=== PATIENT | female | born 1960 | race Caucasian/White ===

== ENCOUNTER 2017-03-21 10:10 | Day surgery (SDC) | payer BC ==
[2017-03-19 17:20] VITALS: BMI 25.7
[~2017-03-21 10:10] MED LIST: LACTATED RINGERS 1,000 ML IV SCH
[2017-03-21 10:50] VITALS: RESP 16; TEMP 97.7
[2017-03-21] MEDS ORDERED: LIDOCAINE 1% 20 ML VIAL (10MG/ML) FOR IV START INTRADERMA ONE (10:50)
[2017-03-21] MEDS ORDERED: PROPOFOL 10 MG/ML 20 ML VIAL IV ONE (12:03)
--- NOTE | 2017-03-21 12:20 | P.PCN ---
Date of Procedure: 03/21/17 Procedure(s) Performed: BRIEF HISTORY: Patient is a 56-year-old pleasant female, scheduled for an elective colonoscopy as a part of screening for colon neoplasia. PROCEDURE PERFORMED: Colonoscopy. PREOPERATIVE DIAGNOSIS: Screening for colon cancer. IV sedation per Anesthesia. PROCEDURE: After informed consent was obtained, the patient, was brought into the endoscopy unit. IV sedation was administered by Anesthesia under continuous monitoring. Digital rectal examination was normal. Initially the Olympus CF- 160 flexible video colonoscope was then inserted in the rectum, gradually advanced into the cecum without any difficulty. Careful examination was performed as the scope was gradually being withdrawn. Ileocecal valve and the appendiceal orifice were visualized and appeared normal. Prep was excellent. Mucosa of the cecum, ascending colon, transverse colon, descending colon, sigmoid colon, and rectum appeared normal. Retroflexion was performed in the rectum and no lesions were seen. The patient tolerated the procedure well. IMPRESSION: Normal-appearing colon from rectum to cecum with no evidence of colorectal neoplasia. RECOMMENDATIONS: Findings of this examination were discussed with the patient as well as her family. She was advised to have a repeat screening colonoscopy in 10 years.
[2017-03-21 12:45] VITALS: BP 116/75; PULSE 74
== END 2017-03-21 13:06 | disposition home or self-care (01) ==
LOC: ORWHC2ENDO 10:10
PROVIDERS: ATTEND Internal Medicine Gastroenterology
DX: Z12.11 Encounter for screening for malignant neoplasm of colon (principal); I25.10 Atherosclerotic heart disease of native coronary artery without angina pectoris; I10 Essential (primary) hypertension; Z87.891 Personal history of nicotine dependence; Z95.5 Presence of coronary angioplasty implant and graft; Z87.19 Personal history of other diseases of the digestive system; Z79.82 Long term (current) use of aspirin; Z79.1 Long term (current) use of non-steroidal anti-inflammatories (NSAID); Z79.899 Other long term (current) drug therapy; Z88.5 Allergy status to narcotic agent; Z88.0 Allergy status to penicillin; Z88.8 Allergy status to other drugs, medicaments and biological substances
CPT/HCPCS: J2704; G0121

== ENCOUNTER → 2017-05-14 | Outpatient (CLI) | payer BC ==
[2017-05-14 14:40] LABS: CH 30.4; CHCM 32.1; HCT 50.2 % (34.0-46.0); HDW 2.19; HGB 15.6 gm/dL (11.4-16.0); MCH 29.5 pg (25.0-35.0); MCV 95.1 fL (80.0-100.0); Mean Platelet Volume 7.9; RBC 5.28 m/uL (3.80-5.40); RDW 14.6 % (11.5-15.5); WBC 10.5 k/uL (3.8-10.6)
[2017-05-14 14:54] LABS: Anion Gap 10 mmol/L; Blood Urea Nitrogen 20 mg/dL (7-17); Carbon Dioxide 25 mmol/L (22-30); Chloride 106 mmol/L (98-107); Non-African American GFR(MDRD) 58 (>60 ml/min/1.73 sqM); Potassium 4.6 mmol/L (3.5-5.1); Sodium 141 mmol/L (137-145)
== END | disposition home or self-care (01) ==
LOC: LABPAT 14:06
PROVIDERS: ATTEND Internal Medicine Interventional Cardiology
DX: Z01.812 Encounter for preprocedural laboratory examination (principal); I25.10 Atherosclerotic heart disease of native coronary artery without angina pectoris
CPT/HCPCS: 80051; 82565; 84520; 85027

== ENCOUNTER 2017-05-30 05:54 | Day surgery (SDC) | payer BC ==
[2017-05-28 15:20] VITALS: BMI 25.9
[~2017-05-30 05:54] MED LIST changes: +ALPRAZolam 0.25 MG TAB PO PRN; +ALPRAZolam 0.5 MG TAB PO PRN; +ASPIRIN 325 MG TAB PO STA; -LACTATED RINGERS 1,000 ML IV SCH; +NITROGLYCERIN SL TABS 0.4 MG TAB SUBLINGUAL PRN; +SODIUM CHLORIDE 0.9% 1,000 ML in EMPTY BAG 1 BAG IV ONE
[2017-05-30 06:55] VITALS: RESP 20; TEMP 98.4
[2017-05-30 07:00] LABS: Anion Gap 7 mmol/L; Blood Urea Nitrogen 14 mg/dL (7-17); Calcium 9.7 mg/dL (8.4-10.2); Carbon Dioxide 26 mmol/L (22-30); Chloride 109 mmol/L (98-107); Glucose 98 mg/dL (74-99); Non-African American GFR(MDRD) >60 (>60 ml/min/1.73 sqM); Potassium 4.3 mmol/L (3.5-5.1); Sodium 142 mmol/L (137-145)
[2017-05-30] MEDS ORDERED: VERAPAMIL 2.5 MG/ML 2 ML AMP ONE (07:16)
[2017-05-30] MEDS ORDERED: fentaNYL (PF) 50 MCG/ML 2 ML AMP ONE (07:17)
[2017-05-30] MEDS ORDERED: LIDOCAINE 2% INJ 20 MG/ML (20 ML MDV) ONE (07:17)
[2017-05-30] MEDS ORDERED: fentaNYL (PF) 50 MCG/ML 2 ML AMP IV ONE (07:27)
[2017-05-30] MEDS ORDERED: IV FLUID CONTINUATION 1,000 ML IV ONE (07:27)
[2017-05-30] MEDS ORDERED: LIDOCAINE 2% INJ 20 MG/ML SQ ONE (07:30)
[2017-05-30] MEDS ORDERED: MIDAZOLAM 2 MG/2 ML VIAL ONE (07:31)
[2017-05-30] MEDS ORDERED: MIDAZOLAM 2 MG/2 ML VIAL IV ONE (07:33)
[2017-05-30] MEDS ORDERED: VERAPAMIL SYRINGE (5 MG/10 ML) INTRAARTER ONE (07:35)
[2017-05-30] MEDS ORDERED: HEPARIN SODIUM 1,000 UN/ML (10ML VL) ONE (07:42)
[2017-05-30] MEDS ORDERED: IOHEXOL 350 MG/ML 125ML BOTTLE INJ ONE (07:47)
[2017-05-30] MEDS ORDERED: RX INFO: IV CONTRAST WAS GIVEN 1 EACH MISC MISCELLANE PRN (08:07)
[2017-05-30] MEDS ORDERED: DICYCLOMINE 10 MG CAP PO PRN (08:08)
[2017-05-30] MEDS ORDERED: NICOTINE POLACRILEX 2 MG GUM BUCCAL PRN (08:08)
[2017-05-30] MEDS ORDERED: IPRATROPIUM-ALBUTEROL 3 ML NEB INHALATION PRN (08:08)
[2017-05-30] MEDS ORDERED: IBUPROFEN 400 MG TAB PO PRN (08:08)
[2017-05-30] MEDS ORDERED: LIDOCAINE 5% PATCH TOPICAL PRN (08:08)
[2017-05-30] MEDS ORDERED: CYCLOBENZAPRINE 10 MG TAB PO PRN (08:08)
[2017-05-30] MEDS ORDERED: NON-FORMULARY DRUG (Alprazolam [Xanax] 1 MG) PO PRN (08:08)
[2017-05-30] MEDS ORDERED: SODIUM CHLORIDE 0.9% 1,000 ML IV SCH (08:15)
[2017-05-30] MEDS ORDERED: SULFACETAMIDE SOD 10% OPHTH DROPS 15 ML BTL LEFT EYE SCH (08:15)
--- NOTE | 2017-05-30 08:25 | CC ---
CARDIAC CATHETERIZATION REPORT Ms. Farfan is a 56-year-old female known history of coronary artery disease, history of hypertension, hyperlipidemia who has been complaining of progressive symptoms of dyspnea on exertion. She underwent myocardial perfusion imaging that revealed a partially reversible anteroapical wall defect. In view of that, recommendation made regarding cardiac catheterization. The procedures, risks and complications were discussed with the patient who is in full understanding and agreement. 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 Using Xylocaine anesthesia and Seldinger technique, a 6-[place]izen [place] sheath was introduced in the right radial artery. Selective right and left coronary angiography was performed using 5- [place] 3 and half bend right and left Leora catheter. Multiple views of the coronary artery including hemiaxial was obtained. Following that, 5-[place]izen [place] tight pigtail catheter was introduced into the left ventricle and a 30 degree ANTHONY view of the left ventricle was obtained. Following that, the catheter and sheaths were removed. Hemostasis was obtained with deployment of a TR band. There was no immediate complication. The patient was returned to her room in stable condition. Of note, the patient received 4000 units of intravenous heparin as well as intra-arterial verapamil. FINDINGS: 1. Left main: This is the short size vessel bifurcating into left circumflex, left anterior descending artery. Left main coronary artery has no evidence of high- grade stenosis. 2. Left anterior descending artery: This is a large-sized vessel reaching to the apex with a wraparound the apex segment. The left anterior descending artery gives rise to two diagonal branch of small to moderate caliber. The left anterior descending artery has no evidence of high-grade stenosis. 3. Left circumflex: This is a large nondominant vessel giving rise to a large obtuse marginal branch. The left circumflex as well as branches have no evidence of obstructive coronary artery disease. 4. Right coronary artery: This is a large dominant vessel bifurcating distally to PDA and posterolateral segment and branches. The stented segment in the proximal and mid area are patent with minimal 10% plaque. The rest of the vessel has no high- grade stenosis. 5. Left ventriculogram: Left ventriculogram was performed in 30 degree ANTHONY view and revealed mild small anteroapical hypokinesis, ejection fraction of 50%. There was no mitral regurgitation. 6. HEMODYNAMICS: There was no gradient across the aortic valve. The left ventricular end-diastolic pressure was 16 mmHg. CONCLUSION: 1. Minimal obstructive disease involving the right coronary artery. 2. Minimal anteroapical hypokinesis. RECOMMENDATION: In view of findings and anatomy I have recommend continued medical therapy with aggressive coronary risk factor modifications that have been initiated. Those findings and recommendations were discussed with the patient and her family and are in full understanding and agreement. Duration of procedure is 22 minutes. MMODL / IJN: [id number] /
--- NOTE | 2017-05-30 08:25 | LTR ---
DATE OF SERVICE: 05/30/[address] Olivier: I had the pleasure of performing cardiac catheterization on Ms. Farfan at [facility] on May 30. A full copy of procedure note will be forwarded to you. In brief, she was found to have no evidence of high-grade stenosis and no progression of disease in the right coronary artery. Based on those findings, I have recommend continued medical therapy with aggressive coronary risk factor modifications that you have initiated. Thank you again for allowing me to participate in her care. Please feel free to call for any questions. Sincerely yours, MMODL / IJN: [id number] /
[2017-05-30] MEDS ORDERED: ETODOLAC 400 MG TAB PO SCH (09:00)
[2017-05-30] MEDS ORDERED: [UNRECOGNIZED DRUG - REMARK] PO SCH (09:00)
[2017-05-30] MEDS ORDERED: SYMBICORT 160-4.5 MCG INHALER INHALATION SCH (09:00)
[2017-05-30] MEDS ORDERED: METOPROLOL SUCCINATE (ER) 25 MG TAB.ER.24H PO SCH (09:00)
[2017-05-30] MEDS ORDERED: ASPIRIN 81 MG PO SCH (09:00)
[2017-05-30] MEDS ORDERED: UBIDECARENONE 200 MG PO SCH (09:00)
[2017-05-30] MEDS ORDERED: IPRATROPIUM-ALBUTEROL 3 ML NEB IH SCH (09:00)
[2017-05-30] MEDS ORDERED: NON-FORMULARY DRUG (Magnesium [Magnesium] 400 MG) PO SCH (09:00)
[2017-05-30] MEDS ORDERED: [UNRECOGNIZED DRUG - REMARK] PO SCH (09:00)
[2017-05-30] MEDS ORDERED: CHOLECALCIFEROL 1,000 UNIT TAB PO SCH (09:00)
[2017-05-30] MEDS ORDERED: MULTIVITAMINS, THERA 1 EACH TAB PO SCH (09:00)
[2017-05-30 13:24] VITALS: BP 128/59; PULSE 84
[2017-05-30] MEDS ORDERED: AMITRIPTYLINE HCL 25 MG TAB PO SCH (21:00)
== END 2017-05-30 13:24 | disposition home or self-care (01) ==
LOC: CATHCVL 05:54
PROVIDERS: ATTEND Internal Medicine Interventional Cardiology
DX: I25.10 Atherosclerotic heart disease of native coronary artery without angina pectoris (principal); I10 Essential (primary) hypertension; E78.2 Mixed hyperlipidemia; R00.2 Palpitations; M19.90 Unspecified osteoarthritis, unspecified site; J44.9 Chronic obstructive pulmonary disease, unspecified; E78.00 Pure hypercholesterolemia, unspecified; Z79.82 Long term (current) use of aspirin; Z79.899 Other long term (current) drug therapy
CPT/HCPCS: 93458; 80048; 81025; C1894; C1769; J2001; J2250; J3010; J1644; Q9967

== ENCOUNTER → 2017-06-26 | Outpatient (CLI) | payer OTHER ==
[2017-06-26 10:16] LABS: Basophils % (A) 1 %; Eosinophils # (A) 0.2 k/uL (0-0.7); Eosinophils % (A) 3 %; HCT 45.3 % (34.0-46.0); Lymphocytes # (A) 1.6 k/uL (1.0-4.8); Lymphocytes % (A) 28 %; MCH 30.3 pg (25.0-35.0); MCHC 33.1 g/dL (31.0-37.0); MCV 91.6 fL (80.0-100.0); Mean Platelet Volume 7.4; Monocytes # (A) 0.4 k/uL (0-1.0); Monocytes % (A) 7 %; Neutrophils # (A) 3.4 k/uL (1.3-7.7); Neutrophils % (A) 59 %; Platelet Count 201 k/uL (150-450); RBC 4.95 m/uL (3.80-5.40); RDW 13.5 % (11.5-15.5); WBC 5.7 k/uL (3.8-10.6)
[2017-06-26 10:42] LABS: ALT 39 U/L (9-52); AST 24 U/L (14-36); Alkaline Phosphatase 65 U/L (38-126); Anion Gap 10 mmol/L; Blood Urea Nitrogen 17 mg/dL (7-17); Calcium 9.3 mg/dL (8.4-10.2); Carbon Dioxide 25 mmol/L (22-30); Chloride 109 mmol/L (98-107); Cholesterol 171 mg/dL (<200); Creatine Kinase 89 U/L (30-135); Glucose 99 mg/dL (74-99); HDL Cholesterol 73 mg/dL (40-60); LDL Cholesterol,Calculated 81 mg/dL (0-99); Sodium 144 mmol/L (137-145); Total Bilirubin 0.6 mg/dL (0.2-1.3); Total Protein 6.7 g/dL (6.3-8.2); Triglycerides 85 mg/dL (<150)
[2017-06-26 10:58] LABS: T4, Free (Free Thyroxine) 1.47 ng/dL (0.78-2.19)
== END | disposition home or self-care (01) ==
LOC: LABWHC1 09:49
PROVIDERS: ATTEND Family Medicine
DX: I25.9 Chronic ischemic heart disease, unspecified (principal); E03.9 Hypothyroidism, unspecified
CPT/HCPCS: 36415; 80053; 80061; 82550; 84439; 84443; 84481; 85025

== ENCOUNTER → 2017-10-14 | Outpatient (CLI) | payer OTHER ==
[2017-10-14 10:22] LABS: ALT 35 U/L (9-52); AST 26 U/L (14-36); Albumin 4.2 g/dL (3.5-5.0); Alkaline Phosphatase 73 U/L (38-126); Anion Gap 12 mmol/L; Blood Urea Nitrogen 18 mg/dL (7-17); Calcium 9.2 mg/dL (8.4-10.2); Carbon Dioxide 27 mmol/L (22-30); Chloride 107 mmol/L (98-107); Glucose 93 mg/dL (74-99); Sodium 146 mmol/L (137-145); Total Bilirubin 0.4 mg/dL (0.2-1.3); Total Protein 6.8 g/dL (6.3-8.2)
== END | disposition home or self-care (01) ==
LOC: LABWHC1 07:24
PROVIDERS: ATTEND Internal Medicine
DX: E27.3 Drug-induced adrenocortical insufficiency (principal)
CPT/HCPCS: 36415; 80053; 82024; 82533

== ENCOUNTER → 2018-05-11 | Outpatient (CLI) | payer OTHER ==
--- NOTE | 2018-05-13 11:06 | MM ---
Reason for exam: screening (asymptomatic). Last mammogram was performed 1 year and 2 months ago. History: Patient is postmenopausal and had first child at age 36. Silicone gel implants in both breasts, 2016. Saline implants in both breasts, 2001. Cyst aspiration of both breasts. Cyst aspiration of the left breast. Took estrogen for 3 years. Physical Findings: A clinical breast exam by your physician is recommended on an annual basis and results should be correlated with mammographic findings. MG 3D Screen Mammo Imp/Cad Bilateral CC, MLO, and ID view(s) were taken. Prior study comparison: February 28, 2017, bilateral MG 3d screen mammo imp/cad. March 16, 2015, bilateral MG diag mamm implants RADHA w CAD. There are scattered fibroglandular densities. Bilateral breast implants. No significant changes when compared with prior studies. ASSESSMENT: Benign, BI-RAD 2 RECOMMENDATION: Routine screening mammogram of both breasts.
== END | disposition home or self-care (01) ==
LOC: RADMAMWWP 13:24
PROVIDERS: ATTEND Obstetrics & Gynecology
DX: Z12.31 Encounter for screening mammogram for malignant neoplasm of breast (principal)
CPT/HCPCS: 77063; 77067

== ENCOUNTER → 2018-08-11 | Outpatient (CLI) | payer OTHER ==
--- NOTE | 2018-08-11 15:50 | CT ---
EXAMINATION TYPE: CT chest wo con DATE OF EXAM: 08/11/2018 COMPARISON: CTA chest May 27, 2017 HISTORY: SOB, Aortic aneurysm CT DLP: 232.3 mGycm. Automated Exposure Control for Dose Reduction was Utilized. TECHNIQUE: CT scan of the thorax is performed without IV contrast. FINDINGS: LUNGS: Mild to moderate underlying emphysematous change most prominent in the upper lungs is redemons trated. No suspicious nodules or masses are present. No pleural effusion or pneumothorax is seen bila terally. No suspicious consolidation is present. Tracheobronchial tree is patent. MEDIASTINUM: Lack of IV contrast is noted to limit evaluation for mediastinal and especially hilar ad enopathy. There are no definitive greater than 1 cm hilar or mediastinal lymph nodes. No cardiomega ly or pericardial effusion is seen. Ascending aorta measures up to 3.6 cm in diameter at level of pul monary bifurcation axial image 29. No significant change from prior CT. There is suspected coronary s tent in the distal RCA. OTHER: Bilateral breast implants are redemonstrated only partially imaged. Cholecystectomy clips are redemonstrated. Moderate multilevel spurring midthoracic spine is again seen. IMPRESSION: Accounting for technical differences fairly stable 3.6 cm ectasia of the ascending aorta.
== END ==
LOC: RADCTMAIN 14:38
PROVIDERS: ATTEND Family Medicine
DX: I77.810 Thoracic aortic ectasia (principal)
CPT/HCPCS: 71250

== ENCOUNTER → 2019-07-30 | Outpatient (CLI) | payer OTHER ==
--- NOTE | 2019-08-03 09:09 | MM ---
Reason for exam: screening (asymptomatic). Last mammogram was performed 1 year and 3 months ago. History: Patient is postmenopausal and had first child at age 36. Silicone gel implants in both breasts, 2016. Saline implants in both breasts, 2001. Cyst aspiration of both breasts. Cyst aspiration of the left breast. Took estrogen for 3 years. Physical Findings: A clinical breast exam by your physician is recommended on an annual basis and results should be correlated with mammographic findings. MG Screening Mammo Implant/CAD Bilateral CC, MLO, and ID view(s) were taken. Prior study comparison: May 11, 2018, bilateral MG 3d screen mammo imp/cad. February 28, 2017, bilateral MG 3d screen mammo imp/cad. There are scattered fibroglandular densities. Bilateral retropectoral silicone implants. No significant changes when compared with prior studies. ASSESSMENT: Benign, BI-RAD 2 RECOMMENDATION: Routine screening mammogram of both breasts in 1 year.
== END | disposition home or self-care (01) ==
LOC: RADMAMWWP 13:39
PROVIDERS: ATTEND Obstetrics & Gynecology
DX: Z12.31 Encounter for screening mammogram for malignant neoplasm of breast (principal)
CPT/HCPCS: 77067

== ENCOUNTER 2019-08-12 18:23 | Emergency (ER) | payer OTHER ==
[2019-08-12 18:32] VITALS: RESP 18
[2019-08-12] MEDS ORDERED: ASPIRIN 81 MG PO STA (18:48)
[2019-08-12] MEDS ORDERED: MORPHINE SULFATE 2 MG/ML SYRINGE IVP STA ×2 (18:48→20:28)
[2019-08-12] MEDS ORDERED: SODIUM CHLORIDE 0.9% 1,000 ML IV STA (18:48)
[2019-08-12] MEDS ORDERED: ONDANSETRON 4 MG/2 ML VIAL IVP STA (18:49)
[2019-08-12] MEDS ORDERED: KETOROLAC 30 MG/ML 1 ML VIAL IVP STA (18:49)
[2019-08-12] MEDS ORDERED: IPRATROPIUM-ALBUTEROL 3 ML NEB INHALATION STA (18:55)
--- NOTE | 2019-08-12 18:57 | ED ---
General Adult HPI - General Chief complaint: Chest Pain Stated complaint: SOB, Back Pain Time Seen by Provider: 08/12/19 18:39 Source: patient Mode of arrival: ambulatory Limitations: no limitations - History of Present Illness Initial comments: 59-year-old female patient presents to the emergency department today for evaluation of right sided chest pain radiating through to the back. Patient states she's had the pain last couple of days though more severe today. Patient states the pain is constant, she is unable to describe the type of pain she is experiencing. Patient denies any increase in the pain with movement or deep breathing. States she does feel somewhat short of breath. Patient states that she does have a intermittent cough due to emphysema. There is any sputum production. She denies any nausea or vomiting with this. Denies any sweats. Patient states she's had multiple abdominal surgeries including cholecystectomy. His any hematuria, dysuria, urinary frequency, urinary urgency. Patient denies any recent rash, fever, chills, abdominal pain, diarrhea, constipation, numbness, tingling, dizziness, weakness, headache, visual changes, or any other complaints. - Related Data Home Medications Medication Instructions Recorded Confirmed ALPRAZolam [Xanax] 1 mg PO BID PRN 04/18/14 05/28/17 Amitriptyline HCl [Elavil] 25 mg PO HS 04/18/14 05/28/17 Aspirin 81 mg PO BID 04/18/14 05/30/17 Budesonide-Formot 160-4.5 Mcg 2 puff INHALATION BID 04/18/14 05/28/17 [Symbicort 160-4.5 Mcg Inhaler] Dicyclomine [Bentyl] 10 mg PO TID PRN 04/18/14 05/30/17 Ipratropium-Albuterol Nebulize 3 ml IH QID 04/18/14 05/28/17 [Duoneb 0.5 mg-3 mg/3 ml Soln] Lidocaine 5% Patch [Lidoderm] 1 patch TOPICAL DAILY PRN 04/18/14 05/30/17 Metoprolol Succinate (ER) [Toprol 25 mg PO DAILY 04/18/14 05/30/17 XL] Nitroglycerin Sl Tabs [Nitrostat] 0.4 mg SL DIRECTED PRN 04/18/14 05/28/17 Plant Stanol Mariza [Cholest Off] 900 mg PO DAILY 04/18/14 05/30/17 Ubidecarenone [Coenzyme Q10] 200 mg PO DAILY 04/18/14 05/30/17 Cartilage/Collagen II/Hyaluron 1 each PO DAILY 04/12/15 05/30/17 [Move Free Ultra Tablet] Cholecalciferol [Vitamin D3] 5,000 unit PO DAILY 04/12/15 05/30/17 Cyclobenzaprine [Flexeril] 10 mg PO TID PRN 04/12/15 05/30/17 Nicotine Polacrilex [Nicorette Gum] 2 mg BUCCAL Q4H PRN 04/12/15 05/30/17 Etodolac [Lodine] 400 mg PO BID 03/19/17 05/30/17 Ibuprofen 400 mg PO Q8HR PRN 03/19/17 05/30/17 Magnesium 400 mg PO DAILY 03/19/17 05/30/17 Multivitamins, Thera [Multivitamin 1 tab PO DAILY 03/19/17 05/30/17 (formulary)] Ipratropium/Albuterol Sulfate 1 puff INHALATION QID PRN 05/28/17 05/28/17 [Combivent Respimat Inhaler] Sulfacetamide Sodium 1 drops LEFT EYE Q2-3H 05/30/17 05/30/17 [[facility] Allergies Allergy/AdvReac Type Severity Reaction Status Date / Time amoxicillin [Amoxicillin] Allergy Nausea & Verified 08/12/19 18:33 Vomiting amoxicillin trihydrate Allergy Rapid Verified 08/12/19 18:33 [From Augmentin] Heart Rate megestrol acetate Allergy adrenal Verified 08/12/19 18:33 [From Megace] insufficiency potassium clavulanate Allergy Rapid Verified 08/12/19 18:33 [From Augmentin] Heart Rate terconazole [From Terazol 3] Allergy Rash/Hives Verified 08/12/19 18:33 codeine AdvReac Unknown Nausea & Verified 08/12/19 18:33 Vomiting hydrocodone [From Vicodin] AdvReac Unknown Nausea & Verified 08/12/19 18:33 Vomiting nitrofurantoin AdvReac Unknown Verified 08/12/19 18:33 nitrofurantoin AdvReac Nausea & Verified 08/12/19 18:33 macrocrystalline Vomiting [From Macrobid] Cvuvyww-Oja-Ccv Reductase AdvReac muscle Verified 08/12/19 18:33 Inhibitor cramps sumatriptan [From Imitrex] AdvReac Rapid Verified 08/12/19 18:33 Heart Rate sumatriptan succinate AdvReac Rapid Verified 08/12/19 18:33 [From Imitrex] Heart Rate pnuemonia injection Allergy Anaphylaxis Uncoded 08/12/19 18:33 Review of Systems ROS Statement: Those systems with pertinent positive or pertinent negative responses have been documented in the HPI. ROS Other: All systems not noted in ROS Statement are negative. Past Medical History Past Medical History: COPD, Fibromyalgia, GERD/Reflux, Hypertension, Myocardial Infarction (OR), Musculoskeletal Disorder, Osteoarthritis (OA) Additional Past Medical History / Comment(s): BUSTER daughter, Raynauds disease, past hx. of adrenal insufficiency, Herniated discs , back pain, migraines, IBS. Last Myocardial Infarction Date:: 07/2006 History of Any Multi-Drug Resistant Organisms: None Reported Past Surgical History: Appendectomy, Breast Surgery, Section, Cholecystectomy, Heart Catheterization With Stent, Hernia Repair, Tonsillectomy Additional Past Surgical History / Comment(s): cardiac stent x2, abdominal laparoscopy x5, abd. surgery for adhesions, breast augmentation, blepharoplasty, umbilical hernia. Past Anesthesia/Blood Transfusion Reactions: Motion Sickness Additional Past Anesthesia/Blood Transfusion Reaction / Comment(s): slow to wake up @times, MIGRAINES. Date of Last Stent Placement:: 2006 Past Psychological History: Anxiety Smoking Status: Former smoker - Past Family History Mother Additional Family Medical History / Comment(s): EMPHYSEMA, possible lung cancer General Exam Limitations: no limitations General appearance: alert, in no apparent distress, other (Physical well- developed, well-nourished adult female patient in no acute distress. Vital si gns upon presentation are temperature 98.1F, pulse 98, respirations 18, blood pressure 142/87, pulse ox 97% on room air.) Eye exam: Present: normal appearance, PERRL, EOMI. Absent: scleral icterus, conjunctival injection, periorbital swelling ENT exam: Present: normal exam, normal oropharynx, mucous membranes moist Respiratory exam: Present: wheezes (Faint expiratory wheezing noted in the posterior lung segura). Absent: normal lung sounds bilaterally, respiratory distress, rales, rhonchi, stridor, chest wall tenderness Cardiovascular Exam: Present: regular rate, normal rhythm, normal heart sounds. Absent: systolic murmur, diastolic murmur, rubs, gallop, clicks GI/Abdominal exam: Present: soft, normal bowel sounds. Absent: distended, tenderness, guarding, rebound, rigid Neurological exam: Present: alert, oriented X3, CN II-XII intact Psychiatric exam: Present: normal affect, normal mood Skin exam: Present: warm, dry, intact, normal color. Absent: rash Course Vital Signs 08/12/19 08/12/19 08/12/19 18:30 18:37 19:11 Temperature 98.1 F Pulse Rate 98 87 Respiratory 18 18 Rate Blood Pressure 142/87 O2 Sat by Pulse 97 Oximetry 08/12/19 08/12/19 08/12/19 19:20 20:13 22:23 Temperature 97.7 F 97.7 F Pulse Rate 93 82 85 Respiratory 18 18 Rate Blood Pressure 141/81 132/89 O2 Sat by Pulse 97 97 Oximetry Medical Decision Making - Medical Decision Making 59-year-old female patient presents to the emergency department today for evaluation of right chest pain with radiation through to the back. Patient is also reporting some shortness of breath. Physical examination revealed faint x- ray wheezing in the posterior lung segura. No abdominal tenderness. Labs reviewed and are relatively unremarkable. D-dimer was elevated at 0.7, we did perform CT angiography of the chest which was negative. Chest x-ray was negative. Patient does admit that she did have a severe coughing episode a day and a half ago which is around the time her pain started. She states she may have pulled a muscle. She will be discharged from with instructions to take her home antibiotics and steroids as directed by her mix chemist. She is also instructed to follow-up with her primary care physician for recheck in 1-2 days. She did mention having hoarse voice on a daily basis which she believes is from chronic coughing however did inform her to follow-up with the ENT specialist for further evaluation to rule out tumor. - Lab Data Result diagrams: 08/12/19 18:53 08/12/19 18:53 Lab Results 08/12/19 08/12/19 08/12/19 Range/Units 18:53 18:53 18:53 WBC 6.4 (3.8-10.6) k/uL RBC 5.35 (3.80-5.40) m/uL Hgb 16.1 H (11.4-16.0) gm/dL Hct 47.8 H (34.0-46.0) % MCV 89.3 (80.0-100.0) fL MCH 30.0 (25.0-35.0) pg MCHC 33.6 (31.0-37.0) g/dL RDW 12.5 (11.5-15.5) % Plt Count 204 (150-450) k/uL Neutrophils % 48 % Lymphocytes % 36 % Monocytes % 6 % Eosinophils % 6 % Basophils % 1 % Neutrophils # 3.1 (1.3-7.7) k/uL Lymphocytes # 2.3 (1.0-4.8) k/uL Monocytes # 0.4 (0-1.0) k/uL Eosinophils # 0.4 (0-0.7) k/uL Basophils # 0.0 (0-0.2) k/uL PT (9.0-12.0) sec INR (<1.2) APTT (22.0-30.0) sec D-Dimer (<0.60) mg/L FEU Sodium 137 (137-145) mmol/L Potassium 4.0 (3.5-5.1) mmol/L Chloride 103 (98-107) mmol/L Carbon Dioxide 25 (22-30) mmol/L Anion Gap 9 mmol/L BUN 14 (7-17) mg/dL Creatinine 0.78 (0.52-1.04) mg/dL Est GFR (CKD-EPI)AfAm >90 (>60 ml/min/1.73 sqM) Est GFR (CKD-EPI)NonAf 84 (>60 ml/min/1.73 sqM) Glucose 93 (74-99) mg/dL Calcium 9.8 (8.4-10.2) mg/dL Magnesium 1.8 (1.6-2.3) mg/dL Total Bilirubin 0.4 (0.2-1.3) mg/dL AST 39 H (14-36) U/L ALT 32 (4-34) U/L Alkaline Phosphatase 83 (38-126) U/L Troponin I <0.012 (0.000-0.034) ng/mL Total Protein 7.2 (6.3-8.2) g/dL Albumin 4.5 (3.5-5.0) g/dL Urine Color Urine Appearance (Clear) Urine pH (5.0-8.0) Ur Specific [place] (1.001-1.035) Urine Protein (Negative) Urine Glucose (UA) (Negative) Urine Ketones (Negative) Urine Blood (Negative) Urine Nitrite (Negative) Urine Bilirubin (Negative) Urine Urobilinogen (<2.0) mg/dL Ur Leukocyte Esterase (Negative) 08/12/19 08/12/19 Range/Units 19:30 19:30 WBC (3.8-10.6) k/uL RBC (3.80-5.40) m/uL Hgb (11.4-16.0) gm/dL Hct (34.0-46.0) % MCV (80.0-100.0) fL MCH (25.0-35.0) pg MCHC (31.0-37.0) g/dL RDW (11.5-15.5) % Plt Count (150-450) k/uL Neutrophils % % Lymphocytes % % Monocytes % % Eosinophils % % Basophils % % Neutrophils # (1.3-7.7) k/uL Lymphocytes # (1.0-4.8) k/uL Monocytes # (0-1.0) k/uL Eosinophils # (0-0.7) k/uL Basophils # (0-0.2) k/uL PT 9.5 (9.0-12.0) sec INR 0.9 (<1.2) APTT 23.2 (22.0-30.0) sec D-Dimer 0.74 H (<0.60) mg/L FEU Sodium (137-145) mmol/L Potassium (3.5-5.1) mmol/L Chloride (98-107) mmol/L Carbon Dioxide (22-30) mmol/L Anion Gap mmol/L BUN (7-17) mg/dL Creatinine (0.52-1.04) mg/dL Est GFR (CKD-EPI)AfAm (>60 ml/min/1.73 sqM) Est GFR (CKD-EPI)NonAf (>60 ml/min/1.73 sqM) Glucose (74-99) mg/dL Calcium (8.4-10.2) mg/dL Magnesium (1.6-2.3) mg/dL Total Bilirubin (0.2-1.3) mg/dL AST (14-36) U/L ALT (4-34) U/L Alkaline Phosphatase (38-126) U/L Troponin I (0.000-0.034) ng/mL Total Protein (6.3-8.2) g/dL Albumin (3.5-5.0) g/dL Urine Color Colorless Urine Appearance Clear (Clear) Urine pH 6.5 (5.0-8.0) Ur Specific [place] 1.006 (1.001-1.035) Urine Protein Negative (Negative) Urine Glucose (UA) Negative (Negative) Urine Ketones Negative (Negative) Urine Blood Negative (Negative) Urine Nitrite Negative (Negative) Urine Bilirubin Negative (Negative) Urine Urobilinogen <2.0 (<2.0) mg/dL Ur Leukocyte Esterase Negative (Negative) - Radiology Data Radiology results: report reviewed, image reviewed Two-view x-ray of the chest is obtained. Report was reviewed in its entirety. Impression by Dr. Carpenter shows normal chest. No change. CT chest angiography for PE was obtained. Report was reviewed in its entirety. Impression by Dr. Carpenter shows no evidence of pulmonary embolism. Pulmonary emphysema. Disposition Clinical Impression: Chest pain Disposition: HOME SELF-CARE Condition: Good Instructions (If sedation given, give patient instructions): Chest Pain (ED), Costochondritis (ED) Additional Instructions: Take medication as directed. Follow-up with her primary care physician for recheck in 1-2 days. Follow-up with ENT for further evaluation of your hoarseness. Return to the emergency department immediately for any new, worsening, or concerning symptoms. Is patient prescribed a controlled substance at d/c from ED?: No Referrals: Justino Olivier MD [Primary Care Provider] - 1-2 days Wayne Ruby MD [STAFF PHYSICIAN] - 1-2 days Time of Disposition: 22:15
[2019-08-12 19:20] LABS: Basophils % (A) 1 %; Eosinophils # (A) 0.4 k/uL (0-0.7); Eosinophils % (A) 6 %; HCT 47.8 % (34.0-46.0); HGB 16.1 gm/dL (11.4-16.0); Lymphocytes # (A) 2.3 k/uL (1.0-4.8); Lymphocytes % (A) 36 %; MCHC 33.6 g/dL (31.0-37.0); MCV 89.3 fL (80.0-100.0); Mean Platelet Volume 8.4; Monocytes # (A) 0.4 k/uL (0-1.0); Monocytes % (A) 6 %; Neutrophils # (A) 3.1 k/uL (1.3-7.7); Neutrophils % (A) 48 %; Platelet Count 204 k/uL (150-450); RBC 5.35 m/uL (3.80-5.40); RDW 12.5 % (11.5-15.5); WBC 6.4 k/uL (3.8-10.6)
[2019-08-12 19:24] LABS: ALT 32 U/L (4-34); AST 39 U/L (14-36); African American GFR (CKD) >90 (>60 ml/min/1.73 sqM); Albumin 4.5 g/dL (3.5-5.0); Alkaline Phosphatase 83 U/L (38-126); Anion Gap 9 mmol/L; Blood Urea Nitrogen 14 mg/dL (7-17); Calcium 9.8 mg/dL (8.4-10.2); Carbon Dioxide 25 mmol/L (22-30); Chloride 103 mmol/L (98-107); Glucose 93 mg/dL (74-99); Magnesium 1.8 mg/dL (1.6-2.3); Non-African American GFR(CKD) 84 (>60 ml/min/1.73 sqM); Sodium 137 mmol/L (137-145); Total Bilirubin 0.4 mg/dL (0.2-1.3); Total Protein 7.2 g/dL (6.3-8.2)
[2019-08-12 19:50] LABS: Appearance,Urine Clear (Clear); Bilirubin,Urine Negative (Negative); Blood,Urine Negative (Negative); Color,Urine Colorless; Glucose,Urine (UA) Negative (Negative); Ketones,Urine Negative (Negative); Leukocyte Esterase,Urine Negative (Negative); Nitrite,Urine Negative (Negative); PH, Urine 6.5 (5.0-8.0); Protein,Urine Negative (Negative); Specific Gravity,Urine 1.006 (1.001-1.035); Urobilinogen,Urine <2.0 mg/dL (<2.0)
--- NOTE | 2019-08-12 20:12 | XR ---
EXAMINATION TYPE: XR chest 2V DATE OF EXAM: 08/12/2019 COMPARISON: 06/20/2016 HISTORY: Cough TECHNIQUE: FINDINGS: Heart and mediastinum are normal. Lungs are clear of infiltrate. There is no pleural effusi on. The bony thorax is intact. Pulmonary vascularity is normal. IMPRESSION: Normal chest. No change.
[2019-08-12 20:15] VITALS: TEMP 97.7
[2019-08-12 20:16] LABS: INR 0.9 (<1.2); Partial Thromboplastin Time 23.2 sec (22.0-30.0); Prothrombin Time 9.5 sec (9.0-12.0)
[2019-08-12 20:19] LABS: D-Dimer 0.74 mg/L FEU (<0.60)
--- NOTE | 2019-08-12 21:24 | CT ---
EXAMINATION TYPE: CT chest angio for PE DATE OF EXAM: 08/12/2019 COMPARISON: HISTORY: Right sided chest pain, elevated d-dimer and shortness of breath. CT DLP: 331.6 mGycm Automated exposure control for dose reduction was used. CONTRAST: Performed with IV Contrast, patient injected with 69ml mL of Isovue 370. There are 3-D post processed images. There is pulmonary emphysema. There is bullous disease at the lung apices. There is no evidence of a pulmonary mass. There is minimal scarring or subsegmental atelectasis at the left posterior lung base . There is no pleural effusion. There are clips from cholecystectomy. Upper abdominal soft tissues ap pear intact. The bile ducts are not dilated. Heart size is normal. There is no pericardial effusion. There are bilateral breast implants. Thoracic aorta shows no aneurysm or dissection. The ascending aorta measures 3.5 cm. There is normal contrast opacification of the pulmonary arteries. I see no filling defect. There is some spurring in the thoracic spine. Bony thorax is intact. IMPRESSION: No evidence of pulmonary embolism. Pulmonary emphysema.
[2019-08-12] MEDS ORDERED: traMADol 50 MG STARTER PACK 3 TAB BTL PO STA (22:11)
[2019-08-12] MEDS ORDERED: ONDANSETRON 4 MG ODT STARTER PACK 2 TAB BTL PO STA (22:11)
[2019-08-12 22:26] VITALS: BP 132/89; PULSE 85
== END 2019-08-12 22:43 | disposition home or self-care (01) ==
LOC: EC 18:23
DX: R07.9 Chest pain, unspecified (principal); R06.02 Shortness of breath; R79.89 Other specified abnormal findings of blood chemistry; R06.2 Wheezing; R05 Cough; F41.9 Anxiety disorder, unspecified; J44.9 Chronic obstructive pulmonary disease, unspecified; M79.7 Fibromyalgia; K21.9 Gastro-esophageal reflux disease without esophagitis; I10 Essential (primary) hypertension; I25.2 Old myocardial infarction; M19.90 Unspecified osteoarthritis, unspecified site; Z79.1 Long term (current) use of non-steroidal anti-inflammatories (NSAID); Z79.51 Long term (current) use of inhaled steroids; Z79.82 Long term (current) use of aspirin; Z79.899 Other long term (current) drug therapy; Z87.891 Personal history of nicotine dependence; Z88.8 Allergy status to other drugs, medicaments and biological substances; Z88.5 Allergy status to narcotic agent; Z88.1 Allergy status to other antibiotic agents; Z95.5 Presence of coronary angioplasty implant and graft; Z90.49 Acquired absence of other specified parts of digestive tract; Z98.890 Other specified postprocedural states
CPT/HCPCS: 36415; 94640; 93005; 85379; 80053; 83735; 84484; 85025; 85610; 85730; 81003; 71046; 71275; 99285; 96374; 96375 ×2; 96376; 96361; J2405; J1885; J2270; S0119; Q9967

== ENCOUNTER → 2019-11-26 | Outpatient (CLI) | payer OTHER | END | disposition home or self-care (01) | LOC: CPPFTMAIN 08:44 | PROVIDERS: ATTEND Internal Medicine Critical Care Medicine | DX: J43.9 Emphysema, unspecified (principal) | CPT/HCPCS: 94060; 94726; 94729 ==

== ENCOUNTER → 2020-03-23 | Outpatient (CLI) | payer OTHER ==
[2020-03-24 00:57] LABS: African American GFR (CKD) 81.7 (60.0-200.0); Albumin 4.3 g/dL (3.80-4.90); Albumin/Globulin Ratio 2.26 (1.60-3.17); Anion Gap 12.6 mmol/L (4.00-12.00); BUN/Creat Ratio 23.33 Ratio (12.00-20.00); Calcium 9.6 mg/dL (8.7-10.3); Carbon Dioxide 23.4 mmol/L (21.6-31.8); Chol/HDL Ratio 2.49; Globulin 1.9 g/dL (1.6-3.3); LDL Cholesterol,Calculated 89.6 mg/dL (0.0-131.0); Non-African American GFR(CKD) 70.5 (60.0-200.0); Potassium 4.3 mmol/L (3.5-5.5); Total Bilirubin 0.8 mg/dL (0.3-1.2); Total Protein 6.2 g/dL (6.2-8.2); VLDL Calculation 17.4 mg/dL (5.00-40.00)
== END | disposition home or self-care (01) ==
LOC: LABWHC1 12:43
PROVIDERS: ATTEND Nurse Practitioner Adult Health
DX: I10 Essential (primary) hypertension (principal); E78.2 Mixed hyperlipidemia
CPT/HCPCS: 36415; 80053; 80061

== ENCOUNTER → 2020-11-21 | Outpatient (CLI) | payer MEDICARE, OTHER ==
[2020-11-21 13:16] LABS: Basophils # (A) 0.1 k/uL (0-0.2); Basophils % (A) 1 %; Eosinophils # (A) 0.2 k/uL (0-0.7); Eosinophils % (A) 3 %; HGB 16.1 gm/dL (11.4-16.0); Lymphocytes % (A) 34 %; MCH 30.7 pg (25.0-35.0); MCHC 33.5 g/dL (31.0-37.0); MCV 91.5 fL (80.0-100.0); Monocytes # (A) 0.4 k/uL (0-1.0); Monocytes % (A) 7 %; Neutrophils # (A) 3.1 k/uL (1.3-7.7); Neutrophils % (A) 53 %; Platelet Count 201 k/uL (150-450); RBC 5.25 m/uL (3.80-5.40); RDW 12.6 % (11.5-15.5); WBC 5.7 k/uL (3.8-10.6)
[2020-11-21 13:44] LABS: Total Eosinophil Count 172 #EOS/uL (150-300)
[2020-11-21 22:55] LABS: African American GFR (CKD) 93.5 (60.0-200.0); Albumin 4.3 g/dL (3.80-4.90); Albumin/Globulin Ratio 2.15 (1.60-3.17); Anion Gap 9.5 mmol/L (4.00-12.00); Calcium 9.9 mg/dL (8.7-10.3); Carbon Dioxide 23.5 mmol/L (21.6-31.8); Non-African American GFR(CKD) 80.7 (60.0-200.0); Potassium 4.2 mmol/L (3.5-5.5); Total Bilirubin 0.7 mg/dL (0.2-1.2); Total Protein 6.3 g/dL (6.2-8.2)
[2020-11-22 01:16] LABS: Egg White IgE <0.10 kU/L
[2020-11-22 01:17] LABS: Codfish IgE <0.10 kU/L
[2020-11-22 01:18] LABS: Peanut IgE <0.10 kU/L; Soybean IgE <0.10 kU/L
[2020-11-22 01:19] LABS: Clam IgE <0.10 kU/L; Shrimp IgE <0.10 kU/L
[2020-11-22 01:20] LABS: Immunoglobulin E 6.77 IU/mL (0.00-114.00); Scallop IgE <0.10 kU/L; Walnut IgE (Food) <0.10 kU/L
[2020-11-22 01:23] LABS: Cat Epith & Dander IgE <0.10 kU/L; Dermato. farinae IgE <0.10 kU/L
[2020-11-22 01:24] LABS: Cladosporian herbarum IgE <0.10 kU/L; Cockroach IgE <0.10 kU/L; Dog Dander IgE <0.10 kU/L
[2020-11-22 01:25] LABS: Aspergillus fumagatus IgE <0.10 kU/L
[2020-11-22 01:26] LABS: Alternaria alternata IgE <0.10 kU/L; Birch IgE <0.10 kU/L; Maple (Box Elder) IgE 0.12 kU/L; Oak IgE <0.10 kU/L
[2020-11-22 01:27] LABS: Elm IgE <0.10 kU/L; Ragweed,Common IgE <0.10 kU/L
[2020-11-22 06:10] LABS: Red Top (Bentgrass) IgE <0.10 kU/L
[2020-11-22 06:11] LABS: Immunoglobulin E 7.28 IU/mL (0.00-114.00)
== END | disposition home or self-care (01) ==
LOC: LABWHC1 12:23
PROVIDERS: ATTEND Internal Medicine Critical Care Medicine
DX: J45.909 Unspecified asthma, uncomplicated (principal); R06.01 Orthopnea; R09.81 Nasal congestion
CPT/HCPCS: 36415; 80053; 82785; 83880; 85008; 85025; 86003

== ENCOUNTER → 2021-01-09 | Outpatient (CLI) | payer MEDICARE, OTHER ==
[~2021-01-09] MED LIST changes: -ALPRAZolam 0.25 MG TAB PO PRN; -ALPRAZolam 0.5 MG TAB PO PRN; -ASPIRIN 325 MG TAB PO STA; -NITROGLYCERIN SL TABS 0.4 MG TAB SUBLINGUAL PRN; +REGADENOSON 0.4 MG/5 ML SYRINGE IV PRN; -SODIUM CHLORIDE 0.9% 1,000 ML in EMPTY BAG 1 BAG IV ONE
--- NOTE | 2021-01-09 11:31 | NM ---
EXAMINATION TYPE: NM stress lexiscan cardiolite DATE OF EXAM: 01/09/2021 COMPARISON: NONE HISTORY: Chest pain TECHNIQUE: After the intravenous administration of 9.7 mCi Tc 99m Sestamibi - Cardiolite resting SPE CT images acquired 45 minutes post injection. The patient received 0.4mg Lexiscan, 25.1 mCi Tc 99m Sestamibi - Stress images obtained [address] injection FINDINGS: Review of stress and rest SPECT images demonstrates reversible perfusion defect involving the apical anterior region a small area of fixed defect involving the cardiac apex. Gated analysis shows normal wall motion with an estimated left ventricular ejection fraction of 57 %. IMPRESSION: reversible perfusion defect involving the apical anterior region a small area of fixed defect involvi ng the cardiac apex.
--- NOTE | 2021-01-09 16:19 | EST ---
EXERCISE STRESS DATE OF SERVICE: 01/09/2021. INDICATION: Chest pain. AGE: 60 SEX: F HT: 5'7" WT: 165 lbs. PROTOCOL: Lexiscan STAGE: NA DURATION OF EXERCISE: NA HEART RATE REST: 53 BLOOD PRESSURE REST: 138/65 MAXIMUM HEART RATE ACHIEVED: 82 MAXIMUM BLOOD PRESSURE: 138/65 85% MPHR: 137 100% MPHR: 161 METS: NA INDICATIONS: STRESS DATA: Heart rate is 53, pressure is 138/65 mmHg. Baseline EKG showed sinus mechanism. The patient was given 0.4 mg of Lexiscan over 15 seconds per protocol. Max heart rate was 71 beats per minute. Maximum pressure was 135/67 mmHg. Clinically, the patient did not have any symptoms and the EKG did not show any significant ST or T-wave abnormalities concerning for ischemia. CONCLUSION: 1. Nondiagnostic electrocardiogram stress testing in response to Lexiscan. 2. Please follow up on the Cardiolite portion on a separate report from Radiology Department. MMODL / IJN: [id number] /
== END | disposition home or self-care (01) ==
LOC: RADNMMAIN 08:15
PROVIDERS: ATTEND Family Medicine
DX: R94.39 Abnormal result of other cardiovascular function study (principal)
CPT/HCPCS: 93017; 78452; A9500; J2785

== ENCOUNTER → 2021-01-19 | Outpatient (CLI) | payer MEDICARE, OTHER ==
--- NOTE | 2021-01-23 08:28 | MM ---
Reason for exam: screening (asymptomatic). Last mammogram was performed 1 year and 6 months ago. History: Patient is postmenopausal and had first child at age 36. Silicone gel implants in both breasts, 2016. Saline implants in both breasts, 2001. Cyst aspiration of both breasts. Cyst aspiration of the left breast. Took estrogen for 3 years. Physical Findings: A clinical breast exam by your physician is recommended on an annual basis and results should be correlated with mammographic findings. MG Screening Mammo Implant/CAD Bilateral CC, MLO, and ID view(s) were taken. Prior study comparison: July 30, 2019, bilateral MG screening mammo implant/CAD. May 11, 2018, bilateral MG 3d screen mammo imp/cad. There are scattered fibroglandular densities. There is no discrete abnormality. Bilateral breast prothesis. No significant changes when compared with prior studies. ASSESSMENT: Incomplete: need additional imaging evaluation, BI-RAD 0 RECOMMENDATION: Ultrasound of the left breast. [facility] will attempt to contact patient to return for ultrasound.
== END | disposition home or self-care (01) ==
LOC: RADMAMWWP 10:32
PROVIDERS: ATTEND Family Medicine
DX: Z12.31 Encounter for screening mammogram for malignant neoplasm of breast (principal); Z78.0 Asymptomatic menopausal state
CPT/HCPCS: 77067

== ENCOUNTER → 2021-01-25 | Outpatient (CLI) | payer MEDICARE, OTHER ==
[2021-01-25 15:04] LABS: HCT 48.3 % (34.0-46.0); HGB 16.4 gm/dL (11.4-16.0); MCH 32.1 pg (25.0-35.0); MCHC 34.1 g/dL (31.0-37.0); MCV 94.2 fL (80.0-100.0); Mean Platelet Volume 8.7; Platelet Count 196 k/uL (150-450); RBC 5.12 m/uL (3.80-5.40); RDW 12.6 % (11.5-15.5)
[2021-01-25 15:07] LABS: African American GFR (CKD) >90 (>60 ml/min/1.73 sqM); Anion Gap 7 mmol/L; Blood Urea Nitrogen 19 mg/dL (7-17); Carbon Dioxide 25 mmol/L (22-30); Chloride 107 mmol/L (98-107); Non-African American GFR(CKD) 81 (>60 ml/min/1.73 sqM); Potassium 4.6 mmol/L (3.5-5.1); Sodium 139 mmol/L (137-145)
== END | disposition home or self-care (01) ==
LOC: LABPAT 14:12
PROVIDERS: ATTEND Internal Medicine Interventional Cardiology
DX: Z01.812 Encounter for preprocedural laboratory examination (principal); R07.9 Chest pain, unspecified
CPT/HCPCS: 36415; 80051; 82565; 84520; 85027

== ENCOUNTER → 2021-01-29 | Day surgery (SDC) | payer MEDICARE, OTHER ==
[2021-01-24 16:17] VITALS: BMI 26.4
[~2021-01-29] MED LIST changes: +ALPRAZolam 0.25 MG TAB PO PRN; +ALPRAZolam 0.5 MG TAB PO PRN; +ASPIRIN 325 MG TAB PO STA; +ASPIRIN 81 MG PO SCH; +HEPARIN SODIUM 1,000 UN/ML (10ML VL) IV ONE; +IOPAMIDOL-370 125ML BTL INJ ONE; +LIDOCAINE 1% INJ 10MG/ML (20 ML MDV) SQ ONE; +METOPROLOL SUCCINATE (ER) 25 MG TAB.ER.24H PO SCH; +NITROGLYCERIN SL TABS 0.4 MG TAB SUBLINGUAL PRN; +PANTOPRAZOLE 40 MG TABLET PO SCH; -REGADENOSON 0.4 MG/5 ML SYRINGE IV PRN; +RX INFO: IV CONTRAST WAS GIVEN 1 EACH MISC MISCELLANE PRN; +SODIUM CHLORIDE 0.9% 1,000 ML IV ONE; +SODIUM CHLORIDE 0.9% 1,000 ML IV SCH; +SODIUM CHLORIDE 0.9% 1,000 ML in EMPTY BAG 1 BAG IV ONE; +VERAPAMIL SYRINGE (5 MG/10 ML) INTRAARTER ONE; +fentaNYL (PF) 50 MCG/ML 2 ML AMP IV ONE
[2021-01-29 07:08] VITALS: RESP 16; TEMP 97.6
[2021-01-29] MEDS: MIDAZOLAM 2 MG/2 ML VIAL IV ONE ×2 (07:35→07:41)
--- NOTE | 2021-01-29 10:00 | CC ---
CARDIAC CATHETERIZATION REPORT Mrs Farfan is a 60-year-old female with a history of coronary artery disease, status post percutaneous revascularization in 2007, history of hypertension, hyperlipidemia, who has been complaining of episodes of chest discomfort and progressive dyspnea. She underwent myocardial perfusion imaging that was reported showing apical ischemia. In view of that, recommendation was made regarding cardiac catheterization. The procedure as well as risks and complications were discussed with the patient, who was in full understanding and agreement. 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 Using Xylocaine anesthesia and Seldinger technique, a 6-Liberian sheath was introduced into the right radial artery. Selective right and left coronary angiography was performed using 5- Liberian, 3-1/2 bend right and left Leora catheters. Multiple views were taken of the arteries, including hemiaxial views. Following that, the right Leora catheter was used to cross the aortic valve. The left ventricular end-diastolic pressure was calculated. Following that, catheter and sheath were removed. Hemostasis was obtained with deployment of a TR band. There was no immediate complication. Patient was returned to her room in stable condition. Of note, the patient received a total of 4000 units of intravenous heparin as well as intraarterial verapamil. FINDINGS: LEFT MAIN: This is a short-sized vessel bifurcating into left circumflex and left anterior descending artery. Left main coronary artery has no evidence of high- grade stenosis. LEFT ANTERIOR DESCENDING ARTERY: This is a large-sized vessel reaching toward the apex with a wrap around the apex segment giving rise to a small diagonal branch. The left anterior descending artery as well as its branches have no evidence of obstructive coronary artery disease. LEFT CIRCUMFLEX: This is a large nondominant vessel giving rise to 3 obtuse marginal branches. The second one is the largest. The left circumflex as well as its branches have no evidence of obstructive coronary artery disease. RIGHT CORONARY ARTERY: This is a large dominant vessel bifurcating distally into PDA and posterolateral segment and branches. The stented segment in the right coronary artery is patent. There is no evidence of obstructive disease. LEFT VENTRICULOGRAM: Left ventriculogram was not performed. HEMODYNAMICS: There was no gradient across the aortic valve. The left ventricular end- diastolic pressure was 10-14 mmHg. CONCLUSION: 1. no significant coronary arteries disease. 2. Patent stent in the RCA. RECOMMENDATIONS: In view of findings and anatomy, I have recommended continued medical therapy with the aggressive coronary risk modifications that have been initiated. Those findings and recommendation were discussed with the patient and her family, who are in full understanding and agreement. Duration of sedation was 18 minutes. RENA / MARIE: [id number] / MTDD
[2021-01-29 12:40] VITALS: BP 106/58; PULSE 62
== END | disposition home or self-care (01) ==
LOC: CATHCVL 06:19
PROVIDERS: ATTEND Internal Medicine Interventional Cardiology
DX: R07.89 Other chest pain (principal); Z95.5 Presence of coronary angioplasty implant and graft; I25.10 Atherosclerotic heart disease of native coronary artery without angina pectoris; I10 Essential (primary) hypertension; Z79.899 Other long term (current) drug therapy; I08.1 Rheumatic disorders of both mitral and tricuspid valves; Z79.82 Long term (current) use of aspirin; Z88.3 Allergy status to other anti-infective agents; Z88.5 Allergy status to narcotic agent; Z88.0 Allergy status to penicillin; Z88.8 Allergy status to other drugs, medicaments and biological substances; E78.2 Mixed hyperlipidemia
CPT/HCPCS: 93458; C1894; C1769; J2250; J2001; J3010; J1644; Q9967

== ENCOUNTER → 2021-02-09 | Outpatient (CLI) | payer MEDICARE, OTHER ==
--- NOTE | 2021-02-12 09:09 | USB ---
Reason for exam: additional evaluation requested from abnormal screening. History: Patient is postmenopausal and had first child at age 36. Silicone gel implants in both breasts, 2016. Saline implants in both breasts, 2001. Cyst aspiration of both breasts. Cyst aspiration of the left breast. Took estrogen for 3 years. Physical Findings: Nurse Summary: Patient complains of 3 intermittent left breast lumps with pain 12 o'clock, 1-2 o'clock, 4-5 o'clock (nurse mj). US Breast Workup LT Technologist: Karolyn Cooper Left complete breast ultrasound includes all four quadrants, the retroareolar region and axilla. Finding demonstrates no cystic or solid lesion seen. These results were verbally communicated with the patient and result sheet given to the patient on 02/09/21. ASSESSMENT: Negative, BI-RAD 1 RECOMMENDATION: Return to routine screening mammogram schedule for both breasts.
== END | disposition home or self-care (01) ==
LOC: RADUSWWP 09:33
PROVIDERS: ATTEND Family Medicine
DX: N63.25 Unspecified lump in the left breast, overlapping quadrants (principal); N63.13 Unspecified lump in the right breast, lower outer quadrant; Z78.0 Asymptomatic menopausal state

== ENCOUNTER → 2021-12-24 | Outpatient (CLI) | payer MEDICARE, OTHER ==
--- NOTE | 2021-12-24 16:45 | CTL ---
EXAMINATION TYPE: CT Low Dose Lung DATE OF EXAM ORDERED: 12/24/2021 HISTORY: Former smoker. Lung cancer screening CT DLP: [address] CTDI: 2.30 mGy Automated exposure control for dose reduction was used. SCREENING VISIT: First screening visit COMPARISON: CTA chest 08/12/2019, 05/27/2017 TECHNIQUE: Low dose computed tomography scan was performed through the chest at 1 mm thick sections a nd reconstructed images in multiple planes at 1 mm and [address] DIAGNOSTIC QUALITY: Satisfactory FINDINGS: LUNG NODULES: Stable left lower lobe 3 mm pulmonary nodule dating back to 2017 (series 4, image 254). LUNGS: COPD: Severity: Moderate Fibrosis: Severity: None Lymph nodes: None Other findings: None RIGHT PLEURAL SPACE: Effusion: None Calcification: None Thickening: None Pneumothorax: None LEFT PLEURAL SPACE: Effusion: None Calcification: None Thickening: None Pneumothorax: None HEART: Heart Size: Normal Coronary Calcification: Small Pericardial Effusion: None OTHER FINDINGS: Upper abdomen: Postcholecystectomy. Bony thorax: None Supraclavicular region: None Other: Bilateral breast prosthesis identified. IMPRESSION: Stable left lower lobe 3 mm pulmonary nodule dating back to 2016. No new or enlarging pulmonary nodul es. CT LUNG RAD AND CT CHEST RECOMMENDATION: Lung-Rad 2 Benign Appearance or Behavior: Continue annual sc reening with LDCT in 12 months.
== END | disposition home or self-care (01) ==
LOC: RADCTMAIN 15:55
PROVIDERS: ATTEND Internal Medicine Critical Care Medicine
DX: R91.8 Other nonspecific abnormal finding of lung field (principal); Z87.891 Personal history of nicotine dependence
CPT/HCPCS: 71271

== ENCOUNTER 2022-10-11 11:24 | Inpatient (IN) | payer MEDICARE, OTHER ==
[2022-10-11] MEDS ORDERED: IPRATROPIUM-ALBUTEROL 3 ML NEB INHALATION STA ×2 (11:47→13:12)
[2022-10-11 12:02] LABS: Basophils % (A) 0 %; Eosinophils # (A) 0.2 k/uL (0-0.7); Eosinophils % (A) 2 %; HCT 46.5 % (34.0-46.0); Lymphocytes # (A) 1.4 k/uL (1.0-4.8); Lymphocytes % (A) 15 %; MCH 30.7 pg (25.0-35.0); MCHC 34.4 g/dL (31.0-37.0); MCV 89.3 fL (80.0-100.0); Monocytes # (A) 0.6 k/uL (0-1.0); Monocytes % (A) 7 %; Neutrophils # (A) 6.5 k/uL (1.3-7.7); Neutrophils % (A) 73 %; Platelet Count 233 k/uL (150-450); RBC 5.21 m/uL (3.80-5.40); RDW 12.6 % (11.5-15.5); WBC 8.8 k/uL (3.8-10.6)
--- NOTE | 2022-10-11 12:15 | XR ---
EXAMINATION TYPE: XR chest 2V DATE OF EXAM: 10/11/2022 COMPARISON: Chest x-ray August 12, 2019. Chest low-dose lung CT December 24, 2021 HISTORY: Shortness of breath TECHNIQUE: Frontal and lateral views of the chest are obtained. FINDINGS: Background chronic emphysematous change redemonstrated with new left upper to midlung massl diego consolidation measuring approximately 5.5 cm long axis on frontal view less well-seen on lateral view. No pleural effusion or pneumothorax seen bilaterally. Right lung remains clear. Cardiac silhoue tte size stable and within normal limits. Cholecystectomy clips are redemonstrated. Osseous structure s are intact. IMPRESSION: Chronic emphysematous change with new left upper lobe masslike consolidation favoring fo tonya pneumonia. Follow-up study after treatment to rule out neoplasm advised.
[2022-10-11 12:26] LABS: ALT 31 U/L (4-34); AST 30 U/L (14-36); African American GFR (CKD) >90 (>60 ml/min/1.73 sqM); Albumin 3.8 g/dL (3.5-5.0); Alkaline Phosphatase 83 U/L (38-126); Anion Gap 11 mmol/L; Blood Urea Nitrogen 16 mg/dL (7-17); Calcium 8.9 mg/dL (8.4-10.2); Carbon Dioxide 23 mmol/L (22-30); Chloride 105 mmol/L (98-107); Glucose 104 mg/dL (74-99); Non-African American GFR(CKD) 79 (>60 ml/min/1.73 sqM); Potassium 4.3 mmol/L (3.5-5.1); Sodium 139 mmol/L (137-145); Total Bilirubin 0.8 mg/dL (0.2-1.3); Total Protein 6.8 g/dL (6.3-8.2)
--- NOTE | 2022-10-11 15:14 | ED ---
General Adult HPI - General Chief complaint: Shortness of Breath Stated complaint: SOB Time Seen by Provider: 10/11/22 11:38 Source: patient, RN notes reviewed Mode of arrival: wheelchair Limitations: no limitations - History of Present Illness Initial comments: 62-year-old female with a past medical history significant for COPD presents to the emergency department with a chief complaint of cough. Patient reports worsening cough that is nonproductive the last 4 days. She is also complaining of accompanied symptoms of congestion, fever, generalized fatigue. She denies any recent known sick contacts. She is up-to-date on her HALO2CLOUD ns. She denies any chest pain, palpitations, abdominal pain, nausea, vomiting, diarrhea. patient is a nonsmoker. Patient reports that she is supposed be wearing oxygen at home however she states "I want to start wearing it because it never get off of it. " - Related Data Home Medications Medication Instructions Recorded Confirmed Aspirin 81 mg PO DAILY 04/18/14 10/11/22 Ipratropium-Albuterol Nebulize 3 ml INHALATION RT-QID 04/18/14 10/11/22 [Duoneb 0.5 mg-3 mg/3 ml Soln] Metoprolol Succinate (ER) [Toprol 25 mg PO DAILY 04/18/14 10/11/22 XL] Nitroglycerin Sl Tabs [Nitrostat] 0.4 mg SL Q5M PRN 04/18/14 10/11/22 Ubidecarenone [Coenzyme Q10] 100 mg PO DAILY 04/18/14 10/11/22 Cyclobenzaprine [Flexeril] 10 mg PO TID PRN 04/12/15 10/11/22 Multivitamins, Thera [Multivitamin 1 tab PO DAILY 03/19/17 10/11/22 (formulary)] Ipratropium/Albuterol Sulfate 1 puff INHALATION RT-QID PRN 05/28/17 10/11/22 [Combivent Respimat Inhaler] Albuterol Sulfate [Proair Hfa] 1 - 2 puff INHALATION RT-Q6H PRN 01/24/21 10/11/22 Fluticasone Propion/Salmeterol 2 puff INHALATION RT-BID 01/24/21 10/11/22 [Advair Hfa 230-21 Mcg Inhaler] Omeprazole 40 mg PO DAILY 01/24/21 10/11/22 Albuterol Nebulized [Ventolin 2.5 mg INHALATION RT-QID PRN 10/11/22 10/11/22 Nebulized] Ascorbic Acid [Vitamin C] 1,000 mg PO DAILY 10/11/22 10/11/22 Cholecalciferol [Vitamin D3 (125 125 mcg PO DAILY 10/11/22 10/11/22 Mcg = 5000 Iu)] Furosemide [Lasix] 20 mg PO DAILY PRN 10/11/22 10/11/22 Magnesium Oxide [Mag-Ox] 400 mg PO HS 10/11/22 10/11/22 Melatonin 10 mg PO HS PRN 10/11/22 10/11/22 Allergies Allergy/AdvReac Type Severity Reaction Status Date / Time amoxicillin [Amoxicillin] Allergy Nausea & Verified 10/11/22 15:39 Vomiting amoxicillin trihydrate Allergy Rapid Verified 10/11/22 15:39 [From Augmentin] Heart Rate megestrol acetate Allergy adrenal Verified 10/11/22 15:39 [From Megace] insufficiency potassium clavulanate Allergy Rapid Verified 10/11/22 15:39 [From Augmentin] Heart Rate terconazole [From Terazol 3] Allergy Rash/Hives Verified 10/11/22 15:39 codeine AdvReac Unknown Nausea & Verified 10/11/22 15:39 Vomiting hydrocodone [From Vicodin] AdvReac Unknown Nausea & Verified 10/11/22 15:39 Vomiting nitrofurantoin AdvReac Unknown Verified 10/11/22 15:39 nitrofurantoin AdvReac Nausea & Verified 10/11/22 15:39 macrocrystalline Vomiting [From Macrobid] Uddvttd-OHI-BoO Reductase AdvReac muscle Verified 10/11/22 15:39 Inhibitor cramps [Pkqmbqf-Qsh-Qyd Reductase Inhibitor] sumatriptan [From Imitrex] AdvReac Rapid Verified 10/11/22 15:39 Heart Rate sumatriptan succinate AdvReac Rapid Verified 10/11/22 15:39 [From Imitrex] Heart Rate pnuemonia injection Allergy Anaphylaxis Uncoded 01/24/21 15:58 Review of Systems ROS Statement: Those systems with pertinent positive or pertinent negative responses have been documented in the HPI. ROS Other: All systems not noted in ROS Statement are negative. Past Medical History Past Medical History: COPD, Fibromyalgia, GERD/Reflux, Hypertension, Myocardial Infarction ([place]), Musculoskeletal Disorder, Osteoarthritis (OA) Additional Past Medical History / Comment(s): BUSTER daughter, Raynauds disease, past hx. of adrenal insufficiency, Herniated discs , back pain, migraines, IBS.rheumatoid factor positive Last Myocardial Infarction Date:: 07/2006 History of Any Multi-Drug Resistant Organisms: None Reported Past Surgical History: Appendectomy, Breast Surgery, Section, Cholecystectomy, Heart Catheterization With Stent, Hernia Repair, Tonsillectomy Additional Past Surgical History / Comment(s): cardiac stent x2, abdominal laparoscopy x5, abd. surgery for adhesions, breast augmentation, blep haroplasty, umbilical hernia. Past Anesthesia/Blood Transfusion Reactions: Previous Problems w/ Anesthesia, Motion Sickness Additional Past Anesthesia/Blood Transfusion Reaction / Comment(s): slow to wake up @times, MIGRAINES. Date of Last Stent Placement:: 2006 Past Psychological History: Anxiety Smoking Status: Former smoker - Past Family History Mother Additional Family Medical History / Comment(s): EMPHYSEMA, possible lung cancer General Exam Limitations: no limitations General appearance: alert, in no apparent distress Head exam: Present: atraumatic, normocephalic, normal inspection Eye exam: Present: normal appearance, PERRL, EOMI. Absent: scleral icterus, conjunctival injection, periorbital swelling ENT exam: Present: normal exam, mucous membranes moist Neck exam: Present: normal inspection. Absent: tenderness, meningismus, lymphadenopathy Respiratory exam: Present: normal lung sounds bilaterally, wheezes ( Expiratory.). Absent: respiratory distress, rales, rhonchi, stridor Cardiovascular Exam: Present: regular rate, normal rhythm, normal heart sounds. Absent: systolic murmur, diastolic murmur, rubs, gallop, clicks GI/Abdominal exam: Present: soft, normal bowel sounds. Absent: distended, tenderness, guarding, rebound, rigid Extremities exam: Present: normal inspection, full ROM, normal capillary refill. Absent: tenderness, pedal edema, joint swelling, calf tenderness Back exam: Present: normal inspection Neurological exam: Present: alert, oriented X3, CN II-XII intact Psychiatric exam: Present: normal affect, normal mood Skin exam: Present: warm, dry, intact, normal color. Absent: rash Course Vital Signs 10/11/22 10/11/22 10/11/22 11:30 12:20 12:35 Temperature 98 F Pulse Rate 79 75 76 Respiratory 24 Rate Blood Pressure 117/68 O2 Sat by Pulse 93 L Oximetry 10/11/22 10/11/22 10/11/22 13:58 14:00 14:23 Temperature Pulse Rate 88 88 92 Respiratory 22 20 Rate Blood Pressure O2 Sat by Pulse 84 L 92 L Oximetry 10/11/22 10/11/22 10/11/22 14:37 14:58 15:01 Temperature 98.6 F Pulse Rate 94 95 92 Respiratory 20 20 Rate Blood Pressure O2 Sat by Pulse 88 L 92 L Oximetry 10/11/22 10/11/22 17:30 19:25 Temperature Pulse Rate 91 81 Respiratory 20 18 Rate Blood Pressure 116/56 121/51 O2 Sat by Pulse 94 L 95 Oximetry - Reevaluation(s) Reevaluation #1: 10/11/22 15:[address] Aguero from [facility] [place] [facility] who agrees and accepts the patient for admission Medical Decision Making - Medical Decision Making Was pt. sent in by a medical professional or institution (, PA, CONTRACTING OFFICER, urgent care, hospital, or care home...) When possible be specific @ -[No] Did you speak to anyone other than the patient for history (EMS, parent, family, police, friend...)? What history was obtained from this source @ -[No] Did you review nursing and triage notes (agree or disagree)? Why? @ -[I reviewed and agree with nursing and triage notes] Were old charts reviewed (outside hosp., previous admission, EMS record, old EKG , old radiological studies, urgent care reports/EKG's, care home records)? Report findings @ -[No old charts were reviewed] Differential Diagnosis (chest pain, altered mental status, abdominal pain women, abdominal pain men, vaginal bleeding, weakness, fever, dyspnea, syncope, headache, dizziness, GI bleed, back pain, seizure, CVA, palpatations, mental hea lth, musculoskeletal)? @ -[not applicable] EKG interpreted by me (3pts min.). @ -[As above] X-rays interpreted by me (1pt min.). @ -[None done] CT interpreted by me (1pt min.). @ -[None done] U/S interpreted by me (1pt. min.). @ -[None done] What testing was considered but not performed or refused? (CT, X-rays, U/S, labs)? Why? @ -[None] What meds were considered but not given or refused? Why? @ -[None] Did you discuss the management of the patient with other professionals (professionals i.e. Dr., PA, CONTRACTING OFFICER, lab, RT, psych nurse, social service director, youth services librarian, teacher, surveillance dual rate officer, case advocate)? Give summary @ -[No] Was smoking cessation discussed for >3mins.? @ -[No] Was critical care preformed (if so, how long)? @ -[No] Were there social determinants of health that impacted care today? How? (Homelessness, low income, unemployed, alcoholism, drug addiction, transportation, low edu. Level, literacy, decrease access to med. care, [facility], rehab)? @ -[No] Was there de-escalation of care discussed even if they declined (Discuss DNR or withdrawal of care, Hospice)? DNR status @ -[No] What co-morbidities impacted this encounter? (DM, HTN, Smoking, COPD, CAD, Cancer, CVA, ARF, Chemo, Hep., AIDS, mental health diagnosis, sleep apnea, morbid obesity)? @ -[None] Was patient admitted / discharged? Hospital course, mention meds given and route, prescriptions, significant lab abnormalities, going to OR and other pertinent info. @ - Admission. This is a 62-year-old female who presents the emergency department with cough. Patient had a thorough history and physical exam performed on the ED. Physical exam is essentially unremarkable. Heart rate regular rate and rhythm lungs clear to auscultation bilaterally abdomen soft nontender. Patient had lab work and imaging which reveals: Labs remarkable for WBCs 8.8 hemoglobin 16.0 chemistry unremarkable BUNs 60 creatinine 0.81 Covid flu and RSV negative X-ray reveals chronic emphysematous changes with new left upper lobe mass like consolidation fever and focal pneumonia however it may be a neoplasm follow-up after treatment is advised I discussed the results in detail with the patient who verbalized understanding and all questions were addressed. She was given 1 L of IV fluids, with symptomatic relief on the ED. case discussed with sound who agrees with the patient for admission. Case discussed with Dr. Haider P who agrees with plan of care Undiagnosed new problem with uncertain prognosis? @ -[No] Drug Therapy requiring intensive monitoring for toxicity (Heparin, Nitro, Insulin, Cardizem)? @ -[No] Were any procedures done? @ -[No] Diagnosis/symptom? @ -Shortness of breath - cough Acute, or Chronic, or Acute on Chronic? @ -acute Uncomplicated (without systemic symptoms) or Complicated (systemic symptoms)? @ -uncomplicated Side effects of treatment? @ -[No] Exacerbation, Progression, or Severe Exacerbation? @ -[No] Poses a threat to life or bodily function? How? (Chest pain, [place], [place], pneumonia, PE, COPD, DKA, ARF, appy, cholecystitis, CVA, Diverticulitis, Homicidal, Lakisha cidal, threat to staff... and all critical care pts) @ -low likelihood - Lab Data Result diagrams: 10/11/22 11:53 10/11/22 11:53 Lab Results 10/11/22 10/11/22 10/11/22 Range/Units 11:53 11:53 11:53 WBC 8.8 (3.8-10.6) k/uL RBC 5.21 (3.80-5.40) m/uL Hgb 16.0 (11.4-16.0) gm/dL Hct 46.5 H (34.0-46.0) % MCV 89.3 (80.0-100.0) fL MCH 30.7 (25.0-35.0) pg MCHC 34.4 (31.0-37.0) g/dL RDW 12.6 (11.5-15.5) % Plt Count 233 (150-450) k/uL MPV 8.0 Neutrophils % 73 % Lymphocytes % 15 % Monocytes % 7 % Eosinophils % 2 % Basophils % 0 % Neutrophils # 6.5 (1.3-7.7) k/uL Lymphocytes # 1.4 (1.0-4.8) k/uL Monocytes # 0.6 (0-1.0) k/uL Eosinophils # 0.2 (0-0.7) k/uL Basophils # 0.0 (0-0.2) k/uL Sodium 139 (137-145) mmol/L Potassium 4.3 (3.5-5.1) mmol/L Chloride 105 (98-107) mmol/L Carbon Dioxide 23 (22-30) mmol/L Anion Gap 11 mmol/L BUN 16 (7-17) mg/dL Creatinine 0.81 (0.52-1.04) mg/dL Est GFR (CKD-EPI)AfAm >90 (>60 ml/min/1.73 sqM) Est GFR (CKD-EPI)NonAf 79 (>60 ml/min/1.73 sqM) Glucose 104 H (74-99) mg/dL Calcium 8.9 (8.4-10.2) mg/dL Total Bilirubin 0.8 (0.2-1.3) mg/dL AST 30 (14-36) U/L ALT 31 (4-34) U/L Alkaline Phosphatase 83 (38-126) U/L Troponin I <0.012 (0.000-0.034) ng/mL Total Protein 6.8 (6.3-8.2) g/dL Albumin 3.8 (3.5-5.0) g/dL Influenza Type A (PCR) (Not Detectd) Influenza Type B (PCR) (Not Detectd) RSV (PCR) (Not Detectd) SARS-CoV-2 (PCR) (Not Detectd) 10/11/22 Range/Units 12:56 WBC (3.8-10.6) k/uL RBC (3.80-5.40) m/uL Hgb (11.4-16.0) gm/dL Hct (34.0-46.0) % MCV (80.0-100.0) fL MCH (25.0-35.0) pg MCHC (31.0-37.0) g/dL RDW (11.5-15.5) % Plt Count (150-450) k/uL MPV Neutrophils % % Lymphocytes % % Monocytes % % Eosinophils % % Basophils % % Neutrophils # (1.3-7.7) k/uL Lymphocytes # (1.0-4.8) k/uL Monocytes # (0-1.0) k/uL Eosinophils # (0-0.7) k/uL Basophils # (0-0.2) k/uL Sodium (137-145) mmol/L Potassium (3.5-5.1) mmol/L Chloride (98-107) mmol/L Carbon Dioxide (22-30) mmol/L Anion Gap mmol/L BUN (7-17) mg/dL Creatinine (0.52-1.04) mg/dL Est GFR (CKD-EPI)AfAm (>60 ml/min/1.73 sqM) Est GFR (CKD-EPI)NonAf (>60 ml/min/1.73 sqM) Glucose (74-99) mg/dL Calcium (8.4-10.2) mg/dL Total Bilirubin (0.2-1.3) mg/dL AST (14-36) U/L ALT (4-34) U/L Alkaline Phosphatase (38-126) U/L Troponin I (0.000-0.034) ng/mL Total Protein (6.3-8.2) g/dL Albumin (3.5-5.0) g/dL Influenza Type A (PCR) Not Detected (Not Detectd) Influenza Type B (PCR) Not Detected (Not Detectd) RSV (PCR) Not Detected (Not Detectd) SARS-CoV-2 (PCR) Not Detected (Not Detectd) Disposition Clinical Impression: Community acquired pneumonia, Cough, Hypoxia Disposition: ADMITTED IP TO THIS HOSP Condition: Fair Is patient prescribed a controlled substance at d/c from ED?: No Time of Disposition: 15:19
[2022-10-11] MEDS ORDERED: ACETAMINOPHEN TAB 325 MG TAB PO PRN (15:20)
[2022-10-11] MEDS ORDERED: NALOXONE 0.4 MG/ML 1 ML VIAL IV PRN (15:20)
[2022-10-11] MEDS ORDERED: AZITHROMYCIN 500 MG in SODIUM CHLORIDE 0.9% 250 ML IVPB STA (15:24)
[2022-10-11] MEDS ORDERED: PNEUMONIA PROTOCOL UTILIZED 1 EACH MISC PO PRN (15:24)
[2022-10-11] MEDS ORDERED: SODIUM CHLORIDE 0.9% 1,000 ML IV SCH (15:30)
[2022-10-11] MEDS ORDERED: ALBUTEROL NEBULIZED 2.5 MG/3 ML INHALATION PRN ×2 (18:14→20:32)
--- NOTE | 2022-10-11 18:18 | P.HPIM ---
History of Present Illness H&P Date: 10/11/22 Patient is a 62-year-old female with PMH of COPD, CAD, hypertension that presents the ED for fever and shortness of breath that has been ongoing since Friday. Patient reports it measured fever of 102 Fahrenheit. She reports progressive weakness and worsening shortness of breath which prompted her to come to the ED. She reports a decreased appetite. She is noncompliant with her home oxygen of 2 L. She denies any headache, lower extremity edema, nausea or vomiting, cough, chest pain, palpitations, changes in urination or bowel habits. No changes in weight. She denies any dizziness, numbness/weakness/tingling of extremities. In the ED, she was tachycardic with heart rate of 95 and O2 sa turation of 88% on room air. Vital signs are otherwise stable. CBC showed hematocrit of 46.5. CMP showed glucose 104. Troponin was less than 0.012. Influenza, RSV and COVID-19 negative. Chest x-ray showed left upper lobe consolidation. Patient is admitted for treatment of pneumonia. Pertinent positives and negatives as discussed in HPI, a complete review of systems was performed and all other systems are negative. General: non toxic, no distress, appears at stated age Derm: warm, dry Head: atraumatic, normocephalic, symmetric Eyes: EOMI, no lid lag, anicteric sclera Mouth: no lip lesion, mucus membranes moist Cardiovascular: S1S2 reg, no murmur Lungs: Decreased breath sounds bilateral, no rhonchi, no rales , no accessory muscle use Abdominal: soft, nontender to palpation, no guarding, no appreciable organomegaly Ext: no gross muscle atrophy, no edema, no contractures Neuro: no focal neuro deficits Psych: Alert, oriented, appropriate affect Acute hypoxic respiratory failure Community-acquired pneumonia Chronic conditions: COPD, CAD, hypertension Based on my assessment of this patient, this patient meets a high complexity level of care. Patient has an acute diagnosis of acute hypoxic respiratory failure secondary to community core pneumonia that poses a threat to life or bodily function. Chest x-ray shows left-sided infiltrate. She is currently on 2 L nasal cannula to maintain O2 saturation greater than 92%. Start Rocephin 2 g IV daily and azithromycin 500 mg by mouth daily for treatment of community acquired pneumonia. Plans to repeat chest x-ray tomorrow morning. Collect sputum culture, Legionella antigen and blood culture. Pulmonology consulted for fu rther management of this patient. COPD - Not in acute exacerbation. Albuterol neb PRN for SOB/wheezing. Likely need continuous oxygen on discharge. CAD - History of stents. ASA 81 mg PO QD. Metoprolol as below. States intolerant to statins. Hypertension - Metoprolol 25 mg PO QD. GERD - Prilosec 40 mg PO QD. Patient names his decision-maker if he can't make decisions for himself. Patient would like to be full code. Lovenox SQ for DVT prophylaxis. I have reviewed the following product marketing consultant notes: None. I have reviewed the results of the following tests: CBC showed hematocrit of 46.5. CMP showed glucose 104. Troponin was less than 0.012. Influenza, RSV and COVID-19 negative. I have ordered the following tests: Sputum culture, Legionella antigen and blood culture. I have discussed the care of this patient with the following independent historian: None. I have independently interpreted the following test below: Chest x-ray showed left upper lobe consolidation. I have discussed the management of this patient with the following physician: The case was extensively discussed with the ED physician. Past Medical History Past Medical History: COPD, Fibromyalgia, GERD/Reflux, Hypertension, Myocardial Infarction ([place]), Musculoskeletal Disorder, Osteoarthritis (OA) Additional Past Medical History / Comment(s): BUSTER daughter, Raynauds disease, past hx. of adrenal insufficiency, Herniated discs , back pain, migraines, IBS.rheumatoid factor positive Last Myocardial Infarction Date:: 07/2006 History of Any Multi-Drug Resistant Organisms: None Reported Past Surgical History: Appendectomy, Breast Surgery, Section, Cholecystectomy, Heart Catheterization With Stent, Hernia Repair, Tonsillectomy Additional Past Surgical History / Comment(s): cardiac stent x2, abdominal laparoscopy x5, abd. surgery for adhesions, breast augmentation, blepharoplasty, umbilical hernia. Past Anesthesia/Blood Transfusion Reactions: Previous Problems w/ Anesthesia, Motion Sickness Additional Past Anesthesia/Blood Transfusion Reaction / Comment(s): slow to wake up @times, MIGRAINES. Date of Last Stent Placement:: 2006 Past Psychological History: Anxiety Smoking Status: Former smoker - Past Family History Mother Additional Family Medical History / Comment(s): EMPHYSEMA, possible lung cancer Medications and Allergies Home Medications Medication Instructions Recorded Confirmed Type Aspirin 81 mg PO DAILY 04/18/14 10/11/22 History Ipratropium-Albuterol Nebulize 3 ml INHALATION RT-QID 04/18/14 10/11/22 History [Duoneb 0.5 mg-3 mg/3 ml Soln] Metoprolol Succinate (ER) [Toprol 25 mg PO DAILY 04/18/14 10/11/22 History XL] Nitroglycerin Sl Tabs [Nitrostat] 0.4 mg SL Q5M PRN 04/18/14 10/11/22 History Ubidecarenone [Coenzyme Q10] 100 mg PO DAILY 04/18/14 10/11/22 History Cyclobenzaprine [Flexeril] 10 mg PO TID PRN 04/12/15 10/11/22 History Multivitamins, Thera [Multivitamin 1 tab PO DAILY 03/19/17 10/11/22 History (formulary)] Ipratropium/Albuterol Sulfate 1 puff INHALATION RT-QID PRN 05/28/17 10/11/22 History [Combivent Respimat Inhaler] Albuterol Sulfate [Proair Hfa] 1 - 2 puff INHALATION RT-Q6H PRN 01/24/21 10/11/22 History Fluticasone Propion/Salmeterol 2 puff INHALATION RT-BID 01/24/21 10/11/22 History [Advair Hfa 230-21 Mcg Inhaler] Omeprazole 40 mg PO DAILY 01/24/21 10/11/22 History Albuterol Nebulized [Ventolin 2.5 mg INHALATION RT-QID PRN 10/11/22 10/11/22 History Nebulized] Ascorbic Acid [Vitamin C] 1,000 mg PO DAILY 10/11/22 10/11/22 History Cholecalciferol [Vitamin D3 (125 125 mcg PO DAILY 10/11/22 10/11/22 History Mcg = 5000 Iu)] Furosemide [Lasix] 20 mg PO DAILY PRN 10/11/22 10/11/22 History Magnesium Oxide [Mag-Ox] 400 mg PO HS 10/11/22 10/11/22 History Melatonin 10 mg PO HS PRN 10/11/22 10/11/22 History Allergies Allergy/AdvReac Type Severity Reaction Status Date / Time amoxicillin [Amoxicillin] Allergy Nausea & Verified 10/11/22 15:39 Vomiting amoxicillin trihydrate Allergy Rapid Verified 10/11/22 15:39 [From Augmentin] Heart Rate megestrol acetate Allergy adrenal Verified 10/11/22 15:39 [From Megace] insufficiency potassium clavulanate Allergy Rapid Verified 10/11/22 15:39 [From Augmentin] Heart Rate terconazole [From Terazol 3] Allergy Rash/Hives Verified 10/11/22 15:39 codeine AdvReac Unknown Nausea & Verified 10/11/22 15:39 Vomiting hydrocodone [From Vicodin] AdvReac Unknown Nausea & Verified 10/11/22 15:39 Vomiting nitrofurantoin AdvReac Unknown Verified 10/11/22 15:39 nitrofurantoin AdvReac Nausea & Verified 10/11/22 15:39 macrocrystalline Vomiting [From Macrobid] Reptder-NZZ-YfK Reductase AdvReac muscle Verified 10/11/22 15:39 Inhibitor cramps [Yddutuc-Wqs-Icw Reductase Inhibitor] sumatriptan [From Imitrex] AdvReac Rapid Verified 10/11/22 15:39 Heart Rate sumatriptan succinate AdvReac Rapid Verified 10/11/22 15:39 [From Imitrex] Heart Rate pnuemonia injection Allergy Anaphylaxis Uncoded 01/24/21 15:58 Physical Exam Vitals: Vital Signs Temp Pulse Resp BP Pulse Ox 10/11/22 17:30 91 20 116/56 94 L 10/11/22 15:01 98.6 F 92 20 92 L 10/11/22 14:58 95 20 88 L 10/11/22 14:37 94 10/11/22 14:23 92 10/11/22 14:00 88 20 92 L 10/11/22 13:58 88 22 84 L 10/11/22 12:35 76 10/11/22 12:20 75 10/11/22 11:30 98 F 79 24 117/68 93 L Intake and Output 10/11/22 10/11/22 10/11/22 06:59 14:59 22:59 Other: Weight 81.647 kg Results CBC & Chem 7: 10/11/22 11:53 10/11/22 11:53 Labs: Abnormal Lab Results - Last 24 Hours (Table) 10/11/22 10/11/22 Range/Units 11:53 11:53 Hct 46.5 H (34.0-46.0) % Glucose 104 H (74-99) mg/dL
[2022-10-11] MEDS: METOPROLOL SUCCINATE (ER) 25 MG TAB.ER.24H PO SCH (20:13)
[2022-10-11] MEDS: ASPIRIN 81 MG PO SCH (20:14)
--- NOTE | 2022-10-12 07:58 | XR ---
EXAMINATION TYPE: XR chest 2V DATE OF EXAM: 10/12/2022 COMPARISON: 10/03/2022 HISTORY: Pneumonia TECHNIQUE: Frontal and lateral views of the chest are obtained. FINDINGS: A small partially consolidative opacity in the left upper lobe lobe is again seen and is unchanged. M ost likely representing pneumonic infiltrate. Neoplasm is not entirely excluded and follow-up to reso lution is recommended. There is no pneumothorax or pleural effusion. The heart size and pulmonary vasculature are normal. The osseous structures are intact IMPRESSION: No change in the left upper lobe airspace consolidation/opacity. Likely pneumonic in nature but follo w-up to resolution is recommended to definitively exclude neoplasm.
[2022-10-12] MEDS: ALBUTEROL NEBULIZED 2.5 MG/3 ML INHALATION SCH ×4 (08:13→19:12)
[2022-10-12] MEDS ORDERED: RX INFO: IV CONTRAST WAS GIVEN 1 EACH MISC MISCELLANE PRN (08:29)
[2022-10-12] MEDS ORDERED: METOPROLOL SUCCINATE (ER) 25 MG TAB.ER.24H PO SCH (09:00)
[2022-10-12] MEDS ORDERED: ASPIRIN 81 MG PO SCH (09:00)
[2022-10-12] MEDS: PANTOPRAZOLE 40 MG TABLET PO SCH (09:24)
[2022-10-12] MEDS: AZITHROMYCIN 500 MG TAB PO SCH (09:24)
[2022-10-12 10:12] LABS: Basophils # (A) 0.05 X 10*3/uL (0.00-0.10); Basophils % (A) 0.7 %; Eosinophils # (A) 0.28 X 10*3/uL (0.04-0.35); Eosinophils % (A) 3.8 %; HCT 47.1 % (37.2-46.3); Immature Grans, Automated 0.5 %; Lymphocytes # (A) 1.51 X 10*3/uL (0.90-5.00); Lymphocytes % (A) 20.7 %; MCHC 31.8 g/dL (32.0-37.0); MCV 94.2 fL (80.0-97.0); Mean Platelet Volume 10.9 fL (9.5-12.2); Monocytes # (A) 0.96 X 10*3/uL (0.20-1.00); Monocytes % (A) 13.1 %; NRBC Per 100 WBC 0 /100 WBCS (0.0-0.0); Neutrophils # (A) 4.47 X 10*3/uL (1.80-7.70); Neutrophils % (A) 61.2 %; Platelet Count 246 X 10*3/uL (140-440); RDW 12.9 % (11.5-14.5); WBC 7.31 X 10*3/uL (4.50-10.00)
[2022-10-12 10:20] LABS: Anion Gap 11.4 mmol/L (10.00-18.00); BUN/Creat Ratio 18.11 Ratio (12.00-20.00); Blood Urea Nitrogen 16.3 mg/dL (9.0-27.0); Calcium 8.8 mg/dL (8.7-10.3); Carbon Dioxide 25.6 mmol/L (20.0-27.5); Potassium 4.7 mmol/L (3.5-5.5)
[2022-10-12] MEDS: predniSONE 20 MG TAB PO SCH (11:51)
--- NOTE | 2022-10-12 11:51 | CT ---
EXAMINATION TYPE: CT chest w con CT DLP: 346.5 mGycm, Automated exposure control for dose reduction was used. DATE OF EXAM: 10/12/2022 11:32 AM COMPARISON: CT chest 08/11/2018 CLINICAL INDICATION:Female, 62 years old with history of JUNITO mass, consolidation, Difficulty breathin g. TECHNIQUE: Multiple axial images were obtained through the chest. Sagittal and coronal reformats were created for review. Contrast used:100ml mL of Isovue 300 with IV Contrast Oral contrast used: none. FINDINGS: LUNGS/ PLEURA: Left upper lobe consolidation changes extending away from the pulmonary hilum towards the periphery. There is bronchiectasis changes within this area. Masslike areas roughly 5.1 x 4.0 x 3 .6 Centimeters. There is moderate to superimposed centrilobular emphysema changes. AIRWAY: Patent and unremarkable. HEART: Size within normal limits. MEDIASTINUM: Multiple lymph nodes are seen in the mediastinum including a window measuring 10 mm in s hort axis more rounded lymph nodes in the prevascular space measuring up to 7 mm left pulmonary hilum lymph node measuring 6 mm. VASCULATURE: No aortic aneurysm. No evidence for pulmonary embolism. No aortic dissection. MUSCULOSKELETAL: No acute osseous abnormalities SOFT TISSUES/LYMPH NODES: Breast implants appear intact. LOWER NECK: No significant findings. UPPER ABDOMEN: The gallbladder surgically absent. There is a gastric diverticulum near the adrenal gl and. IMPRESSION: 1. No evidence for pulmonary embolus. 2. Left upper lobe consolidation extends from the pulmonary hilum towards the periphery. Findings ar e favored represent infectious/ventricular process correlate with symptomology. A few prominent lymph nodes in the mediastinum may be reactive. Short-term follow-up CT chest and/or PET/CT is recommended to ensure resolution and rule out mass. 3. Moderate emphysema changes.
--- NOTE | 2022-10-12 12:39 | P.CNPUL ---
History of Present Illness Consult date: 10/12/22 Requesting physician: Woody Emery Reason for consult: dyspnea, COPD, abnormal CXR/CT Chief complaint: Shortness of breath, cough, congestion, fever History of present illness: This is a pleasant 62-year-old female patient with a known history of hypertension, Raynaud's disease, coronary disease with previous stent placement 2, 8 anxiety. Chest has a history of oxygen dependent chronic obstructive pulmonary disease and is maintained on Advair and Combivent. Obstructive sleep apnea maintained on CPAP at 12 cm water. Her FEV1 value 60% of predicted. She quit smoking in 2006. She follows with Dr. Sotelo in our office. She is presented here to the emergency room with a 2-3 day history of increasing shortness of breath, cough, congestion, chills and fever. Poor appetite and weakness. Chest x-ray shows evidence of chronic emphysematous changes with a new left upper lobe masslike consolidation favoring focal pneumonia. Neoplasm is not ruled out. Computed tomography scan of the chest revealed the left upper lobe consolidation extending from the pulmonary hilum towards the periphery. Findings are favored to represent infection/inflammatory process. There are a few prominent lymph nodes in the mediastinum that may be reactive. Motor emphysematous changes. White count 7.3. Hemoglobin 15.0. Platelets 246. Sodium 145. Potassium 4.7. Bicarb 26. He 116. Creatinine 0.9. Influenza screen negative. RSV screen negative. COVID-19 screen negative. The patient is seen today in consultation on the regular medical floor. She is awake and alert in no acute distress. She is maintaining O2 saturation in the 90s on 2 L/m per nasal cannula. She has been afebrile here. She does have a loose productive cough. Sputum cultures pending. She's been initiated on ceftriaxone and azithromycin along with bronchodilators and prednisone taper. Review of Systems REVIEW OF SYSTEMS: CONSTITUTIONAL: Generalized weakness. Poor appetite. Denies any recent significant weight loss or weight gain. EYES: Denies change in vision. EARS, NOSE, MOUTH, THROAT: Denies headaches, denies sore throat. CARDIOVASCULAR: Denies chest pain, palpitations or syncopal episodes. RESPIRATORY: Positive for shortness of breath, cough, congestion no hemoptysis. GASTROINTESTINAL: Denies change in appetite, denies abdominal pain GENITOURINARY: Denies hematuria, denies infections. MUSKULOSKELETAL: Denies pain, denies swelling. INTEGUMENTARY: Denies rash, denies eczema. NEUROLOGICAL: Denies recent memory loss, no recent seizure activity. PSYCHIATRIC: Denies anxiety, denies depression. HEMATOLOGIC/LYMPHATIC: Denies anemia, denies enlarged lymph nodes. Past Medical History Past Medical History: COPD, Fibromyalgia, GERD/Reflux, Hypertension, Myocardial Infarction ([place]), Musculoskeletal Disorder, Osteoarthritis (OA) Additional Past Medical History / Comment(s): BUSTER daughter, Raynauds disease, past hx. of adrenal insufficiency, Herniated discs , back pain, migraines, IBS, rheumatoid factor positive Last Myocardial Infarction Date:: 07/2006 History of Any Multi-Drug Resistant Organisms: None Reported Past Surgical History: Appendectomy, Breast Surgery, Section, Cholecystectomy, Heart Catheterization With Stent, Hernia Repair, Tonsillectomy Additional Past Surgical History / Comment(s): cardiac stent x2, abdominal laparoscopy x5, abd. surgery for adhesions, breast augmentation, blepharoplasty, umbilical hernia. Past Anesthesia/Blood Transfusion Reactions: Previous Problems w/ Anesthesia, Motion Sickness Additional Past Anesthesia/Blood Transfusion Reaction / Comment(s): slow to wake up @times, MIGRAINES. Date of Last Stent Placement:: 2006 Past Psychological History: Anxiety Smoking Status: Former smoker Past Alcohol Use History: Occasional Additional Past Alcohol Use History / Comment(s): quit smoking 2006, smoked for 30 yrs. Past Drug Use History: None Reported - Past Family History Mother Additional Family Medical History / Comment(s): EMPHYSEMA, possible lung cancer Medications and Allergies Home Medications Medication Instructions Recorded Confirmed Type Aspirin 81 mg PO DAILY 04/18/14 10/11/22 History Ipratropium-Albuterol Nebulize 3 ml INHALATION RT-QID 04/18/14 10/11/22 History [Duoneb 0.5 mg-3 mg/3 ml Soln] Metoprolol Succinate (ER) [Toprol 25 mg PO DAILY 04/18/14 10/11/22 History XL] Nitroglycerin Sl Tabs [Nitrostat] 0.4 mg SL Q5M PRN 04/18/14 10/11/22 History Ubidecarenone [Coenzyme Q10] 100 mg PO DAILY 04/18/14 10/11/22 History Cyclobenzaprine [Flexeril] 10 mg PO TID PRN 04/12/15 10/11/22 History Multivitamins, Thera [Multivitamin 1 tab PO DAILY 03/19/17 10/11/22 History (formulary)] Ipratropium/Albuterol Sulfate 1 puff INHALATION RT-QID PRN 05/28/17 10/11/22 History [Combivent Respimat Inhaler] Albuterol Sulfate [Proair Hfa] 1 - 2 puff INHALATION RT-Q6H PRN 01/24/21 10/11/22 History Fluticasone Propion/Salmeterol 2 puff INHALATION RT-BID 01/24/21 10/11/22 History [Advair Hfa 230-21 Mcg Inhaler] Omeprazole 40 mg PO DAILY 01/24/21 10/11/22 History Albuterol Nebulized [Ventolin 2.5 mg INHALATION RT-QID PRN 10/11/22 10/11/22 History Nebulized] Ascorbic Acid [Vitamin C] 1,000 mg PO DAILY 10/11/22 10/11/22 History Cholecalciferol [Vitamin D3 (125 125 mcg PO DAILY 10/11/22 10/11/22 History Mcg = 5000 Iu)] Furosemide [Lasix] 20 mg PO DAILY PRN 10/11/22 10/11/22 History Magnesium Oxide [Mag-Ox] 400 mg PO HS 10/11/22 10/11/22 History Melatonin 10 mg PO HS PRN 10/11/22 10/11/22 History Allergies Allergy/AdvReac Type Severity Reaction Status Date / Time amoxicillin [Amoxicillin] Allergy Nausea & Verified 10/11/22 15:39 Vomiting amoxicillin trihydrate Allergy Rapid Verified 10/11/22 15:39 [From Augmentin] Heart Rate megestrol acetate Allergy adrenal Verified 10/11/22 15:39 [From Megace] insufficiency potassium clavulanate Allergy Rapid Verified 10/11/22 15:39 [From Augmentin] Heart Rate terconazole [From Terazol 3] Allergy Rash/Hives Verified 10/11/22 15:39 codeine AdvReac Unknown Nausea & Verified 10/11/22 15:39 Vomiting hydrocodone [From Vicodin] AdvReac Unknown Nausea & Verified 10/11/22 15:39 Vomiting nitrofurantoin AdvReac Unknown Verified 10/11/22 15:39 nitrofurantoin AdvReac Nausea & Verified 10/11/22 15:39 macrocrystalline Vomiting [From Macrobid] Gnhaiwv-QTZ-TeF Reductase AdvReac muscle Verified 10/11/22 15:39 Inhibitor cramps [Wrubhgq-Rjr-Uym Reductase Inhibitor] sumatriptan [From Imitrex] AdvReac Rapid Verified 10/11/22 15:39 Heart Rate sumatriptan succinate AdvReac Rapid Verified 10/11/22 15:39 [From Imitrex] Heart Rate pnuemonia injection Allergy Anaphylaxis Uncoded 01/24/21 15:58 Physical Exam Vitals: Vital Signs Temp Pulse Pulse Resp BP BP Pulse Ox 10/12/22 12:05 85 10/12/22 08:22 90 10/12/22 08:14 88 10/12/22 05:52 98.1 F 77 18 111/59 95 10/12/22 01:16 98.4 F 80 15 134/71 96 10/11/22 20:39 88 10/11/22 20:32 84 10/11/22 20:07 97.7 F 84 18 127/81 92 L 10/11/22 19:25 81 18 121/51 95 10/11/22 17:30 91 20 116/56 94 L 10/11/22 15:01 98.6 F 92 20 92 L 10/11/22 14:58 95 20 88 L 10/11/22 14:37 94 10/11/22 14:23 92 10/11/22 14:00 88 20 92 L 10/11/22 13:58 88 22 84 L 10/11/22 12:35 76 10/11/22 12:20 75 Intake and Output 10/11/22 10/12/22 10/12/22 22:59 06:59 14:59 Other: # Voids 1 Weight 81.647 kg GENERAL EXAM: Alert, very pleasant 62-year-old female, on 2 L nasal cannula, comfortable in no apparent distress. HEAD: Normocephalic. EYES: Normal reaction of pupils, equal size. NOSE: Clear with pink turbinates. THROAT: No erythema or exudates. NECK: No masses, no JVD. CHEST: No chest wall deformity. LUNGS: Equal air entry with few scattered rhonchi more so on the left. CVS: S1 and S2 normal with no audible murmur, regular rhythm. ABDOMEN: No hepatosplenomegaly, normal bowel sounds, no guarding or rigidity. SPINE: No scoliosis or deformity SKIN: No rashes CENTRAL NERVOUS SYSTEM: No focal deficits, tone is normal in all 4 extremities. EXTREMITIES: There is no peripheral edema. No clubbing, no cyanosis. Peripheral pulses are intact. Results - Laboratory Findings CBC and BMP: 10/12/22 05:30 10/12/22 05:30 Abnormal lab findings: Abnormal Labs 10/11/22 10/11/22 10/12/22 11:53 11:53 05:30 Hct 46.5 H 47.1 H MCHC 31.8 L Glucose 104 H - Diagnostic Findings Chest x-ray: image reviewed CT scan - chest: image reviewed Assessment and Plan Assessment: Acute on chronic hypoxemic respiratory failure secondary to acute exacerbation of chronic obstructive pulmonary disease and possible left upper lobe pneumonia versus neoplasm. Computed tomography scan of the chest revealed the left upper lobe consolidation extending from the pulmonary hilum towards the periphery. Findings are favored to represent infection/inflammatory process. There are a few prominent lymph nodes in the mediastinum that may be reactive. Moderate emphysematous changes. Pro-calcitonin pending. Chronic obstructive pulmonary disease with an FEV1 to 60% of predicted, oxygen dependent Former smoker, quit in 2006 Obstructive sleep apnea maintained on CPAP at 12 cm of water Coronary artery disease with previous stent placement 2 Raynaud's disease Fibromyalgia Hypertension Anxiety Plan: The patient was seen and evaluated Chest x-ray, CT scan, medications and labs reviewed Continue antibiotics for now Procalcitonin pending Cannot rule out underlying malignancy May need bronchoscopy with biopsies Titrate the FiO2 as tolerated Continue bronchodilators, steroids We will continue to follow and make further recommendations based on her clinical status I have personally seen and examined the patient, performed the documentation and the assessment and plan as written. Number of minutes spent on the visit: 20.
--- NOTE | 2022-10-12 14:22 | P.PN ---
Subjective Progress Note Date: 10/12/22 Patient is a 62-year-old female with PMH of COPD, CAD, hypertension that presents the ED for fever and shortness of breath that has been ongoing since Friday. Patient reports it measured fever of 102 Fahrenheit. She reports progressive weakness and worsening shortness of breath which prompted her to com e to the ED. She reports a decreased appetite. She is noncompliant with her home oxygen of 2 L. She denies any headache, lower extremity edema, nausea or vomiting, cough, chest pain, palpitations, changes in urination or bowel habits. No changes in weight. She denies any dizziness, numbness/weakness/tingling of extremities. In the ED, she was tachycardic with heart rate of 95 and O2 saturation of 88% on room air. Vital signs are otherwise stable. CBC showed hematocrit of 46.5. CMP showed glucose 104. Troponin was less than 0.012. Influenza, RSV and COVID-19 negative. Chest x-ray showed left upper lobe consolidation. Patient is admitted for treatment of pneumonia. Patient was seen and examined. No acute events overnight. Patient reports feeling winded when walking to the bathroom. General: non toxic, mild distress, appears at stated age, dyspnea speaking in 2 word sentences. Derm: warm, dry Head: atraumatic, normocephalic, symmetric Eyes: EOMI, no lid lag, anicteric sclera Mouth: no lip lesion, mucus membranes moist Cardiovascular: S1S2 reg, no murmur Lungs: Expiratory wheezing bilateral, no rhonchi, no rales , no accessory muscle use Abdominal: soft, nontender to palpation, no guarding, no appreciable organomegaly Ext: no gross muscle atrophy, no edema, no contractures Neuro: no focal neuro deficits Psych: Alert, oriented, appropriate affect Acute hypoxic respiratory failure Community-acquired pneumonia COPD exacerbation Chronic conditions: CAD, hypertension Based on my assessment of this patient, this patient meets a high complexity level of care. Patient has an acute diagnosis of acute hypoxic respiratory failure secondary to community core pneumonia that poses a threat to life or bodily function. Chest x-ray shows left-sided infiltrate. She is currently on 2 L nasal cannula to maintain O2 saturation greater than 92%. Continue Rocephin 2 g IV daily and azithromycin 500 mg by mouth daily for treatment of community acquired pneumonia. Collect sputum culture, Legionella antigen and blood culture. Albuterol neb PRN for SOB/wheezing. Start prednisone 40 mg by mouth daily. Pulmonology consulted for further management of this patient. CAD - History of stents. ASA 81 mg PO QD. Metoprolol as below. States intolerant to statins. Hypertension - Metoprolol 25 mg PO QD. GERD - Prilosec 40 mg PO QD. Patient names his decision-maker if he can't make decisions for himself. Patient would like to be full code. Lovenox SQ for DVT prophylaxis. I have reviewed the following sap payroll consultant notes: None. I have reviewed the results of the following tests: CBC and BMP within normal limits. I have ordered the following tests: Sputum culture, Legionella antigen and blood culture pending. I have discussed the care of this patient with the following independent historian: None. I have independently interpreted the following test below: Chest x-ray showed left upper lobe consolidation, similar to yesterday. I have discussed the management of this patient with the following physician: None. Objective - Vital Signs Vital signs: Vital Signs Temp 99.4 F 10/12/22 13:01 Pulse 73 10/12/22 13:01 Resp 18 10/12/22 13:01 BP 112/70 10/12/22 13:01 Pulse Ox 94 L 10/12/22 13:01 FiO2 Intake & Output 10/11/22 10/12/22 10/12/22 18:59 06:59 18:59 Weight 81.647 kg 81.647 kg Other: # Voids 1 - Labs CBC & Chem 7: 10/12/22 05:30 10/12/22 05:30 Labs: Abnormal Lab Results - Last 24 Hours (Table) 10/12/22 Range/Units 05:30 Hct 47.1 H (37.2-46.3) % MCHC 31.8 L (32.0-37.0) g/dL Microbiology - Last 24 Hours (Table) 10/12/22 09:39 Sputum Culture - Preliminary Sputum 10/12/22 09:39 Legionella Culture - Preliminary Sputum 10/11/22 15:51 Blood Culture Gram Stain - Preliminary Blood
[2022-10-12] MEDS: SYMBICORT 160-4.5 MCG INHALER INHALATION SCH (19:11)
[2022-10-12] MEDS: ASPIRIN 81 MG PO SCH (21:06)
[2022-10-12] MEDS: METOPROLOL SUCCINATE (ER) 25 MG TAB.ER.24H PO SCH (21:06)
[2022-10-13] MEDS: MELATONIN 5 MG TABLET PO SCH ×2 (02:51→20:26)
[2022-10-13] MEDS: ALBUTEROL NEBULIZED 2.5 MG/3 ML INHALATION SCH ×4 (07:44→19:34)
[2022-10-13] MEDS: SYMBICORT 160-4.5 MCG INHALER INHALATION SCH ×2 (07:44→19:34)
[2022-10-13] MEDS: AZITHROMYCIN 500 MG TAB PO SCH (08:11)
[2022-10-13] MEDS: PANTOPRAZOLE 40 MG TABLET PO SCH (08:12)
[2022-10-13] MEDS: predniSONE 20 MG TAB PO SCH (08:12)
[2022-10-13] MEDS ORDERED: KETOROLAC 15 MG/ML 1 ML VIAL IVP PRN (11:16)
--- NOTE | 2022-10-13 11:20 | P.PN ---
Subjective Progress Note Date: 10/13/22 Patient is a 62-year-old female with PMH of COPD, CAD, hypertension that presents the ED for fever and shortness of breath that has been ongoing since Friday. Patient reports it measured fever of 102 Fahrenheit. She reports progressive weakness and worsening shortness of breath which prompted her to com e to the ED. She reports a decreased appetite. She is noncompliant with her home oxygen of 2 L. She denies any headache, lower extremity edema, nausea or vomiting, cough, chest pain, palpitations, changes in urination or bowel habits. No changes in weight. She denies any dizziness, numbness/weakness/tingling of extremities. In the ED, she was tachycardic with heart rate of 95 and O2 saturation of 88% on room air. Vital signs are otherwise stable. CBC showed hematocrit of 46.5. CMP showed glucose 104. Troponin was less than 0.012. Influenza, RSV and COVID-19 negative. Chest x-ray showed left upper lobe consolidation. Patient is admitted for treatment of pneumonia. Patient was seen and examined. No acute events overnight. Patient continues to feel winded when walking to the bathroom. General: non toxic, mild distress, appears at stated age, dyspnea speaking in 2 word sentences. Derm: warm, dry Head: atraumatic, normocephalic, symmetric Eyes: EOMI, no lid lag, anicteric sclera Cardiovascular: S1S2 reg, no murmur Lungs: Expiratory wheezing bilateral, no rhonchi, no rales , no accessory muscle use Ext: no gross muscle atrophy, no edema, no contractures Neuro: no focal neuro deficits Psych: Alert, oriented, appropriate affect Acute hypoxic respiratory failure Community-acquired pneumonia Gram + bacteremia COPD exacerbation Chronic conditions: CAD, hypertension Based on my assessment of this patient, this patient meets a moderate complexity level of care. Patient has an acute diagnosis of acute hypoxic respiratory failure secondary to community core pneumonia that poses a threat to life or bodily function. Chest x-ray shows left-sided infiltrate. She is currently on 2 L nasal cannula to maintain O2 saturation greater than 92%. Continue Rocephin 2 g IV daily and azithromycin 500 mg by mouth daily for treatment of community acquired pneumonia. Collected sputum culture, Legionella antigen. Albuterol neb PRN for SOB/wheezing. Start prednisone 40 mg by mouth daily. Pulmonology on board. Gram positive bacilli on one blood culture likely contaminant. Patient is pending clinical improvement. Anticipate DC in 1-2 days. CAD - History of stents. ASA 81 mg PO QD. Metoprolol as below. States intolerant to statins. Hypertension - Metoprolol 25 mg PO QD. GERD - Prilosec 40 mg PO QD. Patient names his decision-maker if he can't make decisions for himself. Patient would like to be full code. Lovenox SQ for DVT prophylaxis. I have reviewed the following inside sales consultant notes: None. I have reviewed the results of the following tests: CT chest shows JUNITO consolidation with prominent lymph nodes in the mediastinum. I have ordered the following tests: None. I have discussed the care of this patient with the following independent historian: None. I have independently interpreted the following test below: None. I have discussed the management of this patient with the following physician: None. Objective - Vital Signs Vital signs: Vital Signs Temp 97.6 F 10/13/22 07:41 Pulse 76 10/13/22 11:10 Resp 18 10/13/22 07:41 BP 115/54 10/13/22 07:41 Pulse Ox 92 L 10/13/22 07:44 FiO2 Intake & Output 10/12/22 10/13/22 10/13/22 18:59 06:59 18:59 Intake Total 540 Balance 540 Intake: Oral 540 Other: # Voids 2 2 - Labs CBC & Chem 7: 10/12/22 05:30 10/12/22 05:30 Labs: Microbiology - Last 24 Hours (Table) 10/11/22 15:51 Blood Culture - Preliminary Blood 10/12/22 09:39 Gram Stain - Preliminary Sputum Sputum Culture - Preliminary 10/12/22 09:39 Legionella Culture - Preliminary Sputum 10/11/22 15:51 Blood Culture Gram Stain - Preliminary Blood
--- NOTE | 2022-10-13 11:32 | P.PN ---
Subjective Progress Note Date: 10/13/22 This is a pleasant 62-year-old female patient with a known history of hypertension, Raynaud's disease, coronary disease with previous stent placement 2, 8 anxiety. Chest has a history of oxygen dependent chronic obstructive pulmonary disease and is maintained on Advair and Combivent. Obstructive sleep apnea maintained on CPAP at 12 cm water. Her FEV1 value 60% of predicted. She quit smoking in 2006. She follows with Dr. Sotelo in our office. She is presented here to the emergency room with a 2-3 day history of increasing shortness of breath, cough, congestion, chills and fever. Poor appetite and weakness. Chest x-ray shows evidence of chronic emphysematous changes with a new left upper lobe masslike consolidation favoring focal pneumonia. Neoplasm is not ruled out. Computed tomography scan of the chest revealed the left upper lobe consolidation extending from the pulmonary hilum towards the periphery. Findings are favored to represent infection/inflammatory process. There are a few prominent lymph nodes in the mediastinum that may be reactive. Motor emphysematous changes. White count 7.3. Hemoglobin 15.0. Platelets 246. Sodium 145. Potassium 4.7. Bicarb 26. He 116. Creatinine 0.9. Influenza screen negative. RSV screen negative. COVID-19 screen negative. The patient is seen today in consultation on the regular medical floor. She is awake and alert in no acute distress. She is maintaining O2 saturation in the 90s on 2 L/m per nasal cannula. She has been afebrile here. She does have a loose productive cough. Sputum cultures pending. She's been initiated on ceftriaxone and azithromycin along with bronchodilators and prednisone taper. The patient is seen today 10/13/2022 and follow-up on the regular medical floor. She is currently sitting up in bed. Awake and alert in no acute distress. Feeling a bit better today compared to yesterday. Still with a loose nonproductive cough. She remains on Symbicort and albuterol. Antibiotics in the form of ceftriaxone. She is on a prednisone taper. Her pro-calcitonin was 0.09. Blood and sputum cultures pending. Urine legionella antigen negative. Objective - Vital Signs Vital signs: Vital Signs Temp 97.6 F 10/13/22 07:41 Pulse 76 10/13/22 11:10 Resp 18 10/13/22 07:41 BP 115/54 10/13/22 07:41 Pulse Ox 92 L 10/13/22 07:44 FiO2 Intake & Output 10/12/22 10/13/22 10/13/22 18:59 06:59 18:59 Intake Total 540 Balance 540 Intake: Oral 540 Other: # Voids 2 2 - Exam GENERAL EXAM: Alert, pleasant 62-year-old female, on 2 L nasal cannula, sitting up in bed, comfortable in no apparent distress. HEAD: Normocephalic. EYES: Normal reaction of pupils, equal size. NOSE: Clear with pink turbinates. THROAT: No erythema or exudates. NECK: No masses, no JVD. CHEST: No chest wall deformity. LUNGS: Equal air entry with few scattered rhonchi more so on the left. CVS: S1 and S2 normal with no audible murmur, regular rhythm. ABDOMEN: No hepatosplenomegaly, normal bowel sounds, no guarding or rigidity. SPINE: No scoliosis or deformity SKIN: No rashes CENTRAL NERVOUS SYSTEM: No focal deficits, tone is normal in all 4 extremities. EXTREMITIES: There is no peripheral edema. No clubbing, no cyanosis. Peripheral pulses are intact. - Labs CBC & Chem 7: 10/12/22 05:30 10/12/22 05:30 Labs: Microbiology - Last 24 Hours (Table) 10/11/22 15:51 Blood Culture - Preliminary Blood 10/12/22 09:39 Gram Stain - Preliminary Sputum Sputum Culture - Preliminary 10/12/22 09:39 Legionella Culture - Preliminary Sputum 10/11/22 15:51 Blood Culture Gram Stain - Preliminary Blood Assessment and Plan Assessment: Acute on chronic hypoxemic respiratory failure secondary to acute exacerbation of chronic obstructive pulmonary disease and possible left upper lobe pneumonia versus neoplasm. Computed tomography scan of the chest revealed the left upper lobe consolidation extending from the pulmonary hilum towards the periphery. Findings are favored to represent infection/inflammatory process. There are a few prominent lymph nodes in the mediastinum that may be reactive. Moderate emphysematous changes. Pro-calcitonin 0.09. Chronic obstructive pulmonary disease with an FEV1 to 52% of predicted, oxygen dependent Former smoker, quit in 2006 Obstructive sleep apnea maintained on CPAP at 12 cm of water Coronary artery disease with previous stent placement 2 Raynaud's disease Fibromyalgia Hypertension Anxiety Plan: The patient was seen and evaluated Medications and labs reviewed Pro-calcitonin normal at 0.09 Cannot rule out underlying malignancy May need bronchoscopy with biopsies Titrate the FiO2 as tolerated Continue bronchodilators, steroids Follow-up chest x-ray in a.m. We will continue to follow I have personally seen and examined the patient, performed the documentation and the assessment and plan as written. Number of minutes spent on the visit: 10.
[2022-10-13] MEDS: ASPIRIN 81 MG PO SCH (20:26)
[2022-10-13] MEDS: METOPROLOL SUCCINATE (ER) 25 MG TAB.ER.24H PO SCH (20:26)
[2022-10-14] MEDS: SYMBICORT 160-4.5 MCG INHALER INHALATION SCH (07:34)
[2022-10-14] MEDS: ALBUTEROL NEBULIZED 2.5 MG/3 ML INHALATION SCH ×2 (07:34→11:27)
--- NOTE | 2022-10-14 07:41 | XR ---
EXAMINATION TYPE: XR chest 2V DATE OF EXAM: 10/14/2022 COMPARISON: Chest x-ray and CT 2 days ago HISTORY: Prior abnormal x-ray and CT. TECHNIQUE: Frontal and lateral views of the chest are obtained. FINDINGS: There is persistent irregular mass or masslike consolidation in the left upper lobe backgr ound chronic emphysematous change. Right lung remains clear. The cardiac silhouette size is stable an d within normal limits. The osseous structures are intact. Cholecystectomy clips are redemonstrated . IMPRESSION: Chronic emphysematous change with persistent left upper lobe spiculated mass or masslike consolidation. No significant change from most recent studies.
[2022-10-14] MEDS: PANTOPRAZOLE 40 MG TABLET PO SCH (09:31)
[2022-10-14] MEDS: predniSONE 20 MG TAB PO SCH (09:31)
--- NOTE | 2022-10-14 11:41 | P.DS ---
Providers Date of admission: 10/11/22 15:47 Expected date of discharge: 10/14/22 Attending physician: Woody Emery MD Consults: 10/11/22 15:20 Consult Physician Routine Consulting Provider: Makenzie Rogers Consult Reason/Comments: pnuemonia vs. mass in left upper lobe Do you want consulting provider notified?: Yes Primary care physician: [facility] Hospital Course: Patient is a 62-year-old female with PMH of COPD, CAD, hypertension that presents the ED for fever and shortness of breath that has been ongoing since Friday. Patient reports it measured fever of 102 Fahrenheit. She reports progressive weakness and worsening shortness of breath which prompted her to come to the ED. She reports a decreased appetite. She is noncompliant with her home oxygen of 2 L. She denies any headache, lower extremity edema, nausea or vomiting, cough, chest pain, palpitations, changes in urination or bowel habits. No changes in weight. She denies any dizziness, numbness/weakness/tingling of extremities. In the ED, she was tachycardic with heart rate of 95 and O2 saturation of 88% on room air. Vital signs are otherwise stable. CBC showed hematocrit of 46.5. CMP showed glucose 104. Troponin was less than 0.012. Influenza, RSV and COVID-19 negative. Chest x-ray showed left upper lobe consolidation. Patient was admitted for treatment of pneumonia. Patient was started on Rocephin and azithromycin and pulmonology was consulted. She was also started on bronchodilators and prednisone by mouth. She had one blood culture come back positive for gram-positive bacilli thought to be a contaminant. Her respiratory status improved slowly. CT chest showed JUNITO consolidation with prominent lymph nodes in the mediastinum. Pulmonology recommended outpatient PET scan and follow-up for possible bronchoscopy and biopsy if positive. Patient was seen and examined. No acute events overnight. Patient reports considerable improvement in her breathing. States that she is almost back to baseline. Comfortable being discharged home. She does have an appointment with Dr. Sotelo on 10/22. She is to obtain a PET scan prior to her appointment. She'll be discharged home with Levaquin 500 milligrams by mouth for 2 more days to complete a total of 5 days antibiotics along with a prednisone taper. She does have a nebulizer with nebulized solution, albuterol inhaler and Advair at home. Pertinent studies include chest x-ray, chest CT. General: non toxic, no distress Derm: warm, dry Head: atraumatic, normocephalic, symmetric Eyes: EOMI, no lid lag, anicteric sclera Cardiovascular: S1S2 reg, no murmur Lungs: Decreased breath sounds bilateral, no rhonchi, no rales , no accessory muscle use Ext: no gross muscle atrophy, no edema, no contractures Neuro: no focal neuro deficits Psych: Alert, oriented, appropriate affect Discharge diagnosis: Acute hypoxic respiratory failure Community-acquired pneumonia Gram + bacteremia COPD exacerbation Chronic conditions: CAD, hypertension This complex discharge took 35 minutes to complete. Patient Condition at Discharge: Stable Plan - Discharge Summary Discharge Rx Participant: Yes New Discharge Prescriptions: New Levofloxacin [Levaquin] 500 mg PO DAILY 2 Days #2 tab predniSONE See Taper PO DIRECTED #30 tab Continue Metoprolol Succinate (ER) [Toprol XL] 25 mg PO DAILY Aspirin 81 mg PO DAILY Ubidecarenone [Coenzyme Q10] 100 mg PO DAILY Nitroglycerin Sl Tabs [Nitrostat] 0.4 mg SL Q5M PRN PRN Reason: Chest Pain Ipratropium-Albuterol Nebulize [Duoneb 0.5 mg-3 mg/3 ml Soln] 3 ml INHALATION RT-QID Cyclobenzaprine [Flexeril] 10 mg PO TID PRN PRN Reason: muscle relaxant Multivitamins, Thera [Multivitamin (formulary)] 1 tab PO DAILY Ipratropium/Albuterol Sulfate [Combivent Respimat Inhaler] 1 puff INHALATION RT-QID PRN PRN Reason: IF OUT AND NO NEBULIZER Albuterol Sulfate [Proair Hfa] 1 - 2 puff INHALATION RT-Q6H PRN PRN Reason: Shortness Of Breath Cholecalciferol [Vitamin D3 (125 Mcg = 5000 Iu)] 125 mcg PO DAILY Melatonin 10 mg PO HS PRN PRN Reason: SLEEP Magnesium Oxide [Mag-Ox] 400 mg PO HS Ascorbic Acid [Vitamin C] 1,000 mg PO DAILY Omeprazole 40 mg PO DAILY Fluticasone Propion/Salmeterol [Advair Hfa 230-21 Mcg Inhaler] 2 puff INHALATION RT-BID Furosemide [Lasix] 20 mg PO DAILY PRN PRN Reason: Edema Albuterol Nebulized [Ventolin Nebulized] 2.5 mg INHALATION RT-QID PRN PRN Reason: Shortness Of Breath Discharge Medication List Aspirin 81 mg PO DAILY 04/18/14 [History] Ipratropium-Albuterol Nebulize [Duoneb 0.5 mg-3 mg/3 ml Soln] 3 ml INHALATION RT-QID 04/18/14 [History] Metoprolol Succinate (ER) [Toprol XL] 25 mg PO DAILY 04/18/14 [History] Nitroglycerin Sl Tabs [Nitrostat] 0.4 mg SL Q5M PRN 04/18/14 [History] Ubidecarenone [Coenzyme Q10] 100 mg PO DAILY 04/18/14 [History] Cyclobenzaprine [Flexeril] 10 mg PO TID PRN 04/12/15 [History] Multivitamins, Thera [Multivitamin (formulary)] 1 tab PO DAILY 03/19/17 [History] Ipratropium/Albuterol Sulfate [Combivent Respimat Inhaler] 1 puff INHALATION RT- QID PRN 05/28/17 [History] Albuterol Sulfate [Proair Hfa] 1 - 2 puff INHALATION RT-Q6H PRN 01/24/21 [History] Fluticasone Propion/Salmeterol [Advair Hfa 230-21 Mcg Inhaler] 2 puff INHALATION RT-BID 01/24/21 [History] Omeprazole 40 mg PO DAILY 01/24/21 [History] Albuterol Nebulized [Ventolin Nebulized] 2.5 mg INHALATION RT-QID PRN 10/11/22 [History] Ascorbic Acid [Vitamin C] 1,000 mg PO DAILY 10/11/22 [History] Cholecalciferol [Vitamin D3 (125 Mcg = 5000 Iu)] 125 mcg PO DAILY 10/11/22 [History] Furosemide [Lasix] 20 mg PO DAILY PRN 10/11/22 [History] Magnesium Oxide [Mag-Ox] 400 mg PO HS 10/11/22 [History] Melatonin 10 mg PO HS PRN 10/11/22 [History] Levofloxacin [Levaquin] 500 mg PO DAILY 2 Days #2 tab 10/14/22 [Rx] predniSONE See Taper PO DIRECTED #30 tab 10/14/22 [Rx] Follow up Appointment(s)/Referral(s): Justino Olivier MD [Primary Care Provider] - 1-2 days (The office was unavailable to make follow up appointment. Please call and schedule own appointment.) Gabriele Sotelo DO [Family Provider] - 10/22/22 8:30 am (Dr. Sotelo's office will be scheduling PET scan. Earliest available appt. is not until October 02.) Patient Instructions/Handouts: Prednisone (By mouth), Levofloxacin (By mouth), Using Oxygen at Home (DC), COPD (Chronic Obstructive Pulmonary Disease) (DC), Dyspnea (DC) Activity/Diet/Wound Care/Special Instructions: PET can to be completed as outpatient prior to follow up with Dr. Sotelo Diet: Regular Follow up with your PCP within 1-2 days of discharge. Follow up with Dr. Sotelo with the appointment given to you. Take all medications as advised. Come back to the ED for worsening shortness of breath, palpitations, chest pain. Discharge Disposition: HOME SELF-CARE
[2022-10-14 13:02] VITALS: BP 114/56; PULSE 90; RESP 16; TEMP 98.5
--- NOTE | 2022-10-14 15:43 | P.PN ---
Subjective Progress Note Date: 10/14/22 This is a pleasant 62-year-old female patient with a known history of hypertension, Raynaud's disease, coronary disease with previous stent placement 2, 8 anxiety. Chest has a history of oxygen dependent chronic obstructive pulmonary disease and is maintained on Advair and Combivent. Obstructive sleep apnea maintained on CPAP at 12 cm water. Her FEV1 value 60% of predicted. She quit smoking in 2006. She follows with Dr. Sotelo in our office. She is presented here to the emergency room with a 2-3 day history of increasing shortness of breath, cough, congestion, chills and fever. Poor appetite and weakness. Chest x-ray shows evidence of chronic emphysematous changes with a new left upper lobe masslike consolidation favoring focal pneumonia. Neoplasm is not ruled out. Computed tomography scan of the chest revealed the left upper lobe consolidation extending from the pulmonary hilum towards the periphery. Findings are favored to represent infection/inflammatory process. There are a few prominent lymph nodes in the mediastinum that may be reactive. Motor emphysematous changes. White count 7.3. Hemoglobin 15.0. Platelets 246. Sodium 145. Potassium 4.7. Bicarb 26. He 116. Creatinine 0.9. Influenza screen negative. RSV screen negative. COVID-19 screen negative. The patient is seen today in consultation on the regular medical floor. She is awake and alert in no acute distress. She is maintaining O2 saturation in the 90s on 2 L/m per nasal cannula. She has been afebrile here. She does have a loose productive cough. Sputum cultures pending. She's been initiated on ceftriaxone and azithromycin along with bronchodilators and prednisone taper. The patient is seen today 10/13/2022 and follow-up on the regular medical floor. She is currently sitting up in bed. Awake and alert in no acute distress. Feeling a bit better today compared to yesterday. Still with a loose nonproductive cough. She remains on Symbicort and albuterol. Antibiotics in the form of ceftriaxone. She is on a prednisone taper. Her pro-calcitonin was 0.09. Blood and sputum cultures pending. Urine legionella antigen negative. The patient is seen today 10/14/2022 in follow-up on the regular medical floor. She is currently sitting up in bed. Awake and alert in no acute distress. She is feeling better and nearly back to her baseline. Still with a loose nonproductive cough. She is maintaining O2 saturations in the 90s on 2 L/m per nasal cannula. Follow-up chest x-ray reveals chronic emphysematous changes with persistent left upper lobe spiculated mass or masslike consolidation. No significant change from previous. Sputum culture revealed no growth. She is continued on Symbicort, prednisone taper. Antibiotics in the form of ceftriaxone. Objective - Vital Signs Vital signs: Vital Signs Temp 98.5 F 10/14/22 12:41 Pulse 90 10/14/22 12:41 Resp 16 10/14/22 12:41 BP 114/56 10/14/22 12:41 Pulse Ox 94 L 10/14/22 12:41 FiO2 Intake & Output 10/13/22 10/14/22 10/14/22 18:59 06:59 18:59 Intake Total 350 325 Balance 350 325 Intake: Intake, IV Titration 50 Amount cefTRIAXone 2 gm In 50 Sodium Chloride 0.9% 50 ml @ 100 mls/hr IVPB Q24HR [facility] Rx#:[id number] Oral 300 325 Other: # Voids 3 2 - Exam GENERAL EXAM: Alert, pleasant 62-year-old female, on 2 L nasal cannula, comfortable in no apparent distress. HEAD: Normocephalic. EYES: Normal reaction of pupils, equal size. NOSE: Clear with pink turbinates. THROAT: No erythema or exudates. NECK: No masses, no JVD. CHEST: No chest wall deformity. LUNGS: Equal air entry with few scattered rhonchi more so on the left. CVS: S1 and S2 normal with no audible murmur, regular rhythm. ABDOMEN: No hepatosplenomegaly, normal bowel sounds, no guarding or rigidity. SPINE: No scoliosis or deformity SKIN: No rashes CENTRAL NERVOUS SYSTEM: No focal deficits, tone is normal in all 4 extremities. EXTREMITIES: There is no peripheral edema. No clubbing, no cyanosis. Peripheral pulses are intact. - Labs CBC & Chem 7: 10/12/22 05:30 10/12/22 05:30 Labs: Microbiology - Last 24 Hours (Table) 10/12/22 09:39 Gram Stain - Final Sputum Sputum Culture - Final 10/11/22 15:51 Blood Culture - Preliminary Blood 10/11/22 15:51 Blood Culture Gram Stain - Final Blood Blood Culture - Final Bacillus species Not Anthracis Assessment and Plan Assessment: Acute on chronic hypoxemic respiratory failure secondary to acute exacerbation of chronic obstructive pulmonary disease and possible left upper lobe pneumonia versus neoplasm. Computed tomography scan of the chest revealed the left upper lobe consolidation extending from the pulmonary hilum towards the periphery. Findings are favored to represent infection/inflammatory process. There are a few prominent lymph nodes in the mediastinum that may be reactive. Moderate emphysematous changes. Pro-calcitonin 0.09. Chronic obstructive pulmonary disease with an FEV1 to 52% of predicted, oxygen dependent Former smoker, quit in 2006 Obstructive sleep apnea maintained on CPAP at 12 cm of water Coronary artery disease with previous stent placement 2 Raynaud's disease Fibromyalgia Hypertension Anxiety Plan: The patient was seen and evaluated Medications reviewed Pro-calcitonin normal at 0.09 Cannot rule out underlying malignancy Cleared for discharge from pulmonary standpoint Continue her home pulmonary medications and oxygen Complete a prednisone taper Follow-up with Dr. Sotelo next week We'll schedule for outpatient PET scan I have personally seen and examined the patient, performed the documentation and the assessment and plan as written. Number of minutes spent on the visit: 10.
== END 2022-10-14 14:14 | disposition home or self-care (01) | DRG 193 ==
LOC: EC 11:24 → 5NMEDONC 15:47
PROVIDERS: ADMIT Family Medicine; ATTEND Family Medicine
DX: J18.9 Pneumonia, unspecified organism (principal); J96.01 Acute respiratory failure with hypoxia; J44.0 Chronic obstructive pulmonary disease with (acute) lower respiratory infection; R78.81 Bacteremia; E27.40 Unspecified adrenocortical insufficiency; M19.90 Unspecified osteoarthritis, unspecified site; M79.7 Fibromyalgia; I25.2 Old myocardial infarction; Z87.891 Personal history of nicotine dependence; I10 Essential (primary) hypertension; G47.33 Obstructive sleep apnea (adult) (pediatric); I25.10 Atherosclerotic heart disease of native coronary artery without angina pectoris; K21.9 Gastro-esophageal reflux disease without esophagitis; F41.9 Anxiety disorder, unspecified; K58.9 Irritable bowel syndrome, unspecified; Z99.81 Dependence on supplemental oxygen; R59.0 Localized enlarged lymph nodes; Z91.199 Patient's noncompliance with other medical treatment and regimen due to unspecified reason; I73.00 Raynaud's syndrome without gangrene; Z20.822 Contact with and (suspected) exposure to COVID-19; Z95.5 Presence of coronary angioplasty implant and graft; G43.909 Migraine, unspecified, not intractable, without status migrainosus; Z88.5 Allergy status to narcotic agent; Z88.0 Allergy status to penicillin; Z91.014 Allergy to mammalian meats; Z79.899 Other long term (current) drug therapy
CPT/HCPCS: 36415; 71046; 71260; 80048; 80053; 84145; 84484; 85025; 87070; 87205; 87449; 87636; 94640; 94760; 96361; 96365; 96368; 99285

== ENCOUNTER → 2022-11-16 | Outpatient (CLI) | payer MEDICARE, OTHER ==
--- NOTE | 2022-11-17 22:46 | PE ---
EXAMINATION TYPE: PET CT fusion skull to thigh DATE OF EXAM: 11/16/2022 CLINICAL INDICATION:Female, 62 years old with history of R91.1; TECHNIQUE: Following the intravenous administration of 10.5 mCi of F-18 FDG, whole body images are performed from the skull base to the midthigh. Images are reviewed on the computer in the coronal, a xial, and sagittal planes. Reconstructed rotating images are created on independent workstation and reviewed on the computer. A non-contrast CT is performed in conjunction with the PET scan. Glucose level 93 mg/dL COMPARISON: CT 10/12/2022, PET/CT None, FINDINGS: Mediastinal SUV mean is 1.6. Hepatic parenchyma SUV mean is 2.5. SKULL BASE AND NECK: No suspicious radiotracer activity. CHEST, MEDIASTINUM, AND HILAR REGION: * Suspected left upper lung atelectasis/scarring changes max SUV 1.3 is a new from 12/24/2021 and dec reased from prior CT 10/12/2022. * No mediastinal FDG avid lymph nodes are identified. Lymph nodes seen on prior have decreased in si ze. * No suspicious radiotracer activity. ABDOMEN AND PELVIS: No suspicious radiotracer activity. OSSEOUS STRUCTURES: No suspicious radiotracer activity. OTHER CT: Sclerosis at the carotid bifurcations. There is bilateral breast implants. Implants appear intact. The heart is mildly enlarged for size. Centrilobular emphysema changes are seen throughout th e lungs. The gallbladder surgically absent. IMPRESSION: 1. Decrease in left upper lung consolidation changes now with a streaky scarring/atelectasis appeara nce suspicious for prior infectious/inflammatory process. Continued CT surveillance is recommended. C onsider CT in 3 months to ensure continued progress/resolution. 2. No suspicious FDG activity seen within the exam.
== END | disposition home or self-care (01) ==
LOC: RADPETMAIN 08:15
PROVIDERS: ATTEND Internal Medicine Critical Care Medicine
DX: R91.1 Solitary pulmonary nodule (principal)
CPT/HCPCS: 78815; A9552

== ENCOUNTER → 2023-02-26 | Outpatient (CLI) | payer MEDICARE, OTHER ==
--- NOTE | 2023-02-26 13:23 | US ---
EXAMINATION TYPE: US carotid duplex BILAT DATE OF EXAM: 02/26/2023 COMPARISON: 11/16/2022 CLINICAL INDICATION: Female, 62 years old with history of I65.29 OCCLUSION AND STENOSIS OF UNSPECIFIE D CAROT; PET scan, plaque in bulbs TECHNIQUE: Carotid duplex ultrasound examination. Indirect Doppler criteria was utilized. 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 LT ICA difficult to assess due to tortuosity and kinking of vessel. Elevated velocity @ mid LT ICA ma y be due to kinking. Bilateral mild plaque at carotid bulbs IMPRESSION: 1. No significant flow-limiting stenosis based on velocities. There is some limitation in the examina tion. Criteria for Assigning % of Stenosis / Diameter reduction (Estimation based on the indirect measurements of the internal carotid artery velocities (ICA PSV). 1. Normal (no stenosis)=ICA PSV < 125 cm/s: ratio < 2.0: ICA EDV<40 cm/s. 2. Less than 50% stenosis=ICA PSV < 125 cm/s: ratio < 2.0: ICA EDV<40 cm/s. 3. 50 to 69% stenosis=ICA PSV of 125 to 230 cm/s: ration 2.0 ? 4.0: ICA EDV 40-100 cm/s. 4. Greater than 70% stenosis to near occlusion= ICA PSV > 230 cm/s: ratio > 4.0: ICA EDV > 100 cm/s. 5. Near occlusion= ICA PSV velocities may be low or undetectable: variable ratio and ICA EDV. 6. Total occlusion=unable to detect flow.
== END | disposition home or self-care (01) ==
LOC: RADUSWWP 10:25
PROVIDERS: ATTEND Family Medicine
DX: I65.23 Occlusion and stenosis of bilateral carotid arteries (principal)
CPT/HCPCS: 93880

== ENCOUNTER 2023-04-27 23:21 | Inpatient (IN) | payer MEDICARE, OTHER ==
--- NOTE | 2023-04-27 23:51 | ED ---
SOB HPI - General Chief Complaint: Shortness of Breath Stated Complaint: Difficulty Breathing Time Seen by Provider: 04/27/23 23:35 Source: patient Mode of arrival: ambulatory Limitations: no limitations - History of Present Illness Initial Comments: Patient is a 62-year-old woman with history of COPD who presents to have evaluation for dyspnea. Patient states that her symptoms had started on April 17. She had some upper respiratory symptoms which then went to her chest. She was seen by her pipe inspector Dr. Sotelo. Patient states she was given prescription for steroids and has taken 2 days of this, as well as Bactrim which she has been taking as well. The patient continues to have shortness of breath. She is having cough with some sputum, as well as fever and chills. MD Complaint: shortness of breath, cough Onset/Timin -: days(s) Consistency: constant Improves With: nothing Worsens With: nothing Known History Of: COPD Context: recent URI Associated Symptoms: fever, cough, sputum production Treatments Prior to Arrival: bronchodilator, other - Related Data Home Oxygen Therapy: No Home Medications Medication Instructions Recorded Confirmed Aspirin 81 mg PO W/SUPPER 04/18/14 04/28/23 Ipratropium-Albuterol Nebulize 3 ml INHALATION RT-QID 04/18/14 04/28/23 [Duoneb 0.5 mg-3 mg/3 ml Soln] Metoprolol Succinate (ER) [Toprol 25 mg PO W/SUPPER 04/18/14 04/28/23 XL] Nitroglycerin Sl Tabs [Nitrostat] 0.4 mg SL Q5M PRN 04/18/14 04/28/23 Ubidecarenone [Coenzyme Q10] 100 mg PO DAILY 04/18/14 04/28/23 Multivitamins, Thera [Multivitamin 1 tab PO DAILY 03/19/17 04/28/23 (formulary)] Ipratropium/Albuterol Sulfate 1 puff INHALATION RT-QID PRN 05/28/17 04/28/23 [Combivent Respimat Inhaler] Albuterol Sulfate [Proair Hfa] 1 - 2 puff INHALATION RT-Q6H PRN 01/24/21 04/28/23 Omeprazole 40 mg PO DAILY 01/24/21 04/28/23 Albuterol Nebulized [Ventolin 2.5 mg INHALATION RT-QID PRN 10/11/22 04/28/23 Nebulized] Ascorbic Acid [Vitamin C] 1,000 mg PO DAILY 10/11/22 04/28/23 Cholecalciferol [Vitamin D3 (125 125 mcg PO DAILY 10/11/22 04/28/23 Mcg = 5000 Iu)] Furosemide [Lasix] 20 mg PO DAILY PRN 10/11/22 04/28/23 Magnesium Oxide [Mag-Ox] 400 mg PO HS 10/11/22 04/28/23 Melatonin 10 mg PO HS PRN 10/11/22 04/28/23 Previous Rx's Medication Instructions Recorded Budesonide [Pulmicort] 0.5 mg INHALATION RT-BID #60 each 05/03/23 predniSONE [Deltasone] See Rx Instructions .ROUTE 05/03/23 .COMPLEX #15 tab Allergies Allergy/AdvReac Type Severity Reaction Status Date / Time terconazole [From Terazol 3] Allergy Rash/Hives Verified 04/28/23 06:54 codeine AdvReac Unknown Nausea & Verified 04/28/23 06:54 Vomiting hydrocodone [From Vicodin] AdvReac Unknown Nausea & Verified 04/28/23 06:54 Vomiting amoxicillin [Amoxicillin] AdvReac Nausea & Verified 04/28/23 06:54 Vomiting amoxicillin trihydrate AdvReac Rapid Verified 04/28/23 06:54 [From Augmentin] Heart Rate megestrol acetate AdvReac adrenal Verified 04/28/23 06:54 [From Megace] insufficiency nitrofurantoin AdvReac Nausea & Verified 04/28/23 06:54 Vomiting nitrofurantoin AdvReac Nausea & Verified 04/28/23 06:54 macrocrystalline Vomiting [From Macrobid] potassium clavulanate AdvReac Rapid Verified 04/28/23 06:54 [From Augmentin] Heart Rate Ovxlfeg-CAM-NvI Reductase AdvReac muscle Verified 04/28/23 06:54 Inhibitor cramps [Mjpnlvf-Vmo-Uim Reductase Inhibitor] sumatriptan [From Imitrex] AdvReac Rapid Verified 04/28/23 06:54 Heart Rate sumatriptan succinate AdvReac Rapid Verified 04/28/23 06:54 [From Imitrex] Heart Rate pnuemonia injection Allergy Anaphylaxis Uncoded 04/28/23 06:54 Review of Systems ROS Statement: Those systems with pertinent positive or pertinent negative responses have been documented in the HPI. ROS Other: All systems not noted in ROS Statement are negative. Constitutional: Reports: fever. Denies: weakness ENT: Reports: congestion Respiratory: Reports: cough, dyspnea, wheezes Cardiovascular: Denies: chest pain, palpitations, orthopnea, edema, syncope Gastrointestinal: Denies: abdominal pain, nausea, vomiting, diarrhea Genitourinary: Denies: dysuria, hematuria Musculoskeletal: Denies: back pain Skin: Denies: rash Neurological: Denies: headache, weakness Past Medical History Past Medical History: COPD, Fibromyalgia, GERD/Reflux, Hypertension, Myocardial Infarction (IN), Musculoskeletal Disorder, Osteoarthritis (OA) Additional Past Medical History / Comment(s): BUSTER daughter, Raynauds disease, past hx. of adrenal insufficiency, Herniated discs , back pain, migraines, IBS, rheumatoid factor positive Last Myocardial Infarction Date:: 07/2006 History of Any Multi-Drug Resistant Organisms: None Reported Past Surgical History: Appendectomy, Breast Surgery, Section, Chika cystectomy, Heart Catheterization With Stent, Hernia Repair, Tonsillectomy Additional Past Surgical History / Comment(s): cardiac stent x2, abdominal laparoscopy x5, abd. surgery for adhesions, breast augmentation, blepharoplasty, umbilical hernia. Past Anesthesia/Blood Transfusion Reactions: Previous Problems w/ Anesthesia, Motion Sickness Additional Past Anesthesia/Blood Transfusion Reaction / Comment(s): slow to wake up @times, MIGRAINES. Date of Last Stent Placement:: 2006 Past Psychological History: Anxiety Smoking Status: Former smoker Past Alcohol Use History: Occasional Past Drug Use History: None Reported - Past Family History Mother Additional Family Medical History / Comment(s): EMPHYSEMA, possible lung cancer General Exam Limitations: no limitations General appearance: alert, anxious, in distress (There is mild tachypnea) Head exam: Present: atraumatic, normocephalic Eye exam: Present: normal appearance. Absent: scleral icterus, conjunctival injection Neck exam: Present: normal inspection, full ROM Respiratory exam: Present: respiratory distress (Mild tachypnea), wheezes. Absent: rales, rhonchi, stridor, accessory muscle use Cardiovascular Exam: Present: regular rate, normal rhythm, normal heart sounds. Absent: systolic murmur, diastolic murmur, rubs, gallop GI/Abdominal exam: Present: soft. Absent: distended, tenderness, guarding, rebound, rigid, mass Extremities exam: Present: normal inspection, normal capillary refill. Absent: pedal edema, calf tenderness Back exam: Present: normal inspection. Absent: CVA tenderness (R), CVA tender ness (L) Neurological exam: Present: alert Skin exam: Present: warm, dry, intact, normal color. Absent: rash Course Vital Signs 04/27/23 04/27/23 04/28/23 23 23:50 00:14 Temperature 97.6 F Pulse Rate 91 90 Respiratory 26 H 34 H 24 Rate Blood Pressure 154/80 129/74 O2 Sat by Pulse 96 97 Oximetry 04/28/23 04/28/23 04/28/23 00:36 00:39 01:02 Temperature Pulse Rate 74 64 Respiratory 18 Rate Blood Pressure 115/42 O2 Sat by Pulse 87 L 93 L Oximetry 04/28/23 04/28/23 04/28/23 01:15 03:00 04:03 Temperature Pulse Rate 71 81 87 Respiratory 20 Rate Blood Pressure 125/66 O2 Sat by Pulse 98 Oximetry 04/28/23 04/28/23 04:14 05:00 Temperature 98.5 F Pulse Rate 79 82 Respiratory 16 Rate Blood Pressure 128/68 O2 Sat by Pulse 94 L Oximetry Medical Decision Making - Medical Decision Making The patient had chest x-ray which I interpreted as negative for acute infiltrate, pneumothorax, congestive heart failure The patient had CT of the chest which I interpreted as negative for acute pulmonary embolism. Was pt. sent in by a medical professional or institution (, PA, DIRECTOR INFORMATION, urgent care, hospital, or detention...) When possible be specific @ -[No] Did you speak to anyone other than the patient for history (EMS, parent, family, police, friend...)? What history was obtained from this source @ -[No] Did you review nursing and triage notes (agree or disagree)? Why? @ -[I reviewed and agree with nursing and triage notes] Were old charts reviewed (outside hosp., previous admission, EMS record, old EKG, old radiological studies, urgent care reports/EKG's, detention records)? Report findings @ -[No old charts were reviewed] Differential Diagnosis (chest pain, altered mental status, abdominal pain women, abdominal pain men, vaginal bleeding, weakness, fever, dyspnea, syncope, headache, dizziness, GI bleed, back pain, seizure, CVA, palpatations, mental health, musculoskeletal)? @ -[Differential Dyspnea: Coronary syndrome, arrhythmia, tamponade, asthma, COPD, pulmonary embolism, pneumonia, pneumothorax, pulmonary effusion, anaphylaxis, diabetic ketoacidosis, flailed chest, pulmonary contusion, diaphragmatic rupture, anemia, neuromuscular, this is not meant to be an all-inclusive list. EKG interpreted by me (3pts min.). @ -[As above] X-rays interpreted by me (1pt min.). @ -[I interpreted as above CT interpreted by me (1pt min.). @ -[I interpreted as above U/S interpreted by me (1pt. min.). @ -[None done] What testing was considered but not performed or refused? (CT, X-rays, U/S, labs)? Why? @ -[None] What meds were considered but not given or refused? Why? @ -[None] Did you discuss the management of the patient with other professionals (professionals i.e. , PA, DIRECTOR INFORMATION, lab, RT, psych nurse, professor of social work, implementation coordinator, teacher, court officer, director case management)? Give summary @ -[Case discussed with admitting physician Was smoking cessation discussed for >3mins.? @ -[No] Was critical care preformed (if so, how long)? @ -[No] Were there social determinants of health that impacted care today? How? (Homelessness, low income, unemployed, alcoholism, drug addiction, transportation, low edu. Level, literacy, decrease access to med. care, intermediate, rehab)? @ -[No] Was there de-escalation of care discussed even if they declined (Discuss DNR or withdrawal of care, Hospice)? DNR status @ -[No] What co-morbidities impacted this encounter? (DM, HTN, Smoking, COPD, CAD, Cancer, CVA, ARF, Chemo, Hep., AIDS, mental health diagnosis, sleep apnea, morbid obesity)? @ -[COPD Was patient admitted / discharged? Hospital course, mention meds given and route, prescriptions, significant lab abnormalities, going to OR and other pertinent info. @ -[Patient is 62-year-old woman with history of COPD who arrives to have evaluation for shortness of breath. The patient will be admitted to have further treatment for COPD exacerbation Undiagnosed new problem with uncertain prognosis? @ -[No] Drug Therapy requiring intensive monitoring for toxicity (Heparin, Nitro, Insuli n, Cardizem)? @ -[No] Were any procedures done? @ -[No] Diagnosis/symptom? @ -Acute exacerbation of COPD Acute, or Chronic, or Acute on Chronic? @ -[Acute on chronic Uncomplicated (without systemic symptoms) or Complicated (systemic symptoms)? @ -[Uncomplicated Side effects of treatment? @ -[No] Exacerbation, Progression, or Severe Exacerbation? @ -[Exacerbation Poses a threat to life or bodily function? How? (Chest pain, [place], IN, pneumonia, PE, COPD, DKA, ARF, appy, cholecystitis, CVA, Diverticulitis, Homicidal, Suicidal, threat to staff... and all critical care pts) @ -[No] - Lab Data Result diagrams: 04/28/23 00:06 04/29/23 08:02 Lab Results 04/28/23 04/28/23 04/28/23 Range/Units 00:06 00:06 00:06 WBC 10.3 (3.8-10.6) k/uL RBC 4.93 (3.80-5.40) m/uL Hgb 14.6 (11.4-16.0) gm/dL Hct 44.8 (34.0-46.0) % MCV 90.9 (80.0-100.0) fL MCH 29.7 (25.0-35.0) pg MCHC 32.7 (31.0-37.0) g/dL RDW 13.1 (11.5-15.5) % Plt Count 287 (150-450) k/uL MPV 8.2 Neutrophils % 78 % Lymphocytes % 14 % Monocytes % 5 % Eosinophils % 1 % Basophils % 0 % Neutrophils # 8.1 H (1.3-7.7) k/uL Lymphocytes # 1.5 (1.0-4.8) k/uL Monocytes # 0.6 (0-1.0) k/uL Eosinophils # 0.1 (0-0.7) k/uL Basophils # 0.0 (0-0.2) k/uL PT 9.9 L (10.0-12.5) sec INR 0.9 (<1.2) APTT 24.4 (22.0-30.0) sec D-Dimer 1.13 H (<0.60) mg/L FEU Sodium 142 (137-145) mmol/L Potassium 4.0 (3.5-5.1) mmol/L Chloride 110 H (98-107) mmol/L Carbon Dioxide 17 L (22-30) mmol/L Anion Gap 15 mmol/L BUN 19 H (7-17) mg/dL Creatinine 0.89 (0.52-1.04) mg/dL Est GFR (CKD-EPI)AfAm 81 (>60 ml/min/1.73 sqM) Est GFR (CKD-EPI)NonAf 70 (>60 ml/min/1.73 sqM) Glucose 118 H (74-99) mg/dL Lactic Ac Sepsis Rflx Plasma Lactic Acid Neftali (0.7-2.0) mmol/L Calcium 9.6 (8.4-10.2) mg/dL Magnesium 2.1 (1.6-2.3) mg/dL Total Bilirubin 0.4 (0.2-1.3) mg/dL AST 25 (14-36) U/L ALT 26 (4-34) U/L Alkaline Phosphatase 93 (38-126) U/L Troponin I (0.000-0.034) ng/mL NT-Pro-B Natriuret Pep 153 pg/mL Total Protein 6.7 (6.3-8.2) g/dL Albumin 3.9 (3.5-5.0) g/dL Procalcitonin (0.02-0.09) ng/mL Urine Color Urine Appearance (Clear) Urine pH (5.0-8.0) Ur Specific [place] (1.001-1.035) Urine Protein (Negative) Urine Glucose (UA) (Negative) Urine Ketones (Negative) Urine Blood (Negative) Urine Nitrite (Negative) Urine Bilirubin (Negative) Urine Urobilinogen (<2.0) mg/dL Ur Leukocyte Esterase (Negative) 04/28/23 04/28/23 04/28/23 Range/Units 00:06 00:06 00:06 WBC (3.8-10.6) k/uL RBC (3.80-5.40) m/uL Hgb (11.4-16.0) gm/dL Hct (34.0-46.0) % MCV (80.0-100.0) fL MCH (25.0-35.0) pg MCHC (31.0-37.0) g/dL RDW (11.5-15.5) % Plt Count (150-450) k/uL MPV Neutrophils % % Lymphocytes % % Monocytes % % Eosinophils % % Basophils % % Neutrophils # (1.3-7.7) k/uL Lymphocytes # (1.0-4.8) k/uL Monocytes # (0-1.0) k/uL Eosinophils # (0-0.7) k/uL Basophils # (0-0.2) k/uL PT (10.0-12.5) sec INR (<1.2) APTT (22.0-30.0) sec D-Dimer (<0.60) mg/L FEU Sodium (137-145) mmol/L Potassium (3.5-5.1) mmol/L Chloride (98-107) mmol/L Carbon Dioxide (22-30) mmol/L Anion Gap mmol/L BUN (7-17) mg/dL Creatinine (0.52-1.04) mg/dL Est GFR (CKD-EPI)AfAm (>60 ml/min/1.73 sqM) Est GFR (CKD-EPI)NonAf (>60 ml/min/1.73 sqM) Glucose (74-99) mg/dL Lactic Ac Sepsis Rflx Plasma Lactic Acid Neftali 3.0 H* (0.7-2.0) mmol/L Calcium (8.4-10.2) mg/dL Magnesium (1.6-2.3) mg/dL Total Bilirubin (0.2-1.3) mg/dL AST (14-36) U/L ALT (4-34) U/L Alkaline Phosphatase (38-126) U/L Troponin I <0.012 (0.000-0.034) ng/mL NT-Pro-B Natriuret Pep pg/mL Total Protein (6.3-8.2) g/dL Albumin (3.5-5.0) g/dL Procalcitonin 0.02 (0.02-0.09) ng/mL Urine Color Urine Appearance (Clear) Urine pH (5.0-8.0) Ur Specific [place] (1.001-1.035) Urine Protein (Negative) Urine Glucose (UA) (Negative) Urine Ketones (Negative) Urine Blood (Negative) Urine Nitrite (Negative) Urine Bilirubin (Negative) Urine Urobilinogen (<2.0) mg/dL Ur Leukocyte Esterase (Negative) 04/28/23 04/28/23 Range/Units 01:20 01:37 WBC (3.8-10.6) k/uL RBC (3.80-5.40) m/uL Hgb (11.4-16.0) gm/dL Hct (34.0-46.0) % MCV (80.0-100.0) fL MCH (25.0-35.0) pg MCHC (31.0-37.0) g/dL RDW (11.5-15.5) % Plt Count (150-450) k/uL MPV Neutrophils % % Lymphocytes % % Monocytes % % Eosinophils % % Basophils % % Neutrophils # (1.3-7.7) k/uL Lymphocytes # (1.0-4.8) k/uL Monocytes # (0-1.0) k/uL Eosinophils # (0-0.7) k/uL Basophils # (0-0.2) k/uL PT (10.0-12.5) sec INR (<1.2) APTT (22.0-30.0) sec D-Dimer (<0.60) mg/L FEU Sodium (137-145) mmol/L Potassium (3.5-5.1) mmol/L Chloride (98-107) mmol/L Carbon Dioxide (22-30) mmol/L Anion Gap mmol/L BUN (7-17) mg/dL Creatinine (0.52-1.04) mg/dL Est GFR (CKD-EPI)AfAm (>60 ml/min/1.73 sqM) Est GFR (CKD-EPI)NonAf (>60 ml/min/1.73 sqM) Glucose (74-99) mg/dL Lactic Ac Sepsis Rflx Y Plasma Lactic Acid Neftali (0.7-2.0) mmol/L Calcium (8.4-10.2) mg/dL Magnesium (1.6-2.3) mg/dL Total Bilirubin (0.2-1.3) mg/dL AST (14-36) U/L ALT (4-34) U/L Alkaline Phosphatase (38-126) U/L Troponin I (0.000-0.034) ng/mL NT-Pro-B Natriuret Pep pg/mL Total Protein (6.3-8.2) g/dL Albumin (3.5-5.0) g/dL Procalcitonin (0.02-0.09) ng/mL Urine Color Yellow Urine Appearance Clear (Clear) Urine pH 6.0 (5.0-8.0) Ur Specific [place] 1.025 (1.001-1.035) Urine Protein Negative (Negative) Urine Glucose (UA) Negative (Negative) Urine Ketones Negative (Negative) Urine Blood Negative (Negative) Urine Nitrite Negative (Negative) Urine Bilirubin Negative (Negative) Urine Urobilinogen <2.0 (<2.0) mg/dL Ur Leukocyte Esterase Negative (Negative) - EKG Data -: EKG Interpreted by [facility] EKG shows normal: sinus rhythm (With occasional PVC, rate 85 bpm), axis (Normal), intervals (Normal), QRS complexes (Normal) Interpretation: nonspecific ST-T wave changes Disposition Clinical Impression: COPD exacerbation Disposition: ADMITTED IP TO THIS HOSP Condition: Good Is patient prescribed a controlled substance at d/c from ED?: No
[2023-04-27] MEDS ORDERED: IPRATROPIUM-ALBUTEROL 3 ML NEB INHALATION STA (23:57)
[2023-04-28 00:24] LABS: Basophils % (A) 0 %; Eosinophils # (A) 0.1 k/uL (0-0.7); Eosinophils % (A) 1 %; HCT 44.8 % (34.0-46.0); HGB 14.6 gm/dL (11.4-16.0); Lymphocytes # (A) 1.5 k/uL (1.0-4.8); Lymphocytes % (A) 14 %; MCH 29.7 pg (25.0-35.0); MCHC 32.7 g/dL (31.0-37.0); MCV 90.9 fL (80.0-100.0); Mean Platelet Volume 8.2; Monocytes # (A) 0.6 k/uL (0-1.0); Monocytes % (A) 5 %; Neutrophils # (A) 8.1 k/uL (1.3-7.7); Neutrophils % (A) 78 %; Platelet Count 287 k/uL (150-450); RBC 4.93 m/uL (3.80-5.40); RDW 13.1 % (11.5-15.5); WBC 10.3 k/uL (3.8-10.6)
[2023-04-28 00:31] LABS: ALT 26 U/L (4-34); AST 25 U/L (14-36); African American GFR (CKD) 81 (>60 ml/min/1.73 sqM); Albumin 3.9 g/dL (3.5-5.0); Alkaline Phosphatase 93 U/L (38-126); Anion Gap 15 mmol/L; Blood Urea Nitrogen 19 mg/dL (7-17); Calcium 9.6 mg/dL (8.4-10.2); Carbon Dioxide 17 mmol/L (22-30); Chloride 110 mmol/L (98-107); Glucose 118 mg/dL (74-99); Magnesium 2.1 mg/dL (1.6-2.3); Non-African American GFR(CKD) 70 (>60 ml/min/1.73 sqM); Sodium 142 mmol/L (137-145); Total Bilirubin 0.4 mg/dL (0.2-1.3); Total Protein 6.7 g/dL (6.3-8.2)
[2023-04-28 00:34] LABS: INR 0.9 (<1.2); Partial Thromboplastin Time 24.4 sec (22.0-30.0); Prothrombin Time 9.9 sec (10.0-12.5)
[2023-04-28 00:40] LABS: NT-Pro-B-Type Natriuretic Pept 153 pg/mL
[2023-04-28] MEDS ORDERED: SODIUM CHLORIDE 0.9% 1,000 ML IV ONE (01:21)
[2023-04-28] MEDS ORDERED: AZITHROMYCIN 500 MG TAB PO STA (01:22)
--- NOTE | 2023-04-28 01:40 | XR ---
EXAM: XR Chest, 2 Views CLINICAL HISTORY: ITS.REASON XR Reason: difficulty breathing TECHNIQUE: Frontal and lateral views of the chest. COMPARISON: CT dated 02/18/2023 FINDINGS: Lungs: Hyperinflation. Mild streaky atelectasis or scarring in the left upper lobe similar to the prior, somewhat obscured by overlying leads. No focal consolidation. Pleural space: Unremarkable. No pneumothorax. Heart: Unremarkable. No cardiomegaly. Mediastinum: Unremarkable. Bones/joints: Degenerative changes of the spine. IMPRESSION: Hyperinflation correlates with emphysematous changes as seen on the CT. Mild streaky atelectasis or scarring in the left upper lobe similar to the prior, somewhat obscured by overlying leads. No focal consolidation.
[2023-04-28 01:43] LABS: Appearance,Urine Clear (Clear); Bilirubin,Urine Negative (Negative); Blood,Urine Negative (Negative); Color,Urine Yellow; Glucose,Urine (UA) Negative (Negative); Ketones,Urine Negative (Negative); Leukocyte Esterase,Urine Negative (Negative); Nitrite,Urine Negative (Negative); Protein,Urine Negative (Negative); Specific Gravity,Urine 1.025 (1.001-1.035); Urobilinogen,Urine <2.0 mg/dL (<2.0)
--- NOTE | 2023-04-28 02:27 | CT ---
EXAM: CT Angiography Chest With Intravenous Contrast CLINICAL HISTORY: ITS.REASON CT Reason: dyspnea, possible PE TECHNIQUE: Axial computed tomographic angiography images of the chest with intravenous contrast. CTDI is 12.4 mGy and DLP is 360.5 mGy-cm. This CT exam was performed using one or more of the following dose reduction techniques: automated exposure control, adjustment of the mA and/or kV according to patient size, and/or use of iterative reconstruction technique. MIP reconstructed images were created and reviewed. COMPARISON: CT dated 02/18/2023 FINDINGS: Pulmonary arteries: Unremarkable. No pulmonary embolism. Aorta: Minimal aortic calcifications. No thoracic aortic aneurysm. Lungs: Moderate centrilobular emphysema. Streaky atelectasis or scarring in the left upper lobe similar to the prior. Mild bibasilar atelectasis. No mass. Pleural space: Unremarkable. No significant effusion. No pneumothorax. Heart: Unremarkable. No cardiomegaly. No significant pericardial effusion. No evidence of RV dysfunction. Bones/joints: Degenerative changes of the spine. No acute fracture. No dislocation. Soft tissues: Bilateral breast implants. Lymph nodes: Unremarkable. No enlarged lymph nodes. Gallbladder and bile ducts: Cholecystectomy. IMPRESSION: 1. No evidence of pulmonary embolism. 2. Moderate centrilobular emphysema. Stable streaky atelectasis or scarring in the left upper lobe.
[2023-04-28] MEDS ORDERED: ALBUTEROL NEBULIZED 2.5 MG/3 ML INHALATION STA (02:54)
[2023-04-28] MEDS ORDERED: predniSONE 20 MG TAB PO STA (02:54)
[2023-04-28] MEDS ORDERED: IPRATROPIUM-ALBUTEROL 3 ML NEB INHALATION PRN (04:22)
[2023-04-28] MEDS ORDERED: ACETAMINOPHEN TAB 325 MG TAB PO PRN (04:22)
[2023-04-28] MEDS ORDERED: NALOXONE 0.4 MG/ML 1 ML VIAL IVP PRN (04:22)
--- NOTE | 2023-04-28 06:44 | P.HPIM ---
History of Present Illness H&P Date: 04/28/23 Chief Complaint: shortness of breath 62-year-old female with coronary artery disease status post stents, COPD on 2 L oxygen at home Patient coming in due to worsening shortness of breath today where she was short of breath even sitting down doing nothing feeling very tight in the chest and wheezy she started having panic attack and decided to come in for evaluation. Patient reports that since April 17 she was having episodes of fevers and generalized weakness with worsening of her baseline cough associated with increase in the amount of sputum with flecks of blood and sometimes black gunk. She stayed at home as she was feeling very sick denies any associated nausea vomiting or diarrhea denies any associated sore throat or abdominal pain. After 6 days of the symptoms she decided to contact her respiratory doctor seeking help who prescribed Bactrim and prednisone she started taking them on last Friday however over the weekend her symptoms continued to worsen and progress for which she decided to come in today. She denies any recent travel her hospital stay she denies any known sick contacts she claims that she avoids going to any large gathering or going out to if unnecessary. She denies tobacco smoking or illicit drugs she denies any heavy alcohol she admits to nicotine gum review of systems Pertinent positives as noted in HPI. All other systems were reviewed and are negative on exam Constitutional: No acute distress, conversant Eyes: Anicteric sclerae, moist conjunctiva, Pupils equal round reactive to light ENMT: NC/AT Oropharynx clear, no erythema, or exudates Neck: Supple, no masses, or JVD No carotid bruits No thyromegaly Lungs: Diminished breath sounds expiratory wheezing Clear to percussion Using accessory muscles of respiration Cardiovascular: Distant Heart sounds regular in rate and rhythm, No murmurs, gallops, or rubs No peripheral edema Abdominal: Soft Nontender, no guarding, rebound or rigidity Abdomen moving with respiration Normoactive bowel sounds No hepatomegaly, No splenomegaly No palpable mass No abdominal wall hernia noted Extremities: No digital cyanosis No clubbing Pedal pulses intact and symmetrical Radial pulses intact and symmetrical No calf tenderness Psychiatric: Alert and oriented to person, place and time Appropriate affect fair judgement Neuro Muscles Strength 5/5 in all 4 extremities Sensation to light touch grossly present throughout Cranial nerves II-XII grossly intact Lymphatics: no palpable cervical or supraclavicular lymph nodes Past Medical History Past Medical History: COPD, Fibromyalgia, GERD/Reflux, Hypertension, Myocardial Infarction ([place]), Musculoskeletal Disorder, Osteoarthritis (OA) Additional Past Medical History / Comment(s): BUSTER daughter, Raynauds disease, past hx. of adrenal insufficiency, Herniated discs , back pain, migraines, IBS, rheumatoid factor positive Last Myocardial Infarction Date:: 07/2006 History of Any Multi-Drug Resistant Organisms: None Reported Past Surgical History: Appendectomy, Breast Surgery, Section, Cholecystectomy, Heart Catheterization With Stent, Hernia Repair, Tonsillectomy Additional Past Surgical History / Comment(s): cardiac stent x2, abdominal laparoscopy x5, abd. surgery for adhesions, breast augmentation, blepharoplasty, umbilical hernia. Past Anesthesia/Blood Transfusion Reactions: Previous Problems w/ Anesthesia, Motion Sickness Additional Past Anesthesia/Blood Transfusion Reaction / Comment(s): slow to wake up @times, MIGRAINES. Date of Last Stent Placement:: 2006 Past Psychological History: Anxiety Smoking Status: Former smoker Past Alcohol Use History: Occasional Additional Past Alcohol Use History / Comment(s): quit smoking 2006, smoked for 30 yrs. Past Drug Use History: None Reported - Past Family History Mother Additional Family Medical History / Comment(s): EMPHYSEMA, possible lung cancer Medications and Allergies Home Medications Medication Instructions Recorded Confirmed Type Aspirin 81 mg PO DAILY 04/18/14 10/11/22 History Ipratropium-Albuterol Nebulize 3 ml INHALATION RT-QID 04/18/14 10/11/22 History [Duoneb 0.5 mg-3 mg/3 ml Soln] Metoprolol Succinate (ER) [Toprol 25 mg PO DAILY 04/18/14 10/11/22 History XL] Nitroglycerin Sl Tabs [Nitrostat] 0.4 mg SL Q5M PRN 04/18/14 10/11/22 History Ubidecarenone [Coenzyme Q10] 100 mg PO DAILY 04/18/14 10/11/22 History Cyclobenzaprine [Flexeril] 10 mg PO TID PRN 04/12/15 10/11/22 History Multivitamins, Thera [Multivitamin 1 tab PO DAILY 03/19/17 10/11/22 History (formulary)] Ipratropium/Albuterol Sulfate 1 puff INHALATION RT-QID PRN 05/28/17 10/11/22 History [Combivent Respimat Inhaler] Albuterol Sulfate [Proair Hfa] 1 - 2 puff INHALATION RT-Q6H PRN 01/24/21 10/11/22 History Fluticasone Propion/Salmeterol 2 puff INHALATION RT-BID 01/24/21 10/11/22 History [Advair Hfa 230-21 Mcg Inhaler] Omeprazole 40 mg PO DAILY 01/24/21 10/11/22 History Albuterol Nebulized [Ventolin 2.5 mg INHALATION RT-QID PRN 10/11/22 10/11/22 History Nebulized] Ascorbic Acid [Vitamin C] 1,000 mg PO DAILY 10/11/22 10/11/22 History Cholecalciferol [Vitamin D3 (125 125 mcg PO DAILY 10/11/22 10/11/22 History Mcg = 5000 Iu)] Furosemide [Lasix] 20 mg PO DAILY PRN 10/11/22 10/11/22 History Magnesium Oxide [Mag-Ox] 400 mg PO HS 10/11/22 10/11/22 History Melatonin 10 mg PO HS PRN 10/11/22 10/11/22 History Levofloxacin [Levaquin] 500 mg PO DAILY 2 Days #2 tab 10/14/22 Rx predniSONE See Taper PO DIRECTED #30 tab 10/14/22 Rx Allergies Allergy/AdvReac Type Severity Reaction Status Date / Time amoxicillin [Amoxicillin] Allergy Nausea & Verified 04/27/23 23:28 Vomiting amoxicillin trihydrate Allergy Rapid Verified 04/27/23 23:28 [From Augmentin] Heart Rate megestrol acetate Allergy adrenal Verified 04/27/23 23:28 [From Megace] insufficiency potassium clavulanate Allergy Rapid Verified 04/27/23 23:28 [From Augmentin] Heart Rate terconazole [From Terazol 3] Allergy Rash/Hives Verified 04/27/23 23:28 codeine AdvReac Unknown Nausea & Verified 04/27/23 23:28 Vomiting hydrocodone [From Vicodin] AdvReac Unknown Nausea & Verified 04/27/23 23:28 Vomiting nitrofurantoin AdvReac Unknown Verified 04/27/23 23:28 nitrofurantoin AdvReac Nausea & Verified 04/27/23 23:28 macrocrystalline Vomiting [From Macrobid] Fbynmjx-ALA-QiG Reductase AdvReac muscle Verified 04/27/23 23:28 Inhibitor cramps [Ttdfxjn-Fku-Avz Reductase Inhibitor] sumatriptan [From Imitrex] AdvReac Rapid Verified 04/27/23 23:28 Heart Rate sumatriptan succinate AdvReac Rapid Verified 04/27/23 23:28 [From Imitrex] Heart Rate pnuemonia injection Allergy Anaphylaxis Uncoded 04/27/23 23:28 Physical Exam Vitals: Vital Signs Temp Pulse Pulse Resp BP BP Pulse Ox 04/28/23 06:05 97.5 F L 81 18 139/62 92 L 04/28/23 05:00 98.5 F 82 16 128/68 94 L 04/28/23 04:14 79 04/28/23 04:03 87 04/28/23 03:00 81 20 125/66 98 04/28/23 01:15 71 04/28/23 01:02 64 04/28/23 00:39 93 L 04/28/23 00:36 74 18 115/42 87 L 04/28/23 00:14 24 04/27/23 23:50 90 34 H 129/74 97 04/27/23 23:23 97.6 F 91 26 H 154/80 96 Intake and Output 04/27/23 04/27/23 04/28/23 14:59 22:59 06:59 Other: Weight 81.647 kg Results CBC & Chem 7: 04/28/23 00:06 04/28/23 00:06 Labs: Abnormal Lab Results - Last 24 Hours (Table) 04/28/23 04/28/23 04/28/23 Range/Units 00:06 00:06 00:06 Neutrophils # 8.1 H (1.3-7.7) k/uL PT 9.9 L (10.0-12.5) sec D-Dimer 1.13 H (<0.60) mg/L FEU Chloride 110 H (98-107) mmol/L Carbon Dioxide 17 L (22-30) mmol/L BUN 19 H (7-17) mg/dL Glucose 118 H (74-99) mg/dL Plasma Lactic Acid Neftali (0.7-2.0) mmol/L 04/28/23 Range/Units 00:06 Neutrophils # (1.3-7.7) k/uL PT (10.0-12.5) sec D-Dimer (<0.60) mg/L FEU Chloride (98-107) mmol/L Carbon Dioxide (22-30) mmol/L BUN (7-17) mg/dL Glucose (74-99) mg/dL Plasma Lactic Acid Neftali 3.0 H* (0.7-2.0) mmol/L Assessment and Plan Assessment: 62-year-old female coming in for worsening shortness of breath following 1 week of worsening upper respiratory symptoms and fever, I discussed the case with the ED doctor and accepted the admission for acute COPD exacerbation with anticipated length of stay more than 2 midnights Acute COPD exacerbation Chronic hypoxic respiratory failure Continue supplemental oxygen as needed Patient declined testing for acute respiratory viral panel, keep patient on droplet precautions Monitor vital signs D-dimer elevated 1.13, CTA of the chest showed no acute pulmonary embolism, no infiltrates, showed left upper lung scarring which is chronic Continue with systemic by mouth steroids 40 mg prednisone daily DuoNeb scheduled and when necessary Azithromycin 500 mg by mouth daily Elevated lactic acid 3.0 upon follow-up 1.3 Troponin - negative at 0.01 EKG no acute ECG changes, positive PVCs Blood work showing white count 10.3, hemoglobin 14.6 Sodium 142 potassium 4.0 When necessary 19 creatinine 0.89 Chronic conditions Hypertension History of CAD status post stents Continue metoprolol, continue aspirin Verify home medications Full code DVT prophylaxis Lovenox 40 mg subcu daily
[2023-04-28] MEDS: METOPROLOL SUCCINATE (ER) 25 MG TAB.ER.24H PO SCH (08:51)
[2023-04-28] MEDS: ASPIRIN 81 MG PO SCH (08:51)
[2023-04-28] MEDS ORDERED: predniSONE 20 MG TAB PO SCH (09:00)
[2023-04-28] MEDS: IPRATROPIUM-ALBUTEROL 3 ML NEB INHALATION SCH ×4 (09:00→19:46)
[2023-04-28] MEDS: SYMBICORT 160-4.5 MCG INHALER INHALATION SCH ×2 (09:00→19:46)
[2023-04-28] MEDS ORDERED: ALPRAZolam 0.5 MG TAB PO PRN (12:16)
[2023-04-28] MEDS: ENOXAPARIN 40 MG/0.4 ML SYRINGE SQ SCH (12:31)
[2023-04-28] MEDS: methylPREDNISolone SOD SUCCI 125 MG/2 ML VIAL IV SCH ×3 (12:32→23:17)
--- NOTE | 2023-04-28 14:25 | P.CNPUL ---
History of Present Illness Consult date: 04/28/23 Reason for consult: dyspnea, COPD History of present illness: This is a pleasant 62-year-old female patient with a known history of COPD,hypertension, Raynaud's disease, coronary disease with previous stent placement 2, and chronic generalized anxiety. Chest has a history of oxygen dependent chronic obstructive pulmonary disease and is maintained on Advair and Combivent. her last hospital admission for COPD exacerbation was in September 2022. Patient is coming into the emergency department because of worsening shortness of breath. There is a second hospital admission for COPD for this patient. She is an ex-smoker. Obstructive sleep apnea maintained on CPAP at 12 cm water. Her FEV1 value 60% of predicted. She quit smoking in 2006. She follows with Dr. Sotelo in our office. note that during the patient's earlier admission, there is a questionable consolidation of the left upper lobe. Based on that, the patient was given a CT angiogram during this current admission. The CT showed no definitive pulmonary embolism. It showed emphysema, centrilobular and stable streaky atelectasis/scarring in the left upper lobe. her blood work shows a WBC count of 10.3, Hemoccult of 14.6, d-dimer is at 1.13, normal coagulation profile, sodium is 142, BUN is at 19 with a creatinine of 0.8, lactic acid level is at 3.0 dropped down to 1.3, LFTs are normal, UA is negative. The viral screen was also negative including influenza, Covid 19 and RSV. The patient has no specific complaints. No angina. No palpitations. No chest pain. No altered mentation. No pleurisy. No hemoptysis. No leg edema. Review of Systems CONSTITUTIONAL: Generalized weakness. Poor appetite. Denies any recent significant weight loss or weight gain. EYES: Denies change in vision. EARS, NOSE, MOUTH, THROAT: Denies headaches, denies sore throat. CARDIOVASCULAR: Denies chest pain, palpitations or syncopal episodes. RESPIRATORY: Positive for shortness of breath, cough, congestion no hemoptysis. GASTROINTESTINAL: Denies change in appetite, denies abdominal pain GENITOURINARY: Denies hematuria, denies infections. MUSKULOSKELETAL: Denies pain, denies swelling. INTEGUMENTARY: Denies rash, denies eczema. NEUROLOGICAL: Denies recent memory loss, no recent seizure activity. PSYCHIATRIC: Denies anxiety, denies depression. HEMATOLOGIC/LYMPHATIC: Denies anemia, denies enlarged lymph nodes. Past Medical History Past Medical History: COPD, Fibromyalgia, GERD/Reflux, Hypertension, Myocardial Infarction ([place]), Musculoskeletal Disorder, Osteoarthritis ([place]) Additional Past Medical History / Comment(s): BUSTER daughter, Raynauds disease, past hx. of adrenal insufficiency, Herniated discs , back pain, migraines, IBS, rheumatoid factor positive Last Myocardial Infarction Date:: 07/2006 History of Any Multi-Drug Resistant Organisms: None Reported Past Surgical History: Appendectomy, Breast Surgery, Section, Cholecystectomy, Heart Catheterization With Stent, Hernia Repair, Tonsillectomy Additional Past Surgical History / Comment(s): cardiac stent x2, abdominal laparoscopy x5, abd. surgery for adhesions, breast augmentation, blepharoplasty, umbilical hernia. Past Anesthesia/Blood Transfusion Reactions: Previous Problems w/ Anesthesia, Motion Sickness Additional Past Anesthesia/Blood Transfusion Reaction / Comment(s): slow to wake up @times, MIGRAINES. Date of Last Stent Placement:: 2006 Past Psychological History: Anxiety Smoking Status: Former smoker Past Alcohol Use History: Occasional Additional Past Alcohol Use History / Comment(s): quit smoking 2006, smoked for 30 yrs. Past Drug Use History: None Reported - Past Family History Mother Additional Family Medical History / Comment(s): EMPHYSEMA, possible lung cancer Medications and Allergies Home Medications Medication Instructions Recorded Confirmed Type Aspirin 81 mg PO W/SUPPER 04/18/14 04/28/23 History Ipratropium-Albuterol Nebulize 3 ml INHALATION RT-QID 04/18/14 04/28/23 History [Duoneb 0.5 mg-3 mg/3 ml Soln] Metoprolol Succinate (ER) [Toprol 25 mg PO W/SUPPER 04/18/14 04/28/23 History XL] Nitroglycerin Sl Tabs [Nitrostat] 0.4 mg SL Q5M PRN 04/18/14 04/28/23 History Ubidecarenone [Coenzyme Q10] 100 mg PO DAILY 04/18/14 04/28/23 History Multivitamins, Thera [Multivitamin 1 tab PO DAILY 03/19/17 04/28/23 History (formulary)] Ipratropium/Albuterol Sulfate 1 puff INHALATION RT-QID PRN 05/28/17 04/28/23 History [Combivent Respimat Inhaler] Albuterol Sulfate [Proair Hfa] 1 - 2 puff INHALATION RT-Q6H PRN 01/24/21 04/28/23 History Fluticasone Propion/Salmeterol 2 puff INHALATION RT-BID 01/24/21 04/28/23 History [Advair Hfa 230-21 Mcg Inhaler] Omeprazole 40 mg PO DAILY 01/24/21 04/28/23 History Albuterol Nebulized [Ventolin 2.5 mg INHALATION RT-QID PRN 10/11/22 04/28/23 History Nebulized] Ascorbic Acid [Vitamin C] 1,000 mg PO DAILY 10/11/22 04/28/23 History Cholecalciferol [Vitamin D3 (125 125 mcg PO DAILY 10/11/22 04/28/23 History Mcg = 5000 Iu)] Furosemide [Lasix] 20 mg PO DAILY PRN 10/11/22 04/28/23 History Magnesium Oxide [Mag-Ox] 400 mg PO HS 10/11/22 04/28/23 History Melatonin 10 mg PO HS PRN 10/11/22 04/28/23 History Ibuprofen [Advil] 400 mg PO Q6H PRN 04/28/23 04/28/23 History Sulfamethox-Tmp 800-160Mg [Bactrim 1 tab PO Q12HR 04/28/23 04/28/23 History DS 800-160 mg] predniSONE See Taper PO DIRECTED 04/28/23 04/28/23 History Allergies Allergy/AdvReac Type Severity Reaction Status Date / Time terconazole [From Terazol 3] Allergy Rash/Hives Verified 04/28/23 06:54 codeine AdvReac Unknown Nausea & Verified 04/28/23 06:54 Vomiting hydrocodone [From Vicodin] AdvReac Unknown Nausea & Verified 04/28/23 06:54 Vomiting amoxicillin [Amoxicillin] AdvReac Nausea & Verified 04/28/23 06:54 Vomiting amoxicillin trihydrate AdvReac Rapid Verified 04/28/23 06:54 [From Augmentin] Heart Rate megestrol acetate AdvReac adrenal Verified 04/28/23 06:54 [From Megace] insufficiency nitrofurantoin AdvReac Nausea & Verified 04/28/23 06:54 Vomiting nitrofurantoin AdvReac Nausea & Verified 04/28/23 06:54 macrocrystalline Vomiting [From Macrobid] potassium clavulanate AdvReac Rapid Verified 04/28/23 06:54 [From Augmentin] Heart Rate Hhfbvmq-QQK-GtK Reductase AdvReac muscle Verified 04/28/23 06:54 Inhibitor cramps [Agjsfnv-Ipu-Roo Reductase Inhibitor] sumatriptan [From Imitrex] AdvReac Rapid Verified 04/28/23 06:54 Heart Rate sumatriptan succinate AdvReac Rapid Verified 04/28/23 06:54 [From Imitrex] Heart Rate pnuemonia injection Allergy Anaphylaxis Uncoded 04/28/23 06:54 Physical Exam Vitals: Vital Signs Temp Pulse Pulse Resp BP BP BP 04/28/23 12:00 76 04/28/23 11:47 72 04/28/23 07:20 97.8 F 73 18 129/78 04/28/23 06:05 97.5 F L 81 18 139/62 04/28/23 05:00 98.5 F 82 16 128/68 04/28/23 04:14 79 04/28/23 04:03 87 04/28/23 03:00 81 20 125/66 04/28/23 01:15 71 04/28/23 01:02 64 04/28/23 00:39 04/28/23 00:36 74 18 115/42 04/28/23 00:14 24 04/27/23 23:50 90 34 H 129/74 04/27/23 23:23 97.6 F 91 26 H 154/80 Pulse Ox 04/28/23 12:00 04/28/23 11:47 04/28/23 07:20 95 04/28/23 06:05 92 L 04/28/23 05:00 94 L 04/28/23 04:14 04/28/23 04:03 04/28/23 03:00 98 04/28/23 01:15 04/28/23 01:02 04/28/23 00:39 93 L 04/28/23 00:36 87 L 04/28/23 00:14 04/27/23 23:50 97 04/27/23 23:23 96 Intake and Output 04/27/23 04/28/23 04/28/23 22:59 06:59 14:59 Intake Total 118 Balance 118 Intake: Oral 118 Other: Weight 81.647 kg GENERAL EXAM: Alert, pleasant 62-year-old female, on 3 L nasal cannula, comfortable in no apparent distress. HEAD: Normocephalic. EYES: Normal reaction of pupils, equal size. NOSE: Clear with pink turbinates. THROAT: No erythema or exudates. NECK: No masses, no JVD. CHEST: No chest wall deformity. LUNGS: Equal air entry with few scattered axillary wheezes throughout the lung segura bilaterally CVS: S1 and S2 normal with no audible murmur, regular rhythm. ABDOMEN: No hepatosplenomegaly, normal bowel sounds, no guarding or rigidity. SPINE: No scoliosis or deformity SKIN: No rashes CENTRAL NERVOUS SYSTEM: No focal deficits, tone is normal in all 4 extremities. EXTREMITIES: There is no peripheral edema. No clubbing, no cyanosis. Peripheral pulses are intact. Results - Laboratory Findings CBC and BMP: 04/28/23 00:06 04/28/23 00:06 PT/INR, D-dimer PT 9.9 sec (10.0-12.5) L 04/28/23 00:06 INR 0.9 (<1.2) 04/28/23 00:06 D-Dimer 1.13 mg/L FEU (<0.60) H 04/28/23 00:06 Abnormal lab findings: Abnormal Labs 04/28/23 04/28/23 04/28/23 00:06 00:06 00:06 Neutrophils # 8.1 H PT 9.9 L D-Dimer 1.13 H Chloride 110 H Carbon Dioxide 17 L BUN 19 H Glucose 118 H Plasma Lactic Acid Neftali 04/28/23 00:06 Neutrophils # PT D-Dimer Chloride Carbon Dioxide BUN Glucose Plasma Lactic Acid Neftali 3.0 H* - Diagnostic Findings Chest x-ray: image reviewed CT scan - chest: image reviewed Assessment and Plan Plan: acute exacerbation of chronic COPD with secondary shortness of breath Acute On chronic hypoxic respiratory failure currently on 3 L of oxygen by nasal cannula. CT angiogram of the chest showed COPD. No evidence of any pulmonary embolism. No evidence of any consolidation or masses or tumors. Chronic obstructive pulmonary disease with an FEV1 to 52% of predicted, oxygen dependent Former smoker, quit in 2006 Obstructive sleep apnea maintained on CPAP at 12 cm of water Coronary artery disease with previous stent placement 2 Raynaud's disease Fibromyalgia Hypertension Anxiety Plan continue current treatment including the bronchodilators and steroids Empiric antibiotic coverage with Zithromax Resume all medications Review of the CT angiogram of the chest and the patient was reassured Collect sputum Gram stain and culture We'll continue to follow
[2023-04-28] MEDS: PANTOPRAZOLE 40 MG TABLET PO SCH (20:31)
[2023-04-28] MEDS: AZITHROMYCIN 500 MG TAB PO SCH (20:31)
[2023-04-29] MEDS: methylPREDNISolone SOD SUCCI 125 MG/2 ML VIAL IV SCH ×4 (05:31→22:44)
[2023-04-29] MEDS: IPRATROPIUM-ALBUTEROL 3 ML NEB INHALATION SCH ×4 (08:07→19:48)
[2023-04-29] MEDS: SYMBICORT 160-4.5 MCG INHALER INHALATION SCH (08:08)
[2023-04-29] MEDS: PANTOPRAZOLE 40 MG TABLET PO SCH (08:21)
[2023-04-29] MEDS: ASPIRIN 81 MG PO SCH (08:21)
[2023-04-29] MEDS: METOPROLOL SUCCINATE (ER) 25 MG TAB.ER.24H PO SCH (08:21)
[2023-04-29] MEDS: ENOXAPARIN 40 MG/0.4 ML SYRINGE SQ SCH (08:22)
[2023-04-29 08:52] LABS: African American GFR (CKD) >90 (>60 ml/min/1.73 sqM); Anion Gap 8 mmol/L; Blood Urea Nitrogen 16 mg/dL (7-17); Calcium 9.4 mg/dL (8.4-10.2); Carbon Dioxide 23 mmol/L (22-30); Chloride 109 mmol/L (98-107); Glucose 117 mg/dL (74-99); Non-African American GFR(CKD) 80 (>60 ml/min/1.73 sqM); Potassium 4.5 mmol/L (3.5-5.1); Sodium 140 mmol/L (137-145)
--- NOTE | 2023-04-29 11:30 | P.PN ---
Subjective Progress Note Date: 04/29/23 Hospital Course: 62-year-old female with history of COPD, chronic hypoxic respiratory failure on 2 L at night, coronary artery disease status post stents presenting with COPD exacerbation. Currently saturating well on 3 L. On initial presentation, d- dimer was elevated to 1.13, bicarb 17, creatinine 0.89, troponin negative, proBNP 153, respiratory viral panel negative. CTA chest did not show any evidence of PE, moderate emphysema. Patient started on IV steroids and bronchodilators, pulmonology consulted. Subjective: Patient seen and examined at bedside. No acute events overnight. Breathing improved. Still having significant cough, nonproductive, associated with occasi onal chest pain. Pertinent positives and negatives as discussed above, a complete review of systems was performed and all other systems are negative. Vitals Signs Reviewed. General: nontoxic, no distress, appears at stated age Derm: warm, dry Head: atraumatic, normocephalic, symmetric Eyes: EOMI, no lid lag, anicteric sclera Mouth: no lip lesion, mucus membranes moist Cardiovascular: S1S2 reg, no murmur Lungs: Scattered wheezing , no accessory muscle use, supplemental oxygen Abdominal: soft, nontender to palpation, no guarding, no appreciable organomegaly Ext: no gross muscle atrophy, no edema, no contractures Neuro: CN II-XI grossly intact, no focal neuro deficits Psych: Alert, oriented, appropriate affect Data Reviewed Today: Pertinent Labs: Potassium 4.5, creatinine 0.8 Imaging: No new imaging Assessment and Plan: Active: Acute COPD exacerbation Acute on chronic hypoxic respiratory failure Elevated d-dimer -Pulmonology following -Remains on IV 60 mg Solu-Medrol every 6 hours -DuoNeb scheduled and when necessary, albuterol when necessary, formeterol twice a day, Pulmicort twice a day -CTA negative for PE -Continue weaning oxygen Resolved: Metabolic acidosis Chronic: CAD DVT ppx: Lovenox Code status: Full code Anticipated discharge place: Home Anticipated discharge time: 1-2 days Objective - Vital Signs Vital signs: Vital Signs Temp 98 F 04/29/23 07:00 Pulse 72 04/29/23 08:21 Resp 18 04/29/23 07:00 BP 122/76 04/29/23 07:00 Pulse Ox 94 L 04/29/23 07:00 FiO2 Intake & Output 11/04/29/23 04/29/23 18:59 06:59 18:59 Intake Total 236 180 Balance 236 180 Intake: Oral 236 180 Other: # Voids 0 1 - Labs CBC & Chem 7: 04/28/23 00:06 04/29/23 08:02 Labs: Abnormal Lab Results - Last 24 Hours (Table) 04/29/23 Range/Units 08:02 Chloride 109 H (98-107) mmol/L Glucose 117 H (74-99) mg/dL Microbiology - Last 24 Hours (Table) 04/28/23 18:15 Gram Stain - Preliminary Sputum
--- NOTE | 2023-04-29 12:00 | P.PN ---
Subjective Progress Note Date: 04/29/23 This is a pleasant 62-year-old female patient with a known history of COPD,hypertension, Raynaud's disease, coronary disease with previous stent placement 2, and chronic generalized anxiety. Chest has a history of oxygen dependent chronic obstructive pulmonary disease and is maintained on Advair and Combivent. her last hospital admission for COPD exacerbation was in September 2022. Patient is coming into the emergency department because of worsening shortness of breath. There is a second hospital admission for COPD for this patient. She is an ex-smoker. Obstructive sleep apnea maintained on CPAP at 12 cm water. Her FEV1 value 60% of predicted. She quit smoking in 2006. She follows with Dr. Dharmesh treviño in our office. note that during the patient's earlier admission, there is a questionable conso lidation of the left upper lobe. Based on that, the patient was given a CT angiogram during this current admission. The CT showed no definitive pulmonary embolism. It showed emphysema, centrilobular and stable streaky atelectasis/scarring in the left upper lobe. her blood work shows a WBC count of 10.3, Hemoccult of 14.6, d-dimer is at 1.13, normal coagulation profile, sodium is 142, BUN is at 19 with a creatinine of 0.8, lactic acid level is at 3.0 dropped down to 1.3, LFTs are normal, UA is negative. The viral screen was also negative including influenza, Covid 19 and RSV. The patient has no specific complaints. No angina. No palpitations. No chest pain. No altered mentation. No pleurisy. No hemoptysis. No leg edema. On 04/29/2023, the patient continues to have chest congestion and wheezing and she has limited forward since yesterday. As mentioned earlier, no evidence of any consolidation the CAT scan of the chest. The patient has emphysema. The patient was placed on Zithromax as an empiric antibiotic coverage. She remains on IV Solu-Medrol 60 mg every 6 hours and alert. She is also on Symbicort as maintenance. BUN is at 60 with a creatinine of 0.8. Sodium is at 140. UA is negative. Calcium levels at 9.4. Lactic acid level is down to 1.3. Objective - Vital Signs Vital signs: Vital Signs Temp 98 F 04/29/23 07:00 Pulse 72 04/29/23 08:21 Resp 18 04/29/23 07:00 BP 122/76 04/29/23 07:00 Pulse Ox 94 L 04/29/23 07:00 FiO2 Intake & Output 04/28/23 04/29/23 04/29/23 18:59 06:59 18:59 Intake Total 236 180 Balance 236 180 Intake: Oral 236 180 Other: # Voids 0 1 - Exam GENERAL EXAM: Alert, pleasant 62-year-old female, on 3 L nasal cannula, comfortable in no apparent distress. HEAD: Normocephalic. EYES: Normal reaction of pupils, equal size. NOSE: Clear with pink turbinates. THROAT: No erythema or exudates. NECK: No masses, no JVD. CHEST: No chest wall deformity. LUNGS: Equal air entry with few scattered axillary wheezes throughout the lung segura bilaterally CVS: S1 and S2 normal with no audible murmur, regular rhythm. ABDOMEN: No hepatosplenomegaly, normal bowel sounds, no guarding or rigidity. SPINE: No scoliosis or deformity SKIN: No rashes CENTRAL NERVOUS SYSTEM: No focal deficits, tone is normal in all 4 extremities. EXTREMITIES: There is no peripheral edema. No clubbing, no cyanosis. Peripheral pulses are intact. - Labs CBC & Chem 7: 04/28/23 00:06 04/29/23 08:02 Labs: Abnormal Lab Results - Last 24 Hours (Table) 04/29/23 Range/Units 08:02 Chloride 109 H (98-107) mmol/L Glucose 117 H (74-99) mg/dL Microbiology - Last 24 Hours (Table) 04/28/23 18:15 Gram Stain - Preliminary Sputum Assessment and Plan Plan: acute exacerbation of chronic COPD with secondary shortness of breath, still symptomatic Acute On chronic hypoxic respiratory failure currently on 3 L of oxygen by nasal cannula. CT angiogram of the chest showed COPD. No evidence of any pulmonary embolism. No evidence of any consolidation or masses or tumors. Chronic obstructive pulmonary disease with an FEV1 to 52% of predicted, oxygen dependent Former smoker, quit in 2006 Obstructive sleep apnea maintained on CPAP at 12 cm of water Coronary artery disease with previous stent placement 2 Raynaud's disease Fibromyalgia Hypertension Anxiety Plan Clinically symptomatic regarding COPD I'm going to stop the Symbicort this patient is a combination of budesonide Pulmicort Respules I suggest continue current treatment including the bronchodilators and steroids Empiric antibiotic coverage with Zithromax Resume all medications Review of the CT angiogram of the chest and the patient was reassured Collect sputum Gram stain and culture We'll continue to follow
[2023-04-29] MEDS: BUDESONIDE 0.5 MG/2 ML NEBU INHALATION SCH (19:48)
[2023-04-29] MEDS: FORMOTEROL FUMARATE 20 MCG/2 ML NEBU INHALATION SCH (19:48)
[2023-04-29] MEDS: AZITHROMYCIN 500 MG TAB PO SCH (22:44)
[2023-04-30] MEDS: PANTOPRAZOLE 40 MG TABLET PO SCH (06:30)
[2023-04-30] MEDS: methylPREDNISolone SOD SUCCI 125 MG/2 ML VIAL IV SCH ×3 (06:31→18:19)
[2023-04-30] MEDS: IPRATROPIUM-ALBUTEROL 3 ML NEB INHALATION SCH ×4 (07:58→19:49)
[2023-04-30] MEDS: BUDESONIDE 0.5 MG/2 ML NEBU INHALATION SCH ×2 (07:58→19:49)
[2023-04-30] MEDS: FORMOTEROL FUMARATE 20 MCG/2 ML NEBU INHALATION SCH ×2 (07:58→19:49)
[2023-04-30] MEDS: ASCORBIC ACID 500 MG TAB PO SCH (08:40)
[2023-04-30] MEDS: ENOXAPARIN 40 MG/0.4 ML SYRINGE SQ SCH ×2 (08:40→08:42)
[2023-04-30] MEDS: ASPIRIN 81 MG PO SCH (08:40)
[2023-04-30] MEDS: CHOLECALCIFEROL 125 MCG (5000 IU) TABLET PO SCH (08:40)
[2023-04-30] MEDS: METOPROLOL SUCCINATE (ER) 25 MG TAB.ER.24H PO SCH (08:41)
--- NOTE | 2023-04-30 13:50 | P.PN ---
Subjective Progress Note Date: 04/30/23 Hospital Course: 62-year-old female with history of COPD, chronic hypoxic respiratory failure on 2 L at night, coronary artery disease status post stents presenting with COPD exacerbation. Currently saturating well on 3 L. On initial presentation, d- dimer was elevated to 1.13, bicarb 17, creatinine 0.89, troponin negative, proBNP 153, respiratory viral panel negative. CTA chest did not show any evidence of PE, moderate emphysema. Patient started on IV steroids and bronchodilators, pulmonology consulted. She is also on oral azithromycin. Subjective: Patient seen and examined at bedside. No acute events overnight. Breathing improved. Still having significant cough, nonproductive, associated with occasional chest pain. Pertinent positives and negatives as discussed above, a complete review of systems was performed and all other systems are negative. Vitals Signs Reviewed. General: nontoxic, no distress, appears at stated age Derm: warm, dry Head: atraumatic, normocephalic, symmetric Eyes: EOMI, no lid lag, anicteric sclera Mouth: no lip lesion, mucus membranes moist Cardiovascular: S1S2 reg, no murmur Lungs: Scattered wheezing , no accessory muscle use, supplemental oxygen Abdominal: soft, nontender to palpation, no guarding, no appreciable organomegaly Ext: no gross muscle atrophy, no edema, no contractures Neuro: CN II-XI grossly intact, no focal neuro deficits Psych: Alert, oriented, appropriate affect Data Reviewed Today: Pertinent Labs: No new labs Imaging: No new imaging Assessment and Plan: Active: Acute COPD exacerbation Acute on chronic hypoxic respiratory failure Elevated d-dimer -Discussed management with pulmonology, likely discharge tomorrow -Remains on IV 60 mg Solu-Medrol every 6 hours -DuoNeb scheduled and when necessary, formeterol twice a day, Pulmicort twice a day -CTA negative for PE -Continue weaning oxygen Resolved: Metabolic acidosis Chronic: CAD DVT ppx: Lovenox Code status: Full code Anticipated discharge place: Home Anticipated discharge time: Tomorrow Objective - Vital Signs Vital signs: Vital Signs Temp 98.7 F 04/30/23 08:00 Pulse 84 04/30/23 11:40 Resp 16 04/30/23 08:00 BP 140/66 04/30/23 08:00 Pulse Ox 97 04/30/23 08:00 FiO2 Intake & Output 11/04/30/23 04/30/23 18:59 06:59 18:59 Intake Total 1260 480 Balance 1260 480 Intake: Oral 1260 480 Other: Voiding Method Toilet # Voids 3 1 - Labs CBC & Chem 7: 04/28/23 00:06 04/29/23 08:02
--- NOTE | 2023-04-30 14:48 | P.PN ---
Subjective Progress Note Date: 04/30/23 This is a pleasant 62-year-old female patient with a known history of COPD,hypertension, Raynaud's disease, coronary disease with previous stent placement 2, and chronic generalized anxiety. Chest has a history of oxygen dependent chronic obstructive pulmonary disease and is maintained on Advair and Combivent. her last hospital admission for COPD exacerbation was in September 2022. Patient is coming into the emergency department because of worsening shortness of breath. There is a second hospital admission for COPD for this patient. She is an ex-smoker. Obstructive sleep apnea maintained on CPAP at 12 cm water. Her FEV1 value 60% of predicted. She quit smoking in 2006. She follows with Dr. Dharmesh treviño in our office. note that during the patient's earlier admission, there is a questionable conso lidation of the left upper lobe. Based on that, the patient was given a CT angiogram during this current admission. The CT showed no definitive pulmonary embolism. It showed emphysema, centrilobular and stable streaky atelectasis/scarring in the left upper lobe. her blood work shows a WBC count of 10.3, Hemoccult of 14.6, d-dimer is at 1.13, normal coagulation profile, sodium is 142, BUN is at 19 with a creatinine of 0.8, lactic acid level is at 3.0 dropped down to 1.3, LFTs are normal, UA is negative. The viral screen was also negative including influenza, Covid 19 and RSV. The patient has no specific complaints. No angina. No palpitations. No chest pain. No altered mentation. No pleurisy. No hemoptysis. No leg edema. On 04/29/2023, the patient continues to have chest congestion and wheezing and she has limited forward since yesterday. As mentioned earlier, no evidence of any consolidation the CAT scan of the chest. The patient has emphysema. The patient was placed on Zithromax as an empiric antibiotic coverage. She remains on IV Solu-Medrol 60 mg every 6 hours and alert. She is also on Symbicort as maintenance. BUN is at 60 with a creatinine of 0.8. Sodium is at 140. UA is negative. Calcium levels at 9.4. Lactic acid level is down to 1.3. On today's evaluation of 04/30/2023, the patient is feeling slightly improved compared to yesterday. She is less spastic and wheezy. Her cough and wheezing has essentially subsided as the patient was switched a combination of budesonide and Perforomist the blood treatments. In addition, she is on IV Solu-Medrol 60 mg every 6 hours. She is a bit shaky and having some tremors related to the systemic steroid use and bronchodilators. No other major side effects. She continues to be on IV Solu-Medrol 60 mg every 6 hours. No chest pain. Labs from yesterday was reviewed. Pro-calcitonin level is at 0.14. Objective - Vital Signs Vital signs: Vital Signs Temp 98.7 F 04/30/23 08:00 Pulse 84 04/30/23 11:40 Resp 16 04/30/23 08:00 BP 140/66 04/30/23 08:00 Pulse Ox 97 04/30/23 08:00 FiO2 Intake & Output 04/29/23 04/30/23 04/30/23 18:59 06:59 18:59 Intake Total 1260 480 Balance 1260 480 Intake: Oral 1260 480 Other: Voiding Method Toilet # Voids 3 1 - Exam GENERAL EXAM: Alert, pleasant 62-year-old female, on 3 L nasal cannula, comf ortable in no apparent distress. HEAD: Normocephalic. EYES: Normal reaction of pupils, equal size. NOSE: Clear with pink turbinates. THROAT: No erythema or exudates. NECK: No masses, no JVD. CHEST: No chest wall deformity. LUNGS: Equal air entry with few scattered axillary wheezes throughout the lung segura bilaterally CVS: S1 and S2 normal with no audible murmur, regular rhythm. ABDOMEN: No hepatosplenomegaly, normal bowel sounds, no guarding or rigidity. SPINE: No scoliosis or deformity SKIN: No rashes CENTRAL NERVOUS SYSTEM: No focal deficits, tone is normal in all 4 extremities. EXTREMITIES: There is no peripheral edema. No clubbing, no cyanosis. Peripheral pulses are intact. - Labs CBC & Chem 7: 04/28/23 00:06 04/29/23 08:02 Labs: Microbiology - Last 24 Hours (Table) 04/28/23 18:15 Gram Stain - Preliminary Sputum Assessment and Plan Plan: acute exacerbation of chronic COPD with secondary shortness of breath, still symptomatic Acute On chronic hypoxic respiratory failure currently on 3 L of oxygen by nasal cannula. CT angiogram of the chest showed COPD. No evidence of any pulmonary embolism. No evidence of any consolidation or masses or tumors. Chronic obstructive pulmonary disease with an FEV1 to 52% of predicted, oxygen dependent Former smoker, quit in 2006 Obstructive sleep apnea maintained on CPAP at 12 cm of water Coronary artery disease with previous stent placement 2 Raynaud's disease Fibromyalgia Hypertension Anxiety Plan Clinically symptomatic regarding COPD, with some limited improvement since yesterday and the patient is responding nicely to the current regimen We'll continue combination of budesonide Pulmicort Respules I suggest continue current treatment including the bronchodilators and steroids Empiric antibiotic coverage , pro-calcitonin level is at 0.14 Resume all medications Review of the CT angiogram of the chest and the patient was reassured sputum Gram stain and culture, unable to collect We'll continue to follow
[2023-04-30] MEDS: AZITHROMYCIN 500 MG TAB PO SCH (22:04)
[2023-05-01] MEDS: methylPREDNISolone SOD SUCCI 125 MG/2 ML VIAL IV SCH ×5 (00:30→23:54)
[2023-05-01] MEDS: PANTOPRAZOLE 40 MG TABLET PO SCH (06:39)
[2023-05-01] MEDS: IPRATROPIUM-ALBUTEROL 3 ML NEB INHALATION SCH ×4 (07:46→18:28)
[2023-05-01] MEDS: FORMOTEROL FUMARATE 20 MCG/2 ML NEBU INHALATION SCH ×2 (07:46→18:40)
[2023-05-01] MEDS: BUDESONIDE 0.5 MG/2 ML NEBU INHALATION SCH ×2 (07:46→18:28)
[2023-05-01] MEDS: ASPIRIN 81 MG PO SCH (09:50)
[2023-05-01] MEDS: ASCORBIC ACID 500 MG TAB PO SCH (09:50)
[2023-05-01] MEDS: CHOLECALCIFEROL 125 MCG (5000 IU) TABLET PO SCH (09:56)
[2023-05-01] MEDS: ENOXAPARIN 40 MG/0.4 ML SYRINGE SQ SCH (09:56)
[2023-05-01] MEDS: METOPROLOL SUCCINATE (ER) 25 MG TAB.ER.24H PO SCH (09:56)
--- NOTE | 2023-05-01 15:36 | P.PN ---
Subjective Progress Note Date: 05/01/23 This is a pleasant 62-year-old female patient with a known history of COPD,hypertension, Raynaud's disease, coronary disease with previous stent placement 2, and chronic generalized anxiety. Chest has a history of oxygen dependent chronic obstructive pulmonary disease and is maintained on Advair and Combivent. her last hospital admission for COPD exacerbation was in September 2022. Patient is coming into the emergency department because of worsening shortness of breath. There is a second hospital admission for COPD for this patient. She is an ex-smoker. Obstructive sleep apnea maintained on CPAP at 12 cm water. Her FEV1 value 60% of predicted. She quit smoking in 2006. She follows with Dr. Dharmesh treviño in our office. note that during the patient's earlier admission, there is a questionable conso lidation of the left upper lobe. Based on that, the patient was given a CT angiogram during this current admission. The CT showed no definitive pulmonary embolism. It showed emphysema, centrilobular and stable streaky atelectasis/scarring in the left upper lobe. her blood work shows a WBC count of 10.3, Hemoccult of 14.6, d-dimer is at 1.13, normal coagulation profile, sodium is 142, BUN is at 19 with a creatinine of 0.8, lactic acid level is at 3.0 dropped down to 1.3, LFTs are normal, UA is negative. The viral screen was also negative including influenza, Covid 19 and RSV. The patient has no specific complaints. No angina. No palpitations. No chest pain. No altered mentation. No pleurisy. No hemoptysis. No leg edema. On 04/29/2023, the patient continues to have chest congestion and wheezing and she has limited forward since yesterday. As mentioned earlier, no evidence of any consolidation the CAT scan of the chest. The patient has emphysema. The patient was placed on Zithromax as an empiric antibiotic coverage. She remains on IV Solu-Medrol 60 mg every 6 hours and alert. She is also on Symbicort as maintenance. BUN is at 60 with a creatinine of 0.8. Sodium is at 140. UA is negative. Calcium levels at 9.4. Lactic acid level is down to 1.3. On today's evaluation of 04/30/2023, the patient is feeling slightly improved compared to yesterday. She is less spastic and wheezy. Her cough and wheezing has essentially subsided as the patient was switched a combination of budesonide and Perforomist the blood treatments. In addition, she is on IV Solu-Medrol 60 mg every 6 hours. She is a bit shaky and having some tremors related to the systemic steroid use and bronchodilators. No other major side effects. She continues to be on IV Solu-Medrol 60 mg every 6 hours. No chest pain. Labs from yesterday was reviewed. Pro-calcitonin level is at 0.14. On today's evaluation of 05/01/2023, the patient continues to show ongoing slow improvement in her overall respiratory status. She continues to have some soreness and a tightness in her anterior chest area. Otherwise, she remains with bronchus spastic and wheezy. Her oxygen level is at 2 L/m nasal cannula and oxygento be humidified. No fever. No chills. No pleurisy or hemoptysis. She is active. Objective - Vital Signs Vital signs: Vital Signs Temp 98.2 F 05/01/23 14:00 Pulse 80 05/01/23 15:28 Resp 18 05/01/23 14:00 BP 119/75 05/01/23 14:00 Pulse Ox 93 L 05/01/23 14:00 FiO2 Intake & Output 04/30/23 05/01/23 05/01/23 18:59 06:59 18:59 Intake Total 720 236 Balance 720 236 Intake: Oral 720 236 Other: Voiding Method Toilet Toilet Toilet # Voids 3 2 - Exam GENERAL EXAM: Alert, pleasant 62-year-old female, on 3 L nasal cannula, comfortable in no apparent distress. HEAD: Normocephalic. EYES: Normal reaction of pupils, equal size. NOSE: Clear with pink turbinates. THROAT: No erythema or exudates. NECK: No masses, no JVD. CHEST: No chest wall deformity. LUNGS: Equal air entry with few scattered axillary wheezes throughout the lung segura bilaterally CVS: S1 and S2 normal with no audible murmur, regular rhythm. ABDOMEN: No hepatosplenomegaly, normal bowel sounds, no guarding or rigidity. SPINE: No scoliosis or deformity SKIN: No rashes CENTRAL NERVOUS SYSTEM: No focal deficits, tone is normal in all 4 extremities. EXTREMITIES: There is no peripheral edema. No clubbing, no cyanosis. Peripheral pulses are intact. - Labs CBC & Chem 7: 04/28/23 00:06 04/29/23 08:02 Labs: Microbiology - Last 24 Hours (Table) 04/28/23 18:15 Gram Stain - Final Sputum Sputum Culture - Final Assessment and Plan Plan: acute exacerbation of chronic COPD with secondary shortness of breath, still symptomatic, although improving Acute On chronic hypoxic respiratory failure currently on 3 L of oxygen by nasal cannula. CT angiogram of the chest showed COPD. No evidence of any pulmonary embolism. No evidence of any consolidation or masses or tumors. Chronic obstructive pulmonary disease with an FEV1 to 52% of predicted, oxygen dependent Former smoker, quit in 2006 Obstructive sleep apnea maintained on CPAP at 12 cm of water Coronary artery disease with previous stent placement 2 Raynaud's disease Fibromyalgia Hypertension Anxiety Plan Continue same treatment Admission neck p.m. Humidify oxygen source Clinically symptomatic regarding COPD, with some limited improvement since and the patient is responding nicely to the current regimen We'll continue combination of budesonide Pulmicort Respules I suggest continue current treatment including the bronchodilators and steroids Empiric antibiotic coverage , pro-calcitonin level is at 0.14 Resume all medications Review of the CT angiogram of the chest and the patient was reassured sputum Gram stain and culture, unable to collect We'll continue to follow We'll start tapering the steroids as of tomorrow
--- NOTE | 2023-05-01 17:00 | P.PN ---
Subjective Progress Note Date: 05/01/23 Hospital Course: 62-year-old female with history of COPD, chronic hypoxic respiratory failure on 2 L at night, coronary artery disease status post stents presenting with COPD exacerbation. Currently saturating well on 3 L. On initial presentation, d- dimer was elevated to 1.13, bicarb 17, creatinine 0.89, troponin negative, proBNP 153, respiratory viral panel negative. CTA chest did not show any evid ence of PE, moderate emphysema. Patient started on IV steroids and bronchodilators, pulmonology consulted. She is also on oral azithromycin. Subjective: Patient continues to report tight chest with inability to produce sputum. Feels congested and cough is wet. Denies fevers, chills. Gen: awake, alert HEENT: normocephalic, atraumatic, good hearing acuity, moist mucous membranes Resp: good air exchange, breathing comfortably with no accessory muscle use, diffuse wheezing, rhonchi across all lung segura CVS: good distal perfusion x 4, GI: soft, NTTP, ND : no SPT, no CVAT, wooten catheter not present MSK: no pitting edema, no clubbing Neuro: non-focal, moving all extremities Psych: cooperative, euthymic mood Assessment and Plan: Acute COPD exacerbation Acute on chronic hypoxic respiratory failure Elevated d-dimer -Remains on IV 60 mg Solu-Medrol every 6 hours -DuoNeb scheduled and when necessary, formeterol twice a day, Pulmicort twice a day -CTA negative for PE -Continue weaning oxygen Resolved: Metabolic acidosis Chronic: CAD DVT ppx: Lovenox Code status: Full code Anticipated discharge place: Home Anticipated discharge time: Tomorrow Objective - Vital Signs Vital signs: Vital Signs Temp 98.2 F 05/01/23 14:00 Pulse 80 05/01/23 15:28 Resp 18 05/01/23 14:00 BP 119/75 05/01/23 14:00 Pulse Ox 93 L 05/01/23 14:00 FiO2 Intake & Output 04/30/23 05/01/23 05/01/23 18:59 06:59 18:59 Intake Total 720 236 Balance 720 236 Intake: Oral 720 236 Other: Voiding Method Toilet Toilet Toilet # Voids 3 2 - Labs CBC & Chem 7: 04/28/23 00:06 04/29/23 08:02 Labs: Microbiology - Last 24 Hours (Table) 04/28/23 18:15 Gram Stain - Final Sputum Sputum Culture - Final
[2023-05-01] MEDS: guaiFENesin-DM 600/30MG 1 EACH TAB.ER.12H PO SCH (20:12)
[2023-05-02] MEDS: methylPREDNISolone SOD SUCCI 125 MG/2 ML VIAL IV SCH ×2 (06:23→15:32)
[2023-05-02] MEDS: PANTOPRAZOLE 40 MG TABLET PO SCH (06:24)
[2023-05-02] MEDS: IPRATROPIUM-ALBUTEROL 3 ML NEB INHALATION SCH ×4 (07:56→20:30)
[2023-05-02] MEDS: FORMOTEROL FUMARATE 20 MCG/2 ML NEBU INHALATION SCH ×2 (07:56→20:30)
[2023-05-02] MEDS: BUDESONIDE 0.5 MG/2 ML NEBU INHALATION SCH ×2 (07:56→20:30)
[2023-05-02] MEDS: ASPIRIN 81 MG PO SCH (09:29)
[2023-05-02] MEDS: CHOLECALCIFEROL 125 MCG (5000 IU) TABLET PO SCH (09:29)
[2023-05-02] MEDS: ENOXAPARIN 40 MG/0.4 ML SYRINGE SQ SCH (09:29)
[2023-05-02] MEDS: ASCORBIC ACID 500 MG TAB PO SCH (09:29)
[2023-05-02] MEDS: guaiFENesin-DM 600/30MG 1 EACH TAB.ER.12H PO SCH ×2 (09:30→20:22)
[2023-05-02] MEDS: METOPROLOL SUCCINATE (ER) 25 MG TAB.ER.24H PO SCH (09:30)
--- NOTE | 2023-05-02 11:24 | P.PN ---
Subjective Progress Note Date: 05/02/23 Hospital Course: 62-year-old female with history of COPD, chronic hypoxic respiratory failure on 2 L at night, coronary artery disease status post stents presenting with COPD exacerbation. Currently saturating well on 3 L. On initial presentation, d- dimer was elevated to 1.13, bicarb 17, creatinine 0.89, troponin negative, proBNP 153, respiratory viral panel negative. CTA chest did not show any evid ence of PE, moderate emphysema. Patient started on IV steroids and bronchodilators, pulmonology consulted. She is also on oral azithromycin. Subjective: Patient reporting some sore throat today. Congestion and breathing appear to have improved. Gen: awake, alert HEENT: normocephalic, atraumatic, good hearing acuity, moist mucous membranes Resp: good air exchange, breathing comfortably with no accessory muscle use, diffuse wheezing, rhonchi across all lung segura CVS: good distal perfusion x 4, GI: soft, NTTP, ND : no SPT, no CVAT, wooten catheter not present MSK: no pitting edema, no clubbing Neuro: non-focal, moving all extremities Psych: cooperative, euthymic mood Assessment and Plan: Acute COPD exacerbation Acute on chronic hypoxic respiratory failure Elevated d-dimer -Remains on IV 60 mg Solu-Medrol every 6 hours -DuoNeb scheduled and when necessary, formeterol twice a day, Pulmicort twice a day -CTA negative for PE -Continue weaning oxygen Resolved: Metabolic acidosis Chronic: CAD DVT ppx: Lovenox Code status: Full code Anticipated discharge place: Home Anticipated discharge time: Tomorrow Objective - Vital Signs Vital signs: Vital Signs Temp 97.9 F 05/02/23 08:00 Pulse 75 05/02/23 11:16 Resp 16 05/02/23 08:00 BP 125/77 05/02/23 08:00 Pulse Ox 93 L 05/02/23 08:00 FiO2 Intake & Output 05/01/23 05/02/23 05/02/23 18:59 06:59 18:59 Intake Total 676 Balance 676 Intake: Oral 676 Other: Voiding Method Toilet # Voids 2 - Labs CBC & Chem 7: 04/28/23 00:06 04/29/23 08:02 Labs: Microbiology - Last 24 Hours (Table) 04/28/23 18:15 Gram Stain - Final Sputum Sputum Culture - Final
--- NOTE | 2023-05-02 13:40 | P.PN ---
Subjective Progress Note Date: 05/02/23 This is a pleasant 62-year-old female patient with a known history of COPD,hypertension, Raynaud's disease, coronary disease with previous stent placement 2, and chronic generalized anxiety. Chest has a history of oxygen dependent chronic obstructive pulmonary disease and is maintained on Advair and Combivent. her last hospital admission for COPD exacerbation was in September 2022. Patient is coming into the emergency department because of worsening shortness of breath. There is a second hospital admission for COPD for this patient. She is an ex-smoker. Obstructive sleep apnea maintained on CPAP at 12 cm water. Her FEV1 value 60% of predicted. She quit smoking in 2006. She follows with Dr. Dharmesh treviño in our office. note that during the patient's earlier admission, there is a questionable conso lidation of the left upper lobe. Based on that, the patient was given a CT angiogram during this current admission. The CT showed no definitive pulmonary embolism. It showed emphysema, centrilobular and stable streaky atelectasis/scarring in the left upper lobe. her blood work shows a WBC count of 10.3, Hemoccult of 14.6, d-dimer is at 1.13, normal coagulation profile, sodium is 142, BUN is at 19 with a creatinine of 0.8, lactic acid level is at 3.0 dropped down to 1.3, LFTs are normal, UA is negative. The viral screen was also negative including influenza, Covid 19 and RSV. The patient has no specific complaints. No angina. No palpitations. No chest pain. No altered mentation. No pleurisy. No hemoptysis. No leg edema. On 04/29/2023, the patient continues to have chest congestion and wheezing and she has limited forward since yesterday. As mentioned earlier, no evidence of any consolidation the CAT scan of the chest. The patient has emphysema. The patient was placed on Zithromax as an empiric antibiotic coverage. She remains on IV Solu-Medrol 60 mg every 6 hours and alert. She is also on Symbicort as maintenance. BUN is at 60 with a creatinine of 0.8. Sodium is at 140. UA is negative. Calcium levels at 9.4. Lactic acid level is down to 1.3. On today's evaluation of 04/30/2023, the patient is feeling slightly improved compared to yesterday. She is less spastic and wheezy. Her cough and wheezing has essentially subsided as the patient was switched a combination of budesonide and Perforomist the blood treatments. In addition, she is on IV Solu-Medrol 60 mg every 6 hours. She is a bit shaky and having some tremors related to the systemic steroid use and bronchodilators. No other major side effects. She continues to be on IV Solu-Medrol 60 mg every 6 hours. No chest pain. Labs from yesterday was reviewed. Pro-calcitonin level is at 0.14. On today's evaluation of 05/01/2023, the patient continues to show ongoing slow improvement in her overall respiratory status. She continues to have some soreness and a tightness in her anterior chest area. Otherwise, she remains with bronchus spastic and wheezy. Her oxygen level is at 2 L/m nasal cannula and oxygento be humidified. No fever. No chills. No pleurisy or hemoptysis. She is active. On 05/02/2023, the patient is having a new complaints. She remains on IV Solu- Medrol. She remains on Perforomist and Pulmicort updrafts twice a day and DuoNeb about treatments 4 times a day. Improvement in a shortness of breath. Less bronchospastic. Less wheezy. Maintain on Lovenox. Objective - Vital Signs Vital signs: Vital Signs Temp 97.9 F 05/02/23 08:00 Pulse 75 05/02/23 11:16 Resp 16 05/02/23 08:00 BP 125/77 05/02/23 08:00 Pulse Ox 93 L 05/02/23 08:00 FiO2 Intake & Output 05/01/23 05/02/23 05/02/23 18:59 06:59 18:59 Intake Total 676 Balance 676 Intake: Oral 676 Other: Voiding Method Toilet # Voids 2 - Exam GENERAL EXAM: Alert, pleasant 62-year-old female, on 3 L nasal cannula, comfortable in no apparent distress. HEAD: Normocephalic. EYES: Normal reaction of pupils, equal size. NOSE: Clear with pink turbinates. THROAT: No erythema or exudates. NECK: No masses, no JVD. CHEST: No chest wall deformity. LUNGS: Equal air entry with few scattered axillary wheezes throughout the lung segura bilaterally CVS: S1 and S2 normal with no audible murmur, regular rhythm. ABDOMEN: No hepatosplenomegaly, normal bowel sounds, no guarding or rigidity. SPINE: No scoliosis or deformity SKIN: No rashes CENTRAL NERVOUS SYSTEM: No focal deficits, tone is normal in all 4 extremities. EXTREMITIES: There is no peripheral edema. No clubbing, no cyanosis. Peripheral pulses are intact. - Labs CBC & Chem 7: 04/28/23 00:06 04/29/23 08:02 Labs: Microbiology - Last 24 Hours (Table) 04/28/23 18:15 Gram Stain - Final Sputum Sputum Culture - Final Assessment and Plan Plan: acute exacerbation of chronic COPD with secondary shortness of breath, still symptomatic, although improving Acute On chronic hypoxic respiratory failure currently on 3 L of oxygen by nasal cannula. CT angiogram of the chest showed COPD. No evidence of any pulmonary embolism. No evidence of any consolidation or masses or tumors. Chronic obstructive pulmonary disease with an FEV1 to 52% of predicted, oxygen dependent Former smoker, quit in 2006 Obstructive sleep apnea maintained on CPAP at 12 cm of water Coronary artery disease with previous stent placement 2 Raynaud's disease Fibromyalgia Hypertension Anxiety Plan We'll discontinue the IV Solu-Medrol We'll start the patient prednisone burst taper starting with 40 mg Oxygen sources been humidified Continue Perforomist and Pulmicort neb treatments [id number] Review of the CT angiogram of the chest and the patient was reassured We'll continue to follow Possible discharge in the next 24 hours on a prednisone burst taper Continue Mucinex Increase mobility
[2023-05-02] MEDS: predniSONE 20 MG TAB PO SCH (16:46)
[2023-05-03] MEDS: PANTOPRAZOLE 40 MG TABLET PO SCH (06:26)
[2023-05-03 07:45] VITALS: BP 134/84; RESP 18; TEMP 98.1
[2023-05-03] MEDS: ASCORBIC ACID 500 MG TAB PO SCH (08:44)
[2023-05-03] MEDS: ASPIRIN 81 MG PO SCH (08:44)
[2023-05-03] MEDS: guaiFENesin-DM 600/30MG 1 EACH TAB.ER.12H PO SCH (08:45)
[2023-05-03] MEDS: ENOXAPARIN 40 MG/0.4 ML SYRINGE SQ SCH (08:45)
[2023-05-03] MEDS: predniSONE 20 MG TAB PO SCH (08:45)
[2023-05-03] MEDS: CHOLECALCIFEROL 125 MCG (5000 IU) TABLET PO SCH (08:45)
[2023-05-03] MEDS: METOPROLOL SUCCINATE (ER) 25 MG TAB.ER.24H PO SCH (08:45)
[2023-05-03] MEDS: BUDESONIDE 0.5 MG/2 ML NEBU INHALATION SCH (09:06)
[2023-05-03] MEDS: FORMOTEROL FUMARATE 20 MCG/2 ML NEBU INHALATION SCH (09:06)
[2023-05-03] MEDS: IPRATROPIUM-ALBUTEROL 3 ML NEB INHALATION SCH ×2 (09:06→12:11)
--- NOTE | 2023-05-03 12:15 | P.DS ---
Providers Date of admission: 04/28/23 04:23 Expected date of discharge: 05/03/23 Attending physician: Tena Tello MD Consults: 04/28/23 06:49 Consult Physician Routine Consulting Provider: Gabriele Sotelo Reason/Comments: acute copd EXACERBATION Do you want consulting provider notified?: Yes, Notify in am Primary care physician: Justino Olivier Hospital Course: Acute COPD exacerbation Acute on chronic hypoxic respiratory failure Elevated d-dimer Metabolic acidosis CAD Hospital Course: 62-year-old female with history of COPD, chronic hypoxic respiratory failure on 2 L at night, coronary artery disease status post stents presenting with COPD exacerbation. Currently saturating well on 3 L. On initial presentation, d- dimer was elevated to 1.13, bicarb 17, creatinine 0.89, troponin negative, proBNP 153, respiratory viral panel negative. CTA chest did not show any evidence of PE, moderate emphysema. Patient started on IV steroids and bronchodilators, pulmonology consulted. She was also treated with azithromycin. Pt gradually improved back to 2L of NC at rest. She did have oxygen at home, and was advised to keep this on given desaturation at rest to 86%. On day of discharge, she still had mild-end expiratory wheezing, but good air exchange. She was cleared for d/c home with prednisone burst taper. Advair was discontinued and budesonide nebulizers started in exchange. She will f/u with PCP and pulmonology. I spent 32 minutes coordinating this discharge on 05/03 Gen: awake, alert HEENT: normocephalic, atraumatic, good hearing acuity, moist mucous membranes Resp: good air exchange, breathing comfortably with no accessory muscle use, diffuse wheezing, rhonchi across all lung segura CVS: good distal perfusion x 4, GI: soft, NTTP, ND : no SPT, no CVAT, wooten catheter not present MSK: no pitting edema, no clubbing Neuro: non-focal, moving all extremities Psych: cooperative, euthymic mood Patient Condition at Discharge: Fair Plan - Discharge Summary New Discharge Prescriptions: New Budesonide [Pulmicort] 0.5 mg INHALATION RT-BID #60 each predniSONE [Deltasone] See Rx Instructions .ROUTE .COMPLEX #15 tab Continue Metoprolol Succinate (ER) [Toprol XL] 25 mg PO W/SUPPER Aspirin 81 mg PO W/SUPPER Ubidecarenone [Coenzyme Q10] 100 mg PO DAILY Nitroglycerin Sl Tabs [Nitrostat] 0.4 mg SL Q5M PRN PRN Reason: Chest Pain Ipratropium-Albuterol Nebulize [Duoneb 0.5 mg-3 mg/3 ml Soln] 3 ml INHALATION RT-QID Multivitamins, Thera [Multivitamin (formulary)] 1 tab PO DAILY Ipratropium/Albuterol Sulfate [Combivent Respimat Inhaler] 1 puff INHALATION RT-QID PRN PRN Reason: Shortness Of Breath Albuterol Sulfate [Proair Hfa] 1 - 2 puff INHALATION RT-Q6H PRN PRN Reason: Shortness Of Breath Cholecalciferol [Vitamin D3 (125 Mcg = 5000 Iu)] 125 mcg PO DAILY Melatonin 10 mg PO HS PRN PRN Reason: SLEEP Magnesium Oxide [Mag-Ox] 400 mg PO HS Ascorbic Acid [Vitamin C] 1,000 mg PO DAILY Omeprazole 40 mg PO DAILY Furosemide [Lasix] 20 mg PO DAILY PRN PRN Reason: Edema Albuterol Nebulized [Ventolin Nebulized] 2.5 mg INHALATION RT-QID PRN PRN Reason: Shortness Of Breath Discontinued predniSONE See Taper PO DIRECTED Sulfamethox-Tmp 800-160Mg [Bactrim DS 800-160 mg] 1 tab PO Q12HR Fluticasone Propion/Salmeterol [Advair Hfa 230-21 Mcg Inhaler] 2 puff INHALATION RT-BID Ibuprofen [Advil] 400 mg PO Q6H PRN PRN Reason: Pain Or Fever > 100.5 Discharge Medication List Aspirin 81 mg PO W/SUPPER 04/18/14 [History] Ipratropium-Albuterol Nebulize [Duoneb 0.5 mg-3 mg/3 ml Soln] 3 ml INHALATION RT-QID 04/18/14 [History] Metoprolol Succinate (ER) [Toprol XL] 25 mg PO W/SUPPER 04/18/14 [History] Nitroglycerin Sl Tabs [Nitrostat] 0.4 mg SL Q5M PRN 04/18/14 [History] Ubidecarenone [Coenzyme Q10] 100 mg PO DAILY 04/18/14 [History] Multivitamins, Thera [Multivitamin (formulary)] 1 tab PO DAILY 03/19/17 [History] Ipratropium/Albuterol Sulfate [Combivent Respimat Inhaler] 1 puff INHALATION RT- QID PRN 05/28/17 [History] Albuterol Sulfate [Proair Hfa] 1 - 2 puff INHALATION RT-Q6H PRN 01/24/21 [History] Omeprazole 40 mg PO DAILY 01/24/21 [History] Albuterol Nebulized [Ventolin Nebulized] 2.5 mg INHALATION RT-QID PRN 10/11/22 [History] Ascorbic Acid [Vitamin C] 1,000 mg PO DAILY 10/11/22 [History] Cholecalciferol [Vitamin D3 (125 Mcg = 5000 Iu)] 125 mcg PO DAILY 10/11/22 [History] Furosemide [Lasix] 20 mg PO DAILY PRN 10/11/22 [History] Magnesium Oxide [Mag-Ox] 400 mg PO HS 10/11/22 [History] Melatonin 10 mg PO HS PRN 10/11/22 [History] Budesonide [Pulmicort] 0.5 mg INHALATION RT-BID #60 each 05/03/23 [Rx] predniSONE [Deltasone] See Rx Instructions .ROUTE .COMPLEX #15 tab 05/03/23 [Rx] Follow up Appointment(s)/Referral(s): Justino Olivier MD [Primary Care Provider] - 1-2 days Emmanuel Boyer [NON-STAFF] - As Needed (Please call [employer] once home to arrange an educational visit for them to teach you how to use your portable tanks. ) Discharge/Stand Alone Forms: Help In The Home Discharge Disposition: HOME SELF-CARE
[2023-05-03 12:34] VITALS: PULSE 85
--- NOTE | 2023-05-03 14:28 | P.PN ---
Subjective Progress Note Date: 05/03/23 This is a pleasant 62-year-old female patient with a known history of COPD,hypertension, Raynaud's disease, coronary disease with previous stent placement 2, and chronic generalized anxiety. Chest has a history of oxygen dependent chronic obstructive pulmonary disease and is maintained on Advair and Combivent. her last hospital admission for COPD exacerbation was in September 2022. Patient is coming into the emergency department because of worsening shortness of breath. There is a second hospital admission for COPD for this patient. She is an ex-smoker. Obstructive sleep apnea maintained on CPAP at 12 cm water. Her FEV1 value 60% of predicted. She quit smoking in 2006. She follows with Dr. Dharmesh treviño in our office. note that during the patient's earlier admission, there is a questionable conso lidation of the left upper lobe. Based on that, the patient was given a CT angiogram during this current admission. The CT showed no definitive pulmonary embolism. It showed emphysema, centrilobular and stable streaky atelectasis/scarring in the left upper lobe. her blood work shows a WBC count of 10.3, Hemoccult of 14.6, d-dimer is at 1.13, normal coagulation profile, sodium is 142, BUN is at 19 with a creatinine of 0.8, lactic acid level is at 3.0 dropped down to 1.3, LFTs are normal, UA is negative. The viral screen was also negative including influenza, Covid 19 and RSV. The patient has no specific complaints. No angina. No palpitations. No chest pain. No altered mentation. No pleurisy. No hemoptysis. No leg edema. On 04/29/2023, the patient continues to have chest congestion and wheezing and she has limited forward since yesterday. As mentioned earlier, no evidence of any consolidation the CAT scan of the chest. The patient has emphysema. The patient was placed on Zithromax as an empiric antibiotic coverage. She remains on IV Solu-Medrol 60 mg every 6 hours and alert. She is also on Symbicort as maintenance. BUN is at 60 with a creatinine of 0.8. Sodium is at 140. UA is negative. Calcium levels at 9.4. Lactic acid level is down to 1.3. On today's evaluation of 04/30/2023, the patient is feeling slightly improved compared to yesterday. She is less spastic and wheezy. Her cough and wheezing has essentially subsided as the patient was switched a combination of budesonide and Perforomist the blood treatments. In addition, she is on IV Solu-Medrol 60 mg every 6 hours. She is a bit shaky and having some tremors related to the systemic steroid use and bronchodilators. No other major side effects. She continues to be on IV Solu-Medrol 60 mg every 6 hours. No chest pain. Labs from yesterday was reviewed. Pro-calcitonin level is at 0.14. On today's evaluation of 05/01/2023, the patient continues to show ongoing slow improvement in her overall respiratory status. She continues to have some soreness and a tightness in her anterior chest area. Otherwise, she remains with bronchus spastic and wheezy. Her oxygen level is at 2 L/m nasal cannula and oxygento be humidified. No fever. No chills. No pleurisy or hemoptysis. She is active. On 05/02/2023, the patient is having a new complaints. She remains on IV Solu- Medrol. She remains on Perforomist and Pulmicort updrafts twice a day and DuoNeb about treatments 4 times a day. Improvement in a shortness of breath. Less bronchospastic. Less wheezy. Maintain on Lovenox. On today's evaluation of 05/03/2023, the patient is improving. I discontinued the IV Solu-Medrol yesterday and the patient is currently on a prednisone burst taper. Less spastic and wheezing on today's evaluation. No other new complaints. Objective - Vital Signs Vital signs: Vital Signs Temp 98.1 F 05/03/23 07:42 Pulse 80 05/03/23 09:35 Resp 18 05/03/23 07:42 BP 134/84 05/03/23 07:42 Pulse Ox 96 05/03/23 09:06 FiO2 Intake & Output 05/02/23 05/03/23 05/03/23 18:59 06:59 18:59 Intake Total 362 500 240 Balance 362 500 240 Intake: Oral 362 500 240 Other: Voiding Method Toilet # Voids 1 2 - Exam GENERAL EXAM: Alert, pleasant 62-year-old female, on 3 L nasal cannula, comfortable in no apparent distress. HEAD: Normocephalic. EYES: Normal reaction of pupils, equal size. NOSE: Clear with pink turbinates. THROAT: No erythema or exudates. NECK: No masses, no JVD. CHEST: No chest wall deformity. LUNGS: Equal air entry with few scattered axillary wheezes throughout the lung segura bilaterally CVS: S1 and S2 normal with no audible murmur, regular rhythm. ABDOMEN: No hepatosplenomegaly, normal bowel sounds, no guarding or rigidity. SPINE: No scoliosis or deformity SKIN: No rashes CENTRAL NERVOUS SYSTEM: No focal deficits, tone is normal in all 4 extremities. EXTREMITIES: There is no peripheral edema. No clubbing, no cyanosis. Peripheral pulses are intact. - Labs CBC & Chem 7: 04/28/23 00:06 04/29/23 08:02 Assessment and Plan Plan: acute exacerbation of chronic COPD with secondary shortness of breath, still symptomatic, although improving Acute On chronic hypoxic respiratory failure currently on 3 L of oxygen by nasal cannula. CT angiogram of the chest showed COPD. No evidence of any pulmonary embolism. No evidence of any consolidation or masses or tumors. Chronic obstructive pulmonary disease with an FEV1 to 52% of predicted, oxygen dependent Former smoker, quit in 2006 Obstructive sleep apnea maintained on CPAP at 12 cm of water Coronary artery disease with previous stent placement 2 Raynaud's disease Fibromyalgia Hypertension Anxiety Plan We will discharge the patient home and a prednisone burst taper. We'll arrange outpatient treatment with budesonide nebulized treatment twice a day and albu terol and ipratropium updrafts 4 times a day Oxygen supplementation Mucinex for cough and congestion We'll discharge home today
== END 2023-05-03 14:55 | disposition home or self-care (01) | DRG 190 ==
LOC: EC 23:21 → 6NMEDSUR 04-28 04:23
PROVIDERS: ADMIT Internal Medicine; ATTEND Internal Medicine
DX: J44.1 Chronic obstructive pulmonary disease with (acute) exacerbation (principal); J96.21 Acute and chronic respiratory failure with hypoxia; E87.20 Acidosis, unspecified; J43.2 Centrilobular emphysema; I10 Essential (primary) hypertension; I49.3 Ventricular premature depolarization; I25.10 Atherosclerotic heart disease of native coronary artery without angina pectoris; M79.7 Fibromyalgia; K21.9 Gastro-esophageal reflux disease without esophagitis; M19.90 Unspecified osteoarthritis, unspecified site; I73.00 Raynaud's syndrome without gangrene; R76.0 Raised antibody titer; G47.33 Obstructive sleep apnea (adult) (pediatric); G25.1 Drug-induced tremor; T38.0X5A Adverse effect of glucocorticoids and synthetic analogues, initial encounter; T48.6X5A Adverse effect of antiasthmatics, initial encounter; F41.1 Generalized anxiety disorder; J98.4 Other disorders of lung; Z99.81 Dependence on supplemental oxygen; Z87.891 Personal history of nicotine dependence; Z28.310 Unvaccinated for COVID-19; Z82.5 Family history of asthma and other chronic lower respiratory diseases; Z79.51 Long term (current) use of inhaled steroids; I25.2 Old myocardial infarction; Z79.82 Long term (current) use of aspirin; Z95.5 Presence of coronary angioplasty implant and graft; Z88.0 Allergy status to penicillin; Z88.8 Allergy status to other drugs, medicaments and biological substances; Z88.5 Allergy status to narcotic agent; Z88.3 Allergy status to other anti-infective agents; Z88.1 Allergy status to other antibiotic agents; Z88.7 Allergy status to serum and vaccine
CPT/HCPCS: 36415; 71046; 71275; 80048; 80053; 81003; 83605; 83735; 83880; 84145; 84484; 85025; 85379; 85610; 85730; 87070; 87205; 87636; 93005; 94640; 94760; 96360; 99285

== ENCOUNTER 2024-03-29 10:59 | Inpatient (IN) | payer MEDICARE, OTHER ==
[2024-03-29] MEDS: SODIUM CHLORIDE 0.9% 500 ML 500 ML IV STA (11:41)
[2024-03-29 11:42] LABS: Basophils % (A) 1 %; Eosinophils # (A) 0.1 k/uL (0-0.7); Eosinophils % (A) 2 %; HCT 46.6 % (34.0-46.0); HGB 15.7 gm/dL (11.4-16.0); Lymphocytes # (A) 0.9 k/uL (1.0-4.8); Lymphocytes % (A) 15 %; MCH 30.4 pg (25.0-35.0); MCHC 33.6 g/dL (31.0-37.0); MCV 90.3 fL (80.0-100.0); Mean Platelet Volume 7.7; Monocytes # (A) 0.3 k/uL (0-1.0); Monocytes % (A) 6 %; Neutrophils # (A) 4.2 k/uL (1.3-7.7); Neutrophils % (A) 75 %; Platelet Count 200 k/uL (150-450); RBC 5.16 m/uL (3.80-5.40); RDW 12.8 % (11.5-15.5); WBC 5.6 k/uL (3.8-10.6)
[2024-03-29] MEDS: methylPREDNISolone SOD SUCCI 125 MG/2 ML VIAL IV STA ×2 (11:45→14:15)
[2024-03-29 11:52] LABS: ALT 73 U/L (4-34); AST 50 U/L (14-36); African American GFR (CKD) >90 (>60 ml/min/1.73 sqM); Albumin 3.9 g/dL (3.5-5.0); Alkaline Phosphatase 71 U/L (38-126); Anion Gap 12 mmol/L; Blood Urea Nitrogen 7 mg/dL (7-17); Calcium 9.4 mg/dL (8.4-10.2); Carbon Dioxide 23 mmol/L (22-30); Chloride 109 mmol/L (98-107); Glucose 90 mg/dL (74-99); Magnesium 1.9 mg/dL (1.6-2.3); Non-African American GFR(CKD) 89 (>60 ml/min/1.73 sqM); Potassium 3.7 mmol/L (3.5-5.1); Sodium 144 mmol/L (137-145); Total Bilirubin 1.2 mg/dL (0.2-1.3); Total Protein 6.3 g/dL (6.3-8.2)
[2024-03-29 11:59] LABS: INR 0.9 (<1.2); Prothrombin Time 10.2 sec (10.0-12.5)
[2024-03-29] MEDS: ALBUTEROL NEBULIZED 2.5 MG/3 ML INHALATION STA (12:02)
[2024-03-29] MEDS: IPRATROPIUM 0.5 MG/2.5 ML NEBU INHALATION STA (12:02)
--- NOTE | 2024-03-29 12:40 | ED ---
General Adult HPI - General Chief complaint: Shortness of Breath Stated complaint: NEHA Time Seen by Provider: 03/29/24 11:12 Source: patient, RN notes reviewed, old records reviewed Mode of arrival: ambulatory Limitations: no limitations - History of Present Illness Initial comments: 63-year-old female presenting with dyspnea over the past 2 weeks. Patient has been treated as an outpatient for COPD and pneumonia. She fails to improve. She does have history of COPD and reports cough associated with her dyspnea. She reports fever over this time course. She also has left lateral chest pain which is worse with deep inspiration. No lower extremity pain or swelling. - Related Data Home Medications Medication Instructions Recorded Confirmed Aspirin 81 mg PO DAILY 04/18/14 03/29/24 Ipratropium-Albuterol Nebulize 3 ml INHALATION RT-QID 04/18/14 03/29/24 [Duoneb 0.5 mg-3 mg/3 ml Soln] Metoprolol Succinate (ER) [Toprol 25 mg PO DAILY 04/18/14 03/29/24 XL] Nitroglycerin Sl Tabs [Nitrostat] 0.4 mg SL Q5M PRN 04/18/14 03/29/24 Omeprazole 40 mg PO DAILY 01/24/21 03/29/24 Ascorbic Acid [Vitamin C] 1,000 mg PO DAILY 10/11/22 03/29/24 Cholecalciferol [Vitamin D3 (125 125 mcg PO DAILY 10/11/22 03/29/24 Mcg = 5000 Iu)] Azithromycin [Zithromax] 500 mg PO DAILY 03/29/24 03/29/24 Beet Root 1,000 mg PO DAILY 03/29/24 03/29/24 Formoterol Fumarate [Perforomist] 20 mcg INHALATION RT-BID 03/29/24 03/29/24 Oregano Oil/Flaxseed Oil [Oregano 1 cap PO DAILY 03/29/24 03/29/24 Oil 50-25 mg Capsule] Turmeric Root Extract [Turmeric] 500 mg PO DAILY 03/29/24 03/29/24 Zinc Gluconate [Zinc] 50 mg PO DAILY 03/29/24 03/29/24 Previous Rx's Medication Instructions Recorded Budesonide [Pulmicort] 0.5 mg INHALATION RT-BID #60 each 05/03/23 Allergies Allergy/AdvReac Type Severity Reaction Status Date / Time terconazole [From Terazol 3] Allergy Rash/Hives Verified 03/29/24 13:31 codeine AdvReac Unknown Nausea & Verified 03/29/24 13:31 Vomiting hydrocodone [From Vicodin] AdvReac Unknown Nausea & Verified 03/29/24 13:31 Vomiting amoxicillin [Amoxicillin] AdvReac Nausea & Verified 03/29/24 13:31 Vomiting amoxicillin trihydrate AdvReac Rapid Verified 03/29/24 13:31 [From Augmentin] Heart Rate megestrol acetate AdvReac adrenal Verified 03/29/24 13:31 [From Megace] insufficiency nitrofurantoin AdvReac Nausea & Verified 03/29/24 13:31 Vomiting nitrofurantoin AdvReac Nausea & Verified 03/29/24 13:31 macrocrystalline Vomiting [From Macrobid] potassium clavulanate AdvReac Rapid Verified 03/29/24 13:31 [From Augmentin] Heart Rate Mkaudmi-NQL-WgD Reductase AdvReac muscle Verified 03/29/24 13:31 Inhibitor cramps [Hurzolu-Cfg-Isv Reductase Inhibitor] sumatriptan [From Imitrex] AdvReac Rapid Verified 03/29/24 13:31 Heart Rate sumatriptan succinate AdvReac Rapid Verified 03/29/24 13:31 [From Imitrex] Heart Rate pnuemonia injection Allergy Anaphylaxis Uncoded 03/29/24 11:07 Review of Systems ROS Statement: Those systems with pertinent positive or pertinent negative responses have been documented in the HPI. ROS Other: All systems not noted in ROS Statement are negative. Past Medical History Past Medical History: COPD, Fibromyalgia, GERD/Reflux, Hypertension, Myocardial Infarction ([place]), Musculoskeletal Disorder, Osteoarthritis ([place]) Additional Past Medical History / Comment(s): BUSTER daughter, Raynauds disease, past hx. of adrenal insufficiency, Herniated discs , back pain, migraines, IBS, rheumatoid factor positive Last Myocardial Infarction Date:: 07/2006 History of Any Multi-Drug Resistant Organisms: None Reported Past Surgical History: Appendectomy, Breast Surgery, Section, Cholecystectomy, Heart Catheterization With Stent, Hernia Repair, Tonsillectomy Additional Past Surgical History / Comment(s): cardiac stent x2, abdominal laparoscopy x5, abd. surgery for adhesions, breast augmentation, blepharoplasty, umbilical hernia. Past Anesthesia/Blood Transfusion Reactions: Previous Problems w/ Anesthesia, Motion Sickness Additional Past Anesthesia/Blood Transfusion Reaction / Comment(s): slow to wake up @times, MIGRAINES. Date of Last Stent Placement:: 2006 Past Psychological History: Anxiety Smoking Status: Former smoker Past Alcohol Use History: Occasional Past Drug Use History: None Reported - Past Family History Mother Additional Family Medical History / Comment(s): EMPHYSEMA, possible lung cancer General Exam Limitations: no limitations General appearance: alert, in no apparent distress Head exam: Present: atraumatic, normocephalic Eye exam: Present: normal appearance ENT exam: Present: normal exam Neck exam: Present: normal inspection Respiratory exam: Present: wheezes, decreased breath sounds, prolonged expiratory. Absent: respiratory distress Cardiovascular Exam: Present: regular rate, normal rhythm GI/Abdominal exam: Present: soft. Absent: distended, tenderness, guarding Extremities exam: Present: normal inspection, normal capillary refill. Absent: pedal edema, calf tenderness Neurological exam: Present: alert, oriented X3, CN II-XII intact. Absent: motor sensory deficit Psychiatric exam: Present: normal affect, normal mood Skin exam: Present: warm, dry, intact Course Vital Signs 03/29/24 03/29/24 03/29/24 11:03 12:02 12:07 Temperature 97.8 F Pulse Rate 99 85 Respiratory 20 20 20 Rate Blood Pressure 134/59 O2 Sat by Pulse 94 L Oximetry 03/29/24 03/29/24 12:28 13:53 Temperature Pulse Rate 95 100 Respiratory 20 20 Rate Blood Pressure 139/58 O2 Sat by Pulse 94 L Oximetry Medical Decision Making - Medical Decision Making Was pt. sent in by a medical professional or institution (, PA, DIGITAL DIRECTOR, urgent care, hospital, or [facility]...) When possible be specific @ -No Did you speak to anyone other than the patient for history (EMS, parent, family, police, friend...)? What history was obtained from this source @ -No Did you review nursing and triage notes (agree or disagree)? Why? @ -I reviewed and agree with nursing and triage notes Were old charts reviewed (outside hosp., previous admission, EMS record, old EKG, old radiological studies, urgent care reports/EKG's, [facility] records)? Report findings @ -No old charts were reviewed Differential Dyspnea: Coronary syndrome, arrhythmia, tamponade, asthma, COPD, pulmonary embolism, pneumonia, pneumothorax, pulmonary effusion, anaphylaxis, diabetic ketoacidosis, flailed chest, pulmonary contusion, diaphragmatic rupture, anemia, neuromuscular, this is not meant to be an all-inclusive list. EKG interpreted by me (3pts min.). @ -Sinus rhythm rate of 83 with PVC ND interval 116, QRS duration 101, QTc [address] segment elevation, tremor artifact limiting assessment. X-rays interpreted by me (1pt min.). @Chest x-ray negative for acute cardiopulmonary findings CT interpreted by me (1pt min.). @ -CT angiography multifocal pneumonia, no pulmonary embolism. U/S interpreted by me (1pt. min.). @ -None done What testing was considered but not performed or refused? (CT, X-rays, U/S, labs)? Why? @ -None What meds were considered but not given or refused? Why? @ -None Did you discuss the management of the patient with other professionals (professionals i.e. , PA, DIGITAL DIRECTOR, lab, RT, psych nurse, director of social services, diesel mechanic helper, teacher, civil preparedness officer, porter sample case)? Give summary @ -Dr. Cerda Was smoking cessation discussed for >3mins.? @ -No Was critical care preformed (if so, how long)? @ -Yes, 35 minutes Were there social determinants of health that impacted care today? How? (Homelessness, low income, unemployed, alcoholism, drug addiction, transportation, low edu. Level, literacy, decrease access to med. care, group home, rehab)? @ -No Was there de-escalation of care discussed even if they declined (Discuss DNR or withdrawal of care, Hospice)? DNR status @ -No What co-morbidities impacted this encounter? (DM, HTN, Smoking, COPD, CAD, Cancer, CVA, ARF, Chemo, Hep., AIDS, mental health diagnosis, sleep apnea, morbid obesity)? @ -[COPD Was patient admitted / discharged? Hospital course, mention meds given and route, prescriptions, significant lab abnormalities, going to OR and other pertinent info. @ -63-year-old female with 2-week history of cough, dyspnea. Patient is in moderate respiratory distress with hypoxia. She has diffuse wheezing bilaterally. Initial workup reveals an elevated D-dimer and therefore CT angiography is performed which is negative for PE but shows a multifocal pneumonia and the patient does test positive for coronavirus. This represents COPD exacerbation secondary to coronavirus pneumonia. Patient admitted with pulmonology on consult. Undiagnosed new problem with uncertain prognosis? @ -[No Drug Therapy requiring intensive monitoring for toxicity (Heparin, Nitro, Insulin, Cardizem)? @ -No Were any procedures done? @ -No Diagnosis/symptom? @ -[COPD with hypoxia, multifocal pneumonia, coronavirus Acute, or Chronic, or Acute on Chronic? @ -Acute Uncomplicated (without systemic symptoms) or Complicated (systemic symptoms)? @ -[default Side effects of treatment? @ -No Exacerbation, Progression, or Severe Exacerbation? @ -No Poses a threat to life or bodily function? How? (Chest pain, [place], [place], pneumonia, PE, COPD, DKA, ARF, appy, cholecystitis, CVA, Diverticulitis, Homicidal, Suicidal, threat to staff... and all critical care pts) @ -[Yes, COPD, respiratory failure - Lab Data Result diagrams: 03/29/24 11:30 03/29/24 11:30 Lab Results 03/29/24 03/29/24 03/29/24 Range/Units 11:30 11:30 11:30 WBC 5.6 (3.8-10.6) k/uL RBC 5.16 (3.80-5.40) m/uL Hgb 15.7 (11.4-16.0) gm/dL Hct 46.6 H (34.0-46.0) % MCV 90.3 (80.0-100.0) fL MCH 30.4 (25.0-35.0) pg MCHC 33.6 (31.0-37.0) g/dL RDW 12.8 (11.5-15.5) % Plt Count 200 (150-450) k/uL MPV 7.7 Neutrophils % 75 % Lymphocytes % 15 % Monocytes % 6 % Eosinophils % 2 % Basophils % 1 % Neutrophils # 4.2 (1.3-7.7) k/uL Lymphocytes # 0.9 L (1.0-4.8) k/uL Monocytes # 0.3 (0-1.0) k/uL Eosinophils # 0.1 (0-0.7) k/uL Basophils # 0.0 (0-0.2) k/uL PT 10.2 (10.0-12.5) sec INR 0.9 (<1.2) APTT 25.0 (22.0-30.0) sec D-Dimer 1.53 H (<0.60) mg/L FEU Sodium 144 (137-145) mmol/L Potassium 3.7 (3.5-5.1) mmol/L Chloride 109 H (98-107) mmol/L Carbon Dioxide 23 (22-30) mmol/L Anion Gap 12 mmol/L BUN 7 (7-17) mg/dL Creatinine 0.73 (0.52-1.04) mg/dL Est GFR (CKD-EPI)AfAm >90 (>60 ml/min/1.73 sqM) Est GFR (CKD-EPI)NonAf 89 (>60 ml/min/1.73 sqM) Glucose 90 (74-99) mg/dL Lactic Ac Sepsis Rflx Plasma Lactic Acid Neftali (0.7-2.0) mmol/L Calcium 9.4 (8.4-10.2) mg/dL Magnesium 1.9 (1.6-2.3) mg/dL Total Bilirubin 1.2 (0.2-1.3) mg/dL AST 50 H (14-36) U/L ALT 73 H (4-34) U/L Alkaline Phosphatase 71 (38-126) U/L Troponin I (0.000-0.034) ng/mL Total Protein 6.3 (6.3-8.2) g/dL Albumin 3.9 (3.5-5.0) g/dL Influenza Type A (PCR) (Not Detectd) Influenza Type B (PCR) (Not Detectd) RSV (PCR) (Not Detectd) SARS-CoV-2 (PCR) (Not Detectd) 03/29/24 03/29/24 03/29/24 Range/Units 11:30 11:30 11:55 WBC (3.8-10.6) k/uL RBC (3.80-5.40) m/uL Hgb (11.4-16.0) gm/dL Hct (34.0-46.0) % MCV (80.0-100.0) fL MCH (25.0-35.0) pg MCHC (31.0-37.0) g/dL RDW (11.5-15.5) % Plt Count (150-450) k/uL MPV Neutrophils % % Lymphocytes % % Monocytes % % Eosinophils % % Basophils % % Neutrophils # (1.3-7.7) k/uL Lymphocytes # (1.0-4.8) k/uL Monocytes # (0-1.0) k/uL Eosinophils # (0-0.7) k/uL Basophils # (0-0.2) k/uL PT (10.0-12.5) sec INR (<1.2) APTT (22.0-30.0) sec D-Dimer (<0.60) mg/L FEU Sodium (137-145) mmol/L Potassium (3.5-5.1) mmol/L Chloride (98-107) mmol/L Carbon Dioxide (22-30) mmol/L Anion Gap mmol/L BUN (7-17) mg/dL Creatinine (0.52-1.04) mg/dL Est GFR (CKD-EPI)AfAm (>60 ml/min/1.73 sqM) Est GFR (CKD-EPI)NonAf (>60 ml/min/1.73 sqM) Glucose (74-99) mg/dL Lactic Ac Sepsis Rflx Y Plasma Lactic Acid Neftali 3.1 H* (0.7-2.0) mmol/L Calcium (8.4-10.2) mg/dL Magnesium (1.6-2.3) mg/dL Total Bilirubin (0.2-1.3) mg/dL AST (14-36) U/L ALT (4-34) U/L Alkaline Phosphatase (38-126) U/L Troponin I <0.012 (0.000-0.034) ng/mL Total Protein (6.3-8.2) g/dL Albumin (3.5-5.0) g/dL Influenza Type A (PCR) (Not Detectd) Influenza Type B (PCR) (Not Detectd) RSV (PCR) (Not Detectd) SARS-CoV-2 (PCR) (Not Detectd) 03/29/24 Range/Units 12:28 WBC (3.8-10.6) k/uL RBC (3.80-5.40) m/uL Hgb (11.4-16.0) gm/dL Hct (34.0-46.0) % MCV (80.0-100.0) fL MCH (25.0-35.0) pg MCHC (31.0-37.0) g/dL RDW (11.5-15.5) % Plt Count (150-450) k/uL MPV Neutrophils % % Lymphocytes % % Monocytes % % Eosinophils % % Basophils % % Neutrophils # (1.3-7.7) k/uL Lymphocytes # (1.0-4.8) k/uL Monocytes # (0-1.0) k/uL Eosinophils # (0-0.7) k/uL Basophils # (0-0.2) k/uL PT (10.0-12.5) sec INR (<1.2) APTT (22.0-30.0) sec D-Dimer (<0.60) mg/L FEU Sodium (137-145) mmol/L Potassium (3.5-5.1) mmol/L Chloride (98-107) mmol/L Carbon Dioxide (22-30) mmol/L Anion Gap mmol/L BUN (7-17) mg/dL Creatinine (0.52-1.04) mg/dL Est GFR (CKD-EPI)AfAm (>60 ml/min/1.73 sqM) Est GFR (CKD-EPI)NonAf (>60 ml/min/1.73 sqM) Glucose (74-99) mg/dL Lactic Ac Sepsis Rflx Plasma Lactic Acid Neftali (0.7-2.0) mmol/L Calcium (8.4-10.2) mg/dL Magnesium (1.6-2.3) mg/dL Total Bilirubin (0.2-1.3) mg/dL AST (14-36) U/L ALT (4-34) U/L Alkaline Phosphatase (38-126) U/L Troponin I (0.000-0.034) ng/mL Total Protein (6.3-8.2) g/dL Albumin (3.5-5.0) g/dL Influenza Type A (PCR) Not Detected (Not Detectd) Influenza Type B (PCR) Not Detected (Not Detectd) RSV (PCR) Not Detected (Not Detectd) SARS-CoV-2 (PCR) Detected A (Not Detectd) Critical Care Time Critical Care Time: Yes Total Critical Care Time: 35 Disposition Clinical Impression: COPD exacerbation, COVID-19 Disposition: ADMITTED IP TO THIS [facility] Condition: Stable Is patient prescribed a controlled substance at d/c from ED?: No Referrals: Justino Olivier MD [Primary Care Provider] - 1-2 days Time of Disposition: 14:06
--- NOTE | 2024-03-29 13:00 | XR ---
EXAMINATION TYPE: XR chest 2V DATE OF EXAM: 03/29/2024 12:44 PM CLINICAL INDICATION: Female, 63 years old with history of difficulty breathing; COMPARISON: Chest radiographs from 04/28/2023. TECHNIQUE: XR chest 2V Frontal view of the chest. FINDINGS: Lungs/Pleura: There is flattening of the diaphragm with increased lucency of the lungs. No evidence o f pneumothorax, pleural effusion or focal consolidation. Pulmonary vascularity: Unremarkable. Heart/mediastinum: Cardiomediastinal silhouette is unremarkable. Musculoskeletal: No acute osseous pathology. Other findings: None IMPRESSION: 1. No acute cardiopulmonary disease process. 2. COPD changes. [facility], , 03/29/2024 12:58 PM
--- NOTE | 2024-03-29 13:09 | CT ---
EXAMINATION TYPE: CT angio chest CT DLP: 270.5 mGycm, Automated exposure control for dose reduction was used. DATE OF EXAM: 03/29/2024 12:54 PM COMPARISON: CTA chest 04/28/2023, CT chest 02/18/2023, PET/CT 11/16/2022, chest radiograph 03/29/2024 CLINICAL INDICATION:Female, 63 years old with history of mohamud/cp; pe TECHNIQUE/CONTRAST: CTA scan of the thorax is performed with IV Contrast, patient injected with 62 mL of Isovue 370, pulm onary embolism protocol. MIP images are created and reviewed. FINDINGS: Pulmonary Artery: There is no evidence for a filling defect within the pulmonary vasculature to sugge st acute pulmonary embolism. The pulmonary artery is of normal size. Lungs/Pleura: No pleural effusion or pneumothorax. Moderate to advanced centrilobular emphysematous c hanges. Development of multifocal patchy reticular opacities throughout the lungs. Stable streaky ate lectasis within the left upper lobe. Airway: Large airways are patent. Heart: Heart is within normal limits for size.. No pericardial effusion. Vasculature: No evidence of aortic aneurysm. Minimal aortic calcifications. Mediastinum: Mildly enlarged 1.0 cm short axis right hilar lymph node (series 401, image 80). Additio nal mildly prominent bilateral hilar and mediastinal lymph nodes. Musculoskeletal: No acute osseous abnormalities. Mild multilevel degenerative disc disease. Soft Tissues: Bilateral breast prosthesis. Lower neck: No significant findings. Upper Abdomen: Postcholecystectomy changes. IMPRESSION: 1. No evidence of pulmonary embolism. 2. Multifocal patchy reticular opacities throughout the lungs likely representing an atypical pneumon ia. 3. Prominent and mildly enlarged mediastinal bilateral hilar lymph nodes likely reactive due to #2. 4. Moderate to advanced COPD changes. [facility], , 03/29/2024 1:06 PM
[2024-03-29] MEDS ORDERED: ONDANSETRON 4 MG/2 ML VIAL IVP PRN (14:00)
[2024-03-29] MEDS ORDERED: NALOXONE 0.4 MG/ML 1 ML VIAL IVP PRN (14:00)
[2024-03-29] MEDS ORDERED: IPRATROPIUM-ALBUTEROL 3 ML NEB INHALATION PRN (14:00)
[2024-03-29] MEDS: AZITHROMYCIN 500 MG TAB PO SCH (14:15)
[2024-03-29] MEDS: SODIUM CHLORIDE 0.9% 1,000 ML IV SCH (14:25)
[2024-03-29] MEDS: ALBUTEROL HFA INHALER INHALATION SCH (15:08)
--- NOTE | 2024-03-29 15:30 | P.HPIM ---
History of Present Illness H&P Date: 03/29/24 63 year old F with PMH of CAD, HTN, GERD, COPD presents to the ED for shortness of breath. Symptoms progressively getting worse over the past 14 days. Shortness of breath associated with fever, chills, productive cough of yellow sputum, and fatigue. She went to go see her PCP Dr. Olivier on and received a IM injection for antibiotic and steroid. She has been taking Azithromycin since but with no relief. In the ED she underwent extensive evaluation. BP 139/58, HR 100, RR 20, 94% on 1L NC. CBC, Coag panel, CMP significant for Hct 46.6, Cl 109, AST 50, ALT 73. Lactic acid 3.1. COVID +. EKG sinus rhythm with PVCs. CTA chest multifocal opacities with no PE. Admitted for further workup and management. General: non toxic, no distress, appears at stated age Derm: warm, dry Head: atraumatic, normocephalic, symmetric Eyes: EOMI, no lid lag, anicteric sclera Mouth: no lip lesion, mucus membranes moist Cardiovascular: S1 S2 reg. No murmurs, rubs, gallops Lungs: Expiratory wheezing bilaterally, no accessory muscle use Ext: no gross muscle atrophy, no edema, no contractures Neuro: no focal neuro deficits Psych: Alert, oriented, appropriate affect Based on my assessment of this patient, this patient meets a high complexity level of care. COVID pneumonia: Start Rocephin 2g IV QD and Azithromycin 500 mg PO QD. Obtain Procal. Obtain Sputum Cx, Legionella Ag. Start Decadron 6 mg PO QD. Albuterol INH scheduled and PRN for SOB/wheezing. Pulmicort 0.5 INH BID. Formoroerol 20 mcg INH BID. Zinc 220 mg PO QD. Pulmonary consult. Acute COPD exacerbation: Management as above. Lactic acidosis: NS at 75 cc/hr. Trend until negative. Does not meet sepsis criteria. Elevated D-Dimer likely due to COVID 19 PNA. CAD: ASA 81 mg PO QD. Metoprolol 25 mg PO QD. HTN: Metoprolol as above. GERD: Prilosec 40 mg PO QD. CODE STATUS: FULL CODE DVT Prophylaxis: Lovenox SQ GI Prophylaxis: Omeprazole PO. Designated medical POA if patient is not able to make medical decisions for themselves: I have reviewed the following optimization consultant notes: ED note I have reviewed the results of the following tests: As above. I have ordered the following tests: As above. I have discussed the care of this patient with the following independent historian: I have independently interpreted the following test below: EKG. I have discussed the management of this patient with the following physician: Past Medical History Past Medical History: COPD, Fibromyalgia, GERD/Reflux, Hypertension, Myocardial Infarction ([place]), Musculoskeletal Disorder, Osteoarthritis (OA) Additional Past Medical History / Comment(s): BUSTER daughter, Raynauds disease, past hx. of adrenal insufficiency, Herniated discs , back pain, migraines, IBS, rheumatoid factor positive Last Myocardial Infarction Date:: 07/2006 History of Any Multi-Drug Resistant Organisms: None Reported Past Surgical History: Appendectomy, Breast Surgery, Section, Cholecystectomy, Heart Catheterization With Stent, Hernia Repair, Tonsillectomy Additional Past Surgical History / Comment(s): cardiac stent x2, abdominal laparoscopy x5, abd. surgery for adhesions, breast augmentation, blepharopla sty, umbilical hernia. Past Anesthesia/Blood Transfusion Reactions: Previous Problems w/ Anesthesia, Motion Sickness Additional Past Anesthesia/Blood Transfusion Reaction / Comment(s): slow to wake up @times, MIGRAINES. Date of Last Stent Placement:: 2006 Past Psychological History: Anxiety Smoking Status: Former smoker Past Alcohol Use History: Occasional Past Drug Use History: None Reported - Past Family History Mother Additional Family Medical History / Comment(s): EMPHYSEMA, possible lung cancer Medications and Allergies Home Medications Medication Instructions Recorded Confirmed Type Aspirin 81 mg PO DAILY 04/18/14 03/29/24 History Ipratropium-Albuterol Nebulize 3 ml INHALATION RT-QID 04/18/14 03/29/24 History [Duoneb 0.5 mg-3 mg/3 ml Soln] Metoprolol Succinate (ER) [Toprol 25 mg PO DAILY 04/18/14 03/29/24 History XL] Nitroglycerin Sl Tabs [Nitrostat] 0.4 mg SL Q5M PRN 04/18/14 03/29/24 History Omeprazole 40 mg PO DAILY 01/24/21 03/29/24 History Ascorbic Acid [Vitamin C] 1,000 mg PO DAILY 10/11/22 03/29/24 History Cholecalciferol [Vitamin D3 (125 125 mcg PO DAILY 10/11/22 03/29/24 History Mcg = 5000 Iu)] Budesonide [Pulmicort] 0.5 mg INHALATION RT-BID #60 each 05/03/23 03/29/24 Rx Azithromycin [Zithromax] 500 mg PO DAILY 03/29/24 03/29/24 History Beet Root 1,000 mg PO DAILY 03/29/24 03/29/24 History Formoterol Fumarate [Perforomist] 20 mcg INHALATION RT-BID 03/29/24 03/29/24 History Oregano Oil/Flaxseed Oil [Oregano 1 cap PO DAILY 03/29/24 03/29/24 History Oil 50-25 mg Capsule] Turmeric Root Extract [Turmeric] 500 mg PO DAILY 03/29/24 03/29/24 History Zinc Gluconate [Zinc] 50 mg PO DAILY 03/29/24 03/29/24 History Allergies Allergy/AdvReac Type Severity Reaction Status Date / Time terconazole [From Terazol 3] Allergy Rash/Hives Verified 03/29/24 13:31 codeine AdvReac Unknown Nausea & Verified 03/29/24 13:31 Vomiting hydrocodone [From Vicodin] AdvReac Unknown Nausea & Verified 03/29/24 13:31 Vomiting amoxicillin [Amoxicillin] AdvReac Nausea & Verified 03/29/24 13:31 Vomiting amoxicillin trihydrate AdvReac Rapid Verified 03/29/24 13:31 [From Augmentin] Heart Rate megestrol acetate AdvReac adrenal Verified 03/29/24 13:31 [From Megace] insufficiency nitrofurantoin AdvReac Nausea & Verified 03/29/24 13:31 Vomiting nitrofurantoin AdvReac Nausea & Verified 03/29/24 13:31 macrocrystalline Vomiting [From Macrobid] potassium clavulanate AdvReac Rapid Verified 03/29/24 13:31 [From Augmentin] Heart Rate Scsddyd-[id number]-[id number] Reductase AdvReac muscle Verified 03/29/24 13:31 Inhibitor cramps [Mnhqryg-Uvd-Pwh Reductase Inhibitor] sumatriptan [From Imitrex] AdvReac Rapid Verified 03/29/24 13:31 Heart Rate sumatriptan succinate AdvReac Rapid Verified 03/29/24 13:31 [From Imitrex] Heart Rate pnuemonia injection Allergy Anaphylaxis Uncoded 03/29/24 11:07 Physical Exam Vitals: Vital Signs Temp Pulse Resp BP Pulse Ox 03/29/24 13:53 100 20 139/58 94 L 03/29/24 12:28 95 20 03/29/24 12:07 20 03/29/24 12:02 85 20 03/29/24 11:03 97.8 F 99 20 134/59 94 L Intake and Output 03/29/24 03/29/24 03/29/24 06:59 14:59 22:59 Other: Weight 68.039 kg Results CBC & Chem 7: 03/29/24 11:30 03/29/24 11:30 Labs: Abnormal Lab Results - Last 24 Hours (Table) 03/29/24 03/29/24 03/29/24 Range/Units 11:30 11:30 11:30 Hct 46.6 H (34.0-46.0) % Lymphocytes # 0.9 L (1.0-4.8) k/uL D-Dimer 1.53 H (<0.60) mg/L FEU Chloride 109 H (98-107) mmol/L Plasma Lactic Acid Neftali (0.7-2.0) mmol/L AST 50 H (14-36) U/L ALT 73 H (4-34) U/L SARS-CoV-2 (PCR) (Not Detectd) 03/29/24 03/29/24 03/29/24 Range/Units 11:30 12:28 14:20 Hct (34.0-46.0) % Lymphocytes # (1.0-4.8) k/uL D-Dimer (<0.60) mg/L FEU Chloride (98-107) mmol/L Plasma Lactic Acid Neftali 3.1 H* 2.6 H* (0.7-2.0) mmol/L AST (14-36) U/L ALT (4-34) U/L SARS-CoV-2 (PCR) Detected A (Not Detectd)
[2024-03-29] MEDS ORDERED: IPRATROPIUM-ALBUTEROL 3 ML NEB INHALATION SCH (16:00)
[2024-03-29] MEDS ORDERED: AZITHROMYCIN 500 MG TAB PO SCH (16:00)
[2024-03-29] MEDS: LEVOFLOXACIN 750MG-D5W PMX 750 MG in DEXTROSE/WATER 1 150ML.BAG IVPB STA (16:20)
[2024-03-29] MEDS: ALBUTEROL HFA INHALER INHALATION PRN (17:36)
--- NOTE | 2024-03-29 18:12 | P.CNPUL ---
History of Present Illness Consult date: 03/29/24 Reason for consult: dyspnea, COPD History of present illness: This is a 61-year-old female patient was hospitalized for increased dyspnea, cough, yellow sputum production, increased shortness of breath, active bronchospasm and wheezing. The patient got sick approximately 2 weeks ago and the patient had a febrile illness. Subsequently, the condition progressively got worse. She was given a course of Z-Leonardo for primary care physician. She c howie into the emergency and she tested positive for COVID-19 and COPD is actively in exacerbation. CAT scan of the chest was reviewed and there is no evidence of any pulmonary embolism. It is consistent with COPD. Do not appreciate any pulmonary infiltrates or pneumonia. The patient's pulse ox currently on 4 L of oxygen by nasal cannula and she is on O2 at 1 L. White cell count of 5.6 with a hemoglobin 15.7. D-dimer is 1.5 with a normal coagulation profile. Initial lactic acid level was at 3.1 dropped down to 2.6. Electrolytes are within normal limits. BUN is at 12 with a creatinine of 0.7. The rest of the viral screen was essentially negative. No pleurisy. No hemoptysis. She is known to have COPD. Her baseline FEV1 is in order of 52% of predicted. She is also known to have obstructive sleep apnea on CPAP therapy, coronary artery disease and hypertension. She quit smoking back in 2006. White cell count is at 5.6 with a hemoglobin 15.7. Review of Systems CONSTITUTIONAL: Generalized weakness. Poor appetite. Denies any recent significant weight loss or weight gain. EYES: Denies change in vision. EARS, NOSE, MOUTH, THROAT: Denies headaches, denies sore throat. CARDIOVASCULAR: Denies chest pain, palpitations or syncopal episodes. RESPIRATORY: Positive for shortness of breath, cough, congestion no hemoptysis. GASTROINTESTINAL: Denies change in appetite, denies abdominal pain GENITOURINARY: Denies hematuria, denies infections. MUSKULOSKELETAL: Denies pain, denies swelling. INTEGUMENTARY: Denies rash, denies eczema. NEUROLOGICAL: Denies recent memory loss, no recent seizure activity. PSYCHIATRIC: Denies anxiety, denies depression. HEMATOLOGIC/LYMPHATIC: Denies anemia, denies enlarged lymph nodes. Past Medical History Past Medical History: COPD, Fibromyalgia, GERD/Reflux, Hypertension, Myocardial Infarction ([place]), Musculoskeletal Disorder, Osteoarthritis (OA) Additional Past Medical History / Comment(s): BUSTER daughter, Raynauds disease, past hx. of adrenal insufficiency, Herniated discs , back pain, migraines, IBS, rheumatoid factor positive Last Myocardial Infarction Date:: 07/2006 History of Any Multi-Drug Resistant Organisms: None Reported Past Surgical History: Appendectomy, Breast Surgery, Section, Cholecystectomy, Heart Catheterization With Stent, Hernia Repair, Tonsillectomy Additional Past Surgical History / Comment(s): cardiac stent x2, abdominal laparoscopy x5, abd. surgery for adhesions, breast augmentation, blepharoplasty, umbilical hernia. Past Anesthesia/Blood Transfusion Reactions: Previous Problems w/ Anesthesia, Motion Sickness Additional Past Anesthesia/Blood Transfusion Reaction / Comment(s): slow to wake up @times, MIGRAINES. Date of Last Stent Placement:: 2006 Past Psychological History: Anxiety Smoking Status: Former smoker Past Alcohol Use History: Occasional Past Drug Use History: None Reported - Past Family History Mother Additional Family Medical History / Comment(s): EMPHYSEMA, possible lung cancer Medications and Allergies Home Medications Medication Instructions Recorded Confirmed Type Aspirin 81 mg PO DAILY 04/18/14 03/29/24 History Ipratropium-Albuterol Nebulize 3 ml INHALATION RT-QID 04/18/14 03/29/24 History [Duoneb 0.5 mg-3 mg/3 ml Soln] Metoprolol Succinate (ER) [Toprol 25 mg PO DAILY 04/18/14 03/29/24 History XL] Nitroglycerin Sl Tabs [Nitrostat] 0.4 mg SL Q5M PRN 04/18/14 03/29/24 History Omeprazole 40 mg PO DAILY 01/24/21 03/29/24 History Ascorbic Acid [Vitamin C] 1,000 mg PO DAILY 10/11/22 03/29/24 History Cholecalciferol [Vitamin D3 (125 125 mcg PO DAILY 10/11/22 03/29/24 History Mcg = 5000 Iu)] Budesonide [Pulmicort] 0.5 mg INHALATION RT-BID #60 each 05/03/23 03/29/24 Rx Azithromycin [Zithromax] 500 mg PO DAILY 03/29/24 03/29/24 History Beet Root 1,000 mg PO DAILY 03/29/24 03/29/24 History Formoterol Fumarate [Perforomist] 20 mcg INHALATION RT-BID 03/29/24 03/29/24 History Oregano Oil/Flaxseed Oil [Oregano 1 cap PO DAILY 03/29/24 03/29/24 History Oil 50-25 mg Capsule] Turmeric Root Extract [Turmeric] 500 mg PO DAILY 03/29/24 03/29/24 History Zinc Gluconate [Zinc] 50 mg PO DAILY 03/29/24 03/29/24 History Allergies Allergy/AdvReac Type Severity Reaction Status Date / Time terconazole [From Terazol 3] Allergy Rash/Hives Verified 03/29/24 13:31 codeine AdvReac Unknown Nausea & Verified 03/29/24 13:31 Vomiting hydrocodone [From Vicodin] AdvReac Unknown Nausea & Verified 03/29/24 13:31 Vomiting amoxicillin [Amoxicillin] AdvReac Nausea & Verified 03/29/24 13:31 Vomiting amoxicillin trihydrate AdvReac Rapid Verified 03/29/24 13:31 [From Augmentin] Heart Rate megestrol acetate AdvReac adrenal Verified 03/29/24 13:31 [From Megace] insufficiency nitrofurantoin AdvReac Nausea & Verified 03/29/24 13:31 Vomiting nitrofurantoin AdvReac Nausea & Verified 03/29/24 13:31 macrocrystalline Vomiting [From Macrobid] potassium clavulanate AdvReac Rapid Verified 03/29/24 13:31 [From Augmentin] Heart Rate Ubnvsgy-LTP-GsH Reductase AdvReac muscle Verified 03/29/24 13:31 Inhibitor cramps [Ctrhvai-Xfw-Cbi Reductase Inhibitor] sumatriptan [From Imitrex] AdvReac Rapid Verified 03/29/24 13:31 Heart Rate sumatriptan succinate AdvReac Rapid Verified 03/29/24 13:31 [From Imitrex] Heart Rate pnuemonia injection Allergy Anaphylaxis Uncoded 03/29/24 11:07 Physical Exam Vitals: Vital Signs Temp Pulse Resp BP Pulse Ox 03/29/24 13:53 100 20 139/58 94 L 03/29/24 12:28 95 20 03/29/24 12:07 20 03/29/24 12:02 85 20 03/29/24 11:03 97.8 F 99 20 134/59 94 L Intake and Output 03/29/24 03/29/24 03/29/24 06:59 14:59 22:59 Other: Weight 68.039 kg GENERAL EXAM: Alert, pleasant 63-year-old female, on 1 L nasal cannula, comfortable in no apparent distress. HEAD: Normocephalic. EYES: Normal reaction of pupils, equal size. NOSE: Clear with pink turbinates. THROAT: No erythema or exudates. NECK: No masses, no JVD. CHEST: No chest wall deformity. LUNGS: Equal air entry with few scattered axillary wheezes throughout the lung segura bilaterally CVS: S1 and S2 normal with no audible murmur, regular rhythm. ABDOMEN: No hepatosplenomegaly, normal bowel sounds, no guarding or rigidity. SPINE: No scoliosis or deformity SKIN: No rashes CENTRAL NERVOUS SYSTEM: No focal deficits, tone is normal in all 4 extremities. EXTREMITIES: There is no peripheral edema. No clubbing, no cyanosis. Peripheral pulses are intact. Results - Laboratory Findings CBC and BMP: 03/29/24 11:30 03/29/24 11:30 PT/INR, D-dimer PT 10.2 sec (10.0-12.5) 03/29/24 11:30 INR 0.9 (<1.2) 03/29/24 11:30 D-Dimer 1.53 mg/L FEU (<0.60) H 03/29/24 11:30 Abnormal lab findings: Abnormal Labs 03/29/24 03/29/24 03/29/24 11:30 11:30 11:30 Hct 46.6 H Lymphocytes # 0.9 L D-Dimer 1.53 H Chloride 109 H Plasma Lactic Acid Neftali AST 50 H ALT 73 H SARS-CoV-2 (PCR) 03/29/24 03/29/24 03/29/24 11:30 12:28 14:20 Hct Lymphocytes # D-Dimer Chloride Plasma Lactic Acid Neftali 3.1 H* 2.6 H* AST ALT SARS-CoV-2 (PCR) Detected A - Diagnostic Findings Chest x-ray: image reviewed CT scan - chest: image reviewed Assessment and Plan Plan: Acute exacerbation of chronic COPD, likely secondary to COVID-19 infection. Acute COVID-19 infection, symptoms started approximately 2 weeks ago. The patient is outside the window for remdesivir. Superinfection with bacteria is f elt to be less likely. Reviewed the CAT scan of the chest and it shows no evidence of any pulmonary embolism. D-dimer is at 1.5. No clear airspace disease or consolidations. Acute on chronic hypoxic respiratory failure currently on 1 L of oxygen by nasal cannula. CT angiogram of the chest showed COPD. No evidence of any pulmonary embolism. Chronic obstructive pulmonary disease with an FEV1 to 52% of predicted, oxygen dependent Former smoker, quit in 2006 Obstructive sleep apnea maintained on CPAP at 12 cm of water Coronary artery disease with previous stent placement 2 Raynaud's disease Fibromyalgia Hypertension Anxiety Plan Continue current treatment including the bronchodilators check procalcitonin level Check sputum Gram stain and culture Outside the window for remdesivir Completed a course of Zithromax on outpatient basis IV Solu-Medrol 60 mg every 6 hours Resume all medications Review of the CT angiogram of the chest and the patient was reassured We'll continue to follow
[2024-03-29] MEDS: methylPREDNISolone SOD SUCCI 125 MG/2 ML VIAL IV SCH (18:27)
[2024-03-29] MEDS ORDERED: BUDESONIDE 0.5 MG/2 ML NEBU INHALATION SCH (20:00)
[2024-03-29] MEDS ORDERED: FORMOTEROL FUMARATE 20 MCG/2 ML NEBU INHALATION SCH (20:00)
[2024-03-29] MEDS: SODIUM CHLORIDE 0.9% 1,000 ML IV ONE (20:30)
[2024-03-29] MEDS: SYMBICORT 80-4.5 MCG INHALER INHALATION SCH (20:33)
[2024-03-29] MEDS: guaiFENesin 600 MG TABLET.ER PO SCH (21:47)
[2024-03-30] MEDS: PANTOPRAZOLE 40 MG TABLET PO SCH (06:44)
[2024-03-30] MEDS ORDERED: dexAMETHasone 2 MG TAB PO SCH (09:00)
[2024-03-30] MEDS: ZINC SULFATE 220 MG CAP PO SCH (10:23)
[2024-03-30] MEDS: ASPIRIN 81 MG PO SCH (10:23)
[2024-03-30] MEDS: METOPROLOL SUCCINATE (ER) 25 MG TAB.ER.24H PO SCH (10:23)
[2024-03-30] MEDS: CHOLECALCIFEROL 125 MCG (5000 IU) TABLET PO SCH (10:23)
[2024-03-30] MEDS: ENOXAPARIN 40 MG/0.4 ML SYRINGE SQ SCH (10:23)
--- NOTE | 2024-03-30 12:44 | P.PN ---
Subjective Progress Note Date: 03/30/24 Hospital course Patient is a 63-year-old female with PMH of CAD, HTN, GERD, COPD presents to the ED for shortness of breath. Symptoms progressively getting worse over the past 14 days. Shortness of breath associated with fever, chills, productive cough of yellow sputum, and fatigue. She went to go see her PCP Dr. Olivier on and received a IM injection for antibiotic and steroid. She has been taking Azithromycin since but with no relief. In the ED she underwent extensive evaluation. BP 139/58, HR 100, RR 20, 94% on 1L NC. CBC, Coag panel, CMP significant for Hct 46.6, Cl 109, AST 50, ALT 73. Lactic acid 3.1. COVID +. EKG sinus rhythm with PVCs. CTA chest multifocal opacities with no PE. Admitted for further workup and management. Patient seen this morning. 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 Quit smoking in 2006 I reviewed note from pulmonology who doubts patient has bacterial pneumonia I reviewed lactic acid which is 1.7 I reviewed procalcitonin which is 0.03 Antibiotics discontinued Patient currently on 2 L nasal cannula. No hypoxia documented Continue with IV Solu-Medrol 60 mg every 6 hours Continue with Symbicort 2 puffs twice daily Continue with albuterol HFA as needed Coronary disease Continue with aspirin 81 mg p.o. daily Continue metoprolol 25 mg p.o. daily Hypertension Continue metoprolol GERD Continue with Prilosec 40 mg p.o. daily DVT prophylaxis: Lovenox subcu Objective - Vital Signs Vital signs: Vital Signs Temp 98.3 F 03/30/24 08:00 Pulse 74 03/30/24 08:00 Resp 18 03/30/24 08:00 BP 121/100 03/30/24 02:00 Pulse Ox 93 L 03/30/24 08:00 FiO2 Intake & Output 03/29/24 03/30/24 03/30/24 18:59 06:59 18:59 Intake Total 1150 Balance 1150 Weight 68.039 kg Intake: Intake, IV Titration 900 Amount Sodium Chloride 0.9% 1, 900 000 ml @ 75 mls/hr IV . [id number] [facility] Rx#:[id number] Oral 250 Other: # Voids 4 4 - Labs CBC & Chem 7: 03/29/24 11:30 03/29/24 11:30 Labs: Abnormal Lab Results - Last 24 Hours (Table) 03/29/24 03/29/24 03/29/24 Range/Units 12:28 14:20 18:11 Plasma Lactic Acid Neftali 2.6 H* 4.4 H* (0.7-2.0) mmol/L SARS-CoV-2 (PCR) Detected A (Not Detectd) 03/29/24 03/30/24 Range/Units 21:43 01:45 Plasma Lactic Acid Neftali 2.8 H* 2.2 H* (0.7-2.0) mmol/L SARS-CoV-2 (PCR) (Not Detectd)
--- NOTE | 2024-03-30 15:09 | P.PN ---
Subjective Progress Note Date: 03/30/24 This is a 61-year-old female patient was hospitalized for increased dyspnea, cough, yellow sputum production, increased shortness of breath, active bronchospasm and wheezing. The patient got sick approximately 2 weeks ago and the patient had a febrile illness. Subsequently, the condition progressively got worse. She was given a course of Z-Leonardo for primary care physician. She came into the emergency and she tested positive for COVID-19 and COPD is actively in exacerbation. CAT scan of the chest was reviewed and there is no evidence of any pulmonary embolism. It is consistent with COPD. Do not appreciate any pulmonary infiltrates or pneumonia. The patient's pulse ox currently on 4 L of oxygen by nasal cannula and she is on O2 at 1 L. White cell count of 5.6 with a hemoglobin 15.7. D-dimer is 1.5 with a normal coagulation profile. Initial lactic acid level was at 3.1 dropped down to 2.6. Electrolytes are within normal limits. BUN is at 12 with a creatinine of 0.7. The rest of the viral screen was essentially negative. No pleurisy. No hemoptysis. She is known to have COPD. Her baseline FEV1 is in order of 52% of predicted. She is also known to have obstructive sleep apnea on CPAP therapy, coronary artery disease and hypertension. She quit smoking back in 2006. White cell count is at 5.6 with a hemoglobin 15.7. On 03/30/2024, the patient is being seen for a follow-up. Slightly improved compared to yesterday. Continues to have a congested cough. Producing yellow maya sputum. No new labs are available from today and labs are essentially from yesterday. The patient is COVID-19 positive and she has an acuity of exacerbation. She is on IV Solu-Medrol 60 mg every 6 hours. She is on Symbicort and albuterol HFA [id number]. She is also on Lovenox 40 mg for DVT prophylaxis. The procalcitonin level was at 0.03 and a lactic acid level is down to 1.7. No other significant events overnight. In terms of her oxygenation, the patient's pulse ox is currently 93% 2 L of O2 nasal cannula. Objective - Vital Signs Vital signs: Vital Signs Temp 98.3 F 03/30/24 08:00 Pulse 74 03/30/24 08:00 Resp 18 03/30/24 08:00 BP 121/100 03/30/24 02:00 Pulse Ox 93 L 03/30/24 08:00 FiO2 Intake & Output 03/29/24 03/30/24 03/30/24 18:59 06:59 18:59 Intake Total 1150 Balance 1150 Weight 68.039 kg Intake: Intake, IV Titration 900 Amount Sodium Chloride 0.9% 1, 900 000 ml @ 75 mls/hr IV . [id number] [facility] Rx#:[id number] Oral 250 Other: # Voids 4 4 - Exam GENERAL EXAM: Alert, pleasant 63-year-old female, on 1 L nasal cannula, comfortable in no apparent distress. HEAD: Normocephalic. EYES: Normal reaction of pupils, equal size. NOSE: Clear with pink turbinates. THROAT: No erythema or exudates. NECK: No masses, no JVD. CHEST: No chest wall deformity. LUNGS: Equal air entry with few scattered axillary wheezes throughout the lung segura bilaterally CVS: S1 and S2 normal with no audible murmur, regular rhythm. ABDOMEN: No hepatosplenomegaly, normal bowel sounds, no guarding or rigidity. SPINE: No scoliosis or deformity SKIN: No rashes CENTRAL NERVOUS SYSTEM: No focal deficits, tone is normal in all 4 extremities. EXTREMITIES: There is no peripheral edema. No clubbing, no cyanosis. Peripheral pulses are intact. - Labs CBC & Chem 7: 03/29/24 11:30 03/29/24 11:30 Labs: Abnormal Lab Results - Last 24 Hours (Table) 03/29/24 03/29/24 03/30/24 Range/Units 18:11 21:43 01:45 Plasma Lactic Acid Neftali 4.4 H* 2.8 H* 2.2 H* (0.7-2.0) mmol/L Assessment and Plan Plan: Acute exacerbation of chronic COPD, likely secondary to COVID-19 infection. Acute COVID-19 infection, symptoms started approximately 2 weeks ago. The patient is outside the window for remdesivir. Superinfection with bacteria is felt to be less likely. Reviewed the CAT scan of the chest and it shows no evidence of any pulmonary embolism. D-dimer is at 1.5. No clear airspace disease or consolidations. Acute on chronic hypoxic respiratory failure currently on 1 L of oxygen by nasal cannula. CT angiogram of the chest showed COPD. No evidence of any pulmonary embolism. Chronic obstructive pulmonary disease with an FEV1 to 52% of predicted, oxygen dependent Former smoker, quit in 2006 Obstructive sleep apnea maintained on CPAP at 12 cm of water Coronary artery disease with previous stent placement 2 Raynaud's disease Fibromyalgia Hypertension Anxiety Plan Will continue same treatment Continue current treatment including the bronchodilators check procalcitonin level was at 0.03 Check sputum Gram stain and culture, still pending Outside the window for remdesivir Completed a course of Zithromax on outpatient basis IV Solu-Medrol 60 mg every 6 hours Resume all medications Review of the CT angiogram of the chest and the patient was reassured We'll continue to follow
--- NOTE | 2024-03-31 11:03 | P.PN ---
Subjective Progress Note Date: 03/31/24 Hospital course Patient is a 63-year-old female with PMH of CAD, HTN, GERD, COPD presents to the ED for shortness of breath. Symptoms progressively getting worse over the past 14 days. Shortness of breath associated with fever, chills, productive cough of yellow sputum, and fatigue. She went to go see her PCP Dr. Olivier on and received a IM injection for antibiotic and steroid. She has been taking Azithromycin since but with no relief. In the ED she underwent extensive evaluation. BP 139/58, HR 100, RR 20, 94% on 1L NC. CBC, Coag panel, CMP significant for Hct 46.6, Cl 109, AST 50, ALT 73. Lactic acid 3.1. COVID +. EKG sinus rhythm with PVCs. CTA chest multifocal opacities with no PE. Admitted for further workup and management. Patient seen this morning. She states that she is still short of breath. She states that she is actually worse today compared to yesterday. Patient states that at baseline she gets short of breath with minimal activity. She says that when she starts doing any exercising her oxygen does drop down into the 80s. Patient states that now she gets short of breath with just rest. 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 Quit smoking in 2006 Pulmonology on board Patient currently on 2 L nasal cannula. Will do home O2 eval Continue with IV Solu-Medrol 60 mg every 6 hours Continue with Symbicort 2 puffs twice daily Continue with albuterol HFA as needed Patient has a poor baseline. Coronary disease Continue with aspirin 81 mg p.o. daily Continue metoprolol 25 mg p.o. daily Hypertension Continue metoprolol GERD Continue with Prilosec 40 mg p.o. daily DVT prophylaxis: Lovenox subcu Objective - Vital Signs Vital signs: Vital Signs Temp 98.6 F 03/31/24 07:57 Pulse 69 03/31/24 07:57 Resp 17 03/31/24 07:57 BP 119/68 03/31/24 07:57 Pulse Ox 95 03/31/24 07:57 FiO2 Intake & Output 03/30/24 03/31/24 03/31/24 18:59 06:59 18:59 Weight 68.039 kg Other: Voiding Method Toilet # Voids 3 1 - Labs CBC & Chem 7: 03/29/24 11:30 03/29/24 11:30 Labs: Microbiology - Last 24 Hours (Table) 03/30/24 16:10 Gram Stain - Preliminary Sputum
[2024-03-31] MEDS: LEVOFLOXACIN 750 MG TAB PO SCH (13:08)
[2024-03-31] MEDS: guaiFENesin-DM 100-10MG/5ML 10 ML CUP PO SCH (13:08)
--- NOTE | 2024-03-31 13:36 | XR ---
EXAMINATION TYPE: XR chest 1V DATE OF EXAM: 03/31/2024 1:16 PM CLINICAL INDICATION: Female, 63 years old with history of covid; [facility] COMPARISON: Chest radiographs from 03/29/2024 TECHNIQUE: XR chest 1V Frontal view of the chest. FINDINGS: Lungs/Pleura: Right lower lobe airspace opacities. There is flattening of the diaphragm with increase d lucency of the lungs. No evidence of pneumothorax, pleural effusion or left focal consolidation. Pulmonary vascularity: Unremarkable. Heart/mediastinum: Cardiomediastinal silhouette is unremarkable. Musculoskeletal: No acute osseous pathology. Other findings: None IMPRESSION: Airspace opacities correlate clinically. [facility], , 03/31/2024 1:34 PM
--- NOTE | 2024-03-31 18:21 | P.PN ---
Subjective Progress Note Date: 03/31/24 This is a 61-year-old female patient was hospitalized for increased dyspnea, cough, yellow sputum production, increased shortness of breath, active bronchospasm and wheezing. The patient got sick approximately 2 weeks ago and the patient had a febrile illness. Subsequently, the condition progressively got worse. She was given a course of Z-Leonardo for primary care physician. She came into the emergency and she tested positive for COVID-19 and COPD is actively in exacerbation. CAT scan of the chest was reviewed and there is no evidence of any pulmonary embolism. It is consistent with COPD. Do not appreciate any pulmonary infiltrates or pneumonia. The patient's pulse ox currently on 4 L of oxygen by nasal cannula and she is on O2 at 1 L. White cell count of 5.6 with a hemoglobin 15.7. D-dimer is 1.5 with a normal coagulation profile. Initial lactic acid level was at 3.1 dropped down to 2.6. Electrolytes are within normal limits. BUN is at 12 with a creatinine of 0.7. The rest of the viral screen was essentially negative. No pleurisy. No hemoptysis. She is known to have COPD. Her baseline FEV1 is in order of 52% of predicted. She is also known to have obstructive sleep apnea on CPAP therapy, coronary artery disease and hypertension. She quit smoking back in 2006. White cell count is at 5.6 with a hemoglobin 15.7. On 03/30/2024, the patient is being seen for a follow-up. Slightly improved compared to yesterday. Continues to have a congested cough. Producing yellow maya sputum. No new labs are available from today and labs are essentially from yesterday. The patient is COVID-19 positive and she has an acuity of exacerbation. She is on IV Solu-Medrol 60 mg every 6 hours. She is on Symbicort and albuterol HFA [id number]. She is also on Lovenox 40 mg for DVT prophylaxis. The procalcitonin level was at 0.03 and a lactic acid level is down to 1.7. No other significant events overnight. In terms of her oxygenation, the patient's pulse ox is currently 93% 2 L of O2 nasal cannula. 03/31/2024, the patient continues to be congested and she is bringing up thick yellowish sputum. The sputum Gram stain and culture is in progress and showing gram-negative bacillus. 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 I am going to start her on empiric antibiotic coverage and I chose Levaquin on this patient. Her procalcitonin level was 0.03. Nevertheless, the amount of sputum is quite extensive and is not typical for COVID-19. Based on that, we will start the patient on empiric antibiotic coverage. Lactic acid level is down to 1.7. The patient remains on oxygen and she remains on 2 L of O2 nasal cannula. Afebrile. No encephalopathy. No nausea or emesis. She is on Symbicort and Ventolin HFA 4 times a day. IV fl uids normal saline at 75 cc an hour. Objective - Vital Signs Vital signs: Vital Signs Temp 98.1 F 03/31/24 12:05 Pulse 60 03/31/24 12:05 Resp 15 03/31/24 12:05 BP 113/74 03/31/24 12:05 Pulse Ox 96 03/31/24 12:05 FiO2 Intake & Output 03/30/24 03/31/24 03/31/24 18:59 06:59 18:59 Weight 68.039 kg Other: Voiding Method Toilet # Voids 3 1 4 - Exam GENERAL EXAM: Alert, pleasant 63-year-old female, on 2 L nasal cannula, comfortable in no apparent distress. HEAD: Normocephalic. EYES: Normal reaction of pupils, equal size. NOSE: Clear with pink turbinates. THROAT: No erythema or exudates. NECK: No masses, no JVD. CHEST: No chest wall deformity. LUNGS: Equal air entry with few scattered axillary wheezes throughout the lung segura bilaterally CVS: S1 and S2 normal with no audible murmur, regular rhythm. ABDOMEN: No hepatosplenomegaly, normal bowel sounds, no guarding or rigidity. SPINE: No scoliosis or deformity SKIN: No rashes CENTRAL NERVOUS SYSTEM: No focal deficits, tone is normal in all 4 extremities. EXTREMITIES: There is no peripheral edema. No clubbing, no cyanosis. Peripheral pulses are intact. - Labs CBC & Chem 7: 03/29/24 11:30 03/29/24 11:30 Labs: Microbiology - Last 24 Hours (Table) 03/30/24 16:10 Gram Stain - Preliminary Sputum Sputum Culture - Preliminary Assessment and Plan Plan: Acute exacerbation of chronic COPD, likely secondary to COVID-19 infection. Acute COVID-19 infection, symptoms started approximately 2 weeks ago. The patient is outside the window for remdesivir. Superinfection with bacteria is felt to be less likely. Reviewed the CAT scan of the chest and it shows no evidence of any pulmonary embolism. D-dimer is at 1.5. No clear airspace disease or consolidations. Acute on chronic hypoxic respiratory failure currently on 1 L of oxygen by nasal cannula. CT angiogram of the chest showed COPD. No evidence of any pulmonary embolism. Chronic obstructive pulmonary disease with an FEV1 to 52% of predicted, oxygen dependent Former smoker, quit in 2006 Obstructive sleep apnea maintained on CPAP at 12 cm of water Coronary artery disease with previous stent placement 2 Raynaud's disease Fibromyalgia Hypertension Anxiety Plan Will start the patient on Levaquin, empiric and the rest of the meds are unchanged Continue current treatment including the bronchodilators check procalcitonin level was at 0.03 Check sputum Gram stain and culture, still pending Outside the window for remdesivir IV Solu-Medrol 60 mg every 6 hours Resume all medications Review of the CT angiogram of the chest and the patient was reassured We'll continue to follow
[2024-04-01 04:57] LABS: Magnesium 2.1 mg/dL (1.6-2.3); Potassium 4.2 mmol/L (3.5-5.1)
--- NOTE | 2024-04-01 10:42 | P.PN ---
Subjective Progress Note Date: 04/01/24 Hospital course Patient is a 63-year-old female with PMH of CAD, HTN, GERD, COPD presents to the ED for shortness of breath. Symptoms progressively getting worse over the past 14 days. Shortness of breath associated with fever, chills, productive cough of yellow sputum, and fatigue. She went to go see her PCP Dr. Olivier on and received a IM injection for antibiotic and steroid. She has been taking Azithromycin since but with no relief. In the ED she underwent extensive evaluation. BP 139/58, HR 100, RR 20, 94% on 1L NC. CBC, Coag panel, CMP significant for Hct 46.6, Cl 109, AST 50, ALT 73. Lactic acid 3.1. COVID +. EKG sinus rhythm with PVCs. CTA chest multifocal opacities with no PE. Admitted for further workup and management. Patient's symptoms were not improving and she was having thick greenish sputum so pulmonology started the patient on Levaquin p.o 750 mg daily. Last night patient was having episodes of bradycardia. She was seen by our internal medicine resident. Patient was asymptomatic. Patient's potassium was within normal limits. Cardiology consulted. Patient seen this morning and she states that her breathing is still about the same. 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 Quit smoking in 2006 Patient currently on 2 L nasal cannula. Which is her home O2 Will do home O2 eval Continue with IV Solu-Medrol 60 mg every 6 hours Continue with Symbicort 2 puffs twice daily Continue with albuterol HFA as needed Patient has a poor baseline. Patient states that she is not at her baseline. Patient states that her main issues dyspnea. She states that at rest she does fine. I reviewed pulmonology note who started the patient on Levaquin 750 mg p.o. daily Sinus bradycardia Patient is asymptomatic Cardiology was consulted last night. Echocardiogram was done this morning Patient will need outpatient sleep study to rule out sleep apnea I will discontinue metoprolol. Patient was not given metoprolol this morning Coronary disease Continue with aspirin 81 mg p.o. daily Metoprolol 25 mg p.o. daily was discontinued due to bradycardia Hypertension Metoprolol discontinued due to bradycardia Blood pressure this morning controlled GERD Continue with Prilosec 40 mg p.o. daily DVT prophylaxis: Lovenox subcu Anticipated discharge: Anticipate patient be ready for discharge in next 24 to 48 hours if cleared by pulmonology and cardiology Anticipated discharge location: Home Objective - Vital Signs Vital signs: Vital Signs Temp 97.5 F L 04/01/24 07:19 Pulse 61 04/01/24 07:19 Resp 18 04/01/24 07:19 BP 120/54 04/01/24 07:19 Pulse Ox 96 04/01/24 07:19 FiO2 Intake & Output 03/31/24 04/01/24 04/01/24 18:59 06:59 18:59 Other: Voiding Method Toilet # Voids 4 - Labs CBC & Chem 7: 03/29/24 11:30 04/01/24 04:06 Labs: Microbiology - Last 24 Hours (Table) 03/30/24 16:10 Gram Stain - Preliminary Sputum Sputum Culture - Preliminary
--- NOTE | 2024-04-01 12:18 | P.CRDCN ---
History of Present Illness History of present illness: HISTORY OF PRESENTING ILLNESS This is a pleasant 63-year-old with past medical history significant for COPD, fibromyalgia, GERD, CAD with prior stenting, previous tobacco abuse who presents secondary to shortness breath. She has been having a number of issues with shortness of breath or last few months. She was actually seen by Dr. Redd a few months ago secondary to abnormal EKG at PCPs office and underwent workup with echo as well as stress test. Stress test results are not currently available however had been performed approximately 3 weeks ago. Unfortunately over last 2 weeks she has not been feeling well with some increasing cough, shortness breath. She was found to be coded positive and is being treated for COPD exacerbation. Cardiology was consult and secondary to bradycardia. Patient denies any significant lightheadedness or dizziness. She did have sinus bradycardia with heart rates in the high 40s while sleeping at night. Occasionally she will stand up and get woozy however not frequent and has never had any syncope. She states she feels she is slowly improving. Troponin normal on presentation. Her metoprolol was discontinued and denies any real change in his symptoms. EKG showing normal sinus rhythm with nonspecific T-wave inversions 3 and aVF and occasional PVC. REVIEW OF SYSTEMS At the time of my exam: CONSTITUTIONAL: Denies fever or chills. CARDIOVASCULAR: Denies chest pain, +shortness of breath, orthopnea, PND or palpitations. RESPIRATORY: Denies cough. GASTROINTESTINAL: Denies abdominal pain, diarrhea, constipation, nausea or vomiting. MUSCULOSKELETAL: Denies myalgias. NEUROLOGIC: Denies numbness, tingling or weakness. ENDOCRINE: Denies fatigue, weight change, polydipsia or polyurina. GENITOURINARY: Denies burning, hematuria or urgency with micturation. HEMATOLOGIC: Denies history of anemia or bleeding. PHYSICAL EXAMINATION Vital signs reviewed. CONSTITUTIONAL: No apparent distress. HEENT: Head is normocephalic. Pupils are equal, round. Sclerae anicteric. Mucous membranes of the mouth are moist. No JVD. No carotid bruit. CHEST EXAMINATION: Lungs are clear to auscultation. No chest wall tenderness is noted on palpation or with deep breathing. HEART EXAMINATION: Regular rate and rhythm. S1, S2 heard. No murmurs, gallops or rub. ABDOMEN: Soft, nontender. Positive bowel sounds. EXTREMITIES: 2+ peripheral pulses, no lower extremity edema and no calf tenderness. NEUROLOGIC EXAMINATION: Patient is awake, alert and oriented x3. ASSESSMENT Asymptomatic sinus bradycardia mainly at night somewhat exacerbated by beta sergey Shortness breath Acute exacerbation of COPD COVID-19 infection CAD with prior history of PCI Hypertension Hyperlipidemia Occasional PVCs PLAN Patient had undergone workup recently in office with echo and stress test. Echocardiogram has already been repeated in the hospital and obtain results. Obtain results from office stress test. Patient appears asymptomatic for many bradycardia and appears mainly at night. For now we will hold metoprolol however no absolute contraindications and does not appear symptomatic. Also symptoms appear related to COVID-19 infection. Further recommendations to follow Past Medical History Past Medical History: COPD, Fibromyalgia, GERD/Reflux, Hypertension, Myocardial Infarction (CT), Musculoskeletal Disorder, Osteoarthritis (OA) Additional Past Medical History / Comment(s): BUSTER daughter, Raynauds disease, past hx. of adrenal insufficiency, Herniated discs , back pain, migraines, IBS, rheumatoid factor positive Last Myocardial Infarction Date:: 07/2006 History of Any Multi-Drug Resistant Organisms: None Reported Past Surgical History: Appendectomy, Breast Surgery, Section, Cholecystectomy, Heart Catheterization With Stent, Hernia Repair, Tonsillectomy Additional Past Surgical History / Comment(s): cardiac stent x2, abdominal laparoscopy x5, abd. surgery for adhesions, breast augmentation, blepharoplasty, umbilical hernia. Past Anesthesia/Blood Transfusion Reactions: Previous Problems w/ Anesthesia, Motion Sickness Additional Past Anesthesia/Blood Transfusion Reaction / Comment(s): slow to wake up @times, MIGRAINES. Date of Last Stent Placement:: 2006 Past Psychological History: Anxiety Smoking Status: Former smoker Past Alcohol Use History: Occasional Additional Past Alcohol Use History / Comment(s): quit smoking 2006, smoked for 30 yrs. Past Drug Use History: None Reported - Past Family History Mother Additional Family Medical History / Comment(s): EMPHYSEMA, possible lung cancer Medications and Allergies Home Medications Medication Instructions Recorded Confirmed Type Aspirin 81 mg PO DAILY 04/18/14 03/29/24 History Ipratropium-Albuterol Nebulize 3 ml INHALATION RT-QID 04/18/14 03/29/24 History [Duoneb 0.5 mg-3 mg/3 ml Soln] Metoprolol Succinate (ER) [Toprol 25 mg PO DAILY 04/18/14 03/29/24 History XL] Nitroglycerin Sl Tabs [Nitrostat] 0.4 mg SL Q5M PRN 04/18/14 03/29/24 History Omeprazole 40 mg PO DAILY 01/24/21 03/29/24 History Ascorbic Acid [Vitamin C] 1,000 mg PO DAILY 10/11/22 03/29/24 History Cholecalciferol [Vitamin D3 (125 125 mcg PO DAILY 10/11/22 03/29/24 History Mcg = 5000 Iu)] Budesonide [Pulmicort] 0.5 mg INHALATION RT-BID #60 each 05/03/23 03/29/24 Rx Azithromycin [Zithromax] 500 mg PO DAILY 03/29/24 03/29/24 History Beet Root 1,000 mg PO DAILY 03/29/24 03/29/24 History Formoterol Fumarate [Perforomist] 20 mcg INHALATION RT-BID 03/29/24 03/29/24 History Oregano Oil/Flaxseed Oil [Oregano 1 cap PO DAILY 03/29/24 03/29/24 History Oil 50-25 mg Capsule] Turmeric Root Extract [Turmeric] 500 mg PO DAILY 03/29/24 03/29/24 History Zinc Gluconate [Zinc] 50 mg PO DAILY 03/29/24 03/29/24 History Allergies Allergy/AdvReac Type Severity Reaction Status Date / Time terconazole [From Terazol 3] Allergy Rash/Hives Verified 03/29/24 13:31 codeine AdvReac Unknown Nausea & Verified 03/29/24 13:31 Vomiting hydrocodone [From Vicodin] AdvReac Unknown Nausea & Verified 03/29/24 13:31 Vomiting amoxicillin [Amoxicillin] AdvReac Nausea & Verified 03/29/24 13:31 Vomiting amoxicillin trihydrate AdvReac Rapid Verified 03/29/24 13:31 [From Augmentin] Heart Rate megestrol acetate AdvReac adrenal Verified 03/29/24 13:31 [From Megace] insufficiency nitrofurantoin AdvReac Nausea & Verified 03/29/24 13:31 Vomiting nitrofurantoin AdvReac Nausea & Verified 03/29/24 13:31 macrocrystalline Vomiting [From Macrobid] potassium clavulanate AdvReac Rapid Verified 03/29/24 13:31 [From Augmentin] Heart Rate Oilhayu-JRQ-[id number] Reductase AdvReac muscle Verified 03/29/24 13:31 Inhibitor cramps [Qxdhkhj-Vik-Bpi Reductase Inhibitor] sumatriptan [From Imitrex] AdvReac Rapid Verified 03/29/24 13:31 Heart Rate sumatriptan succinate AdvReac Rapid Verified 03/29/24 13:31 [From Imitrex] Heart Rate pnuemonia injection Allergy Anaphylaxis Uncoded 03/29/24 11:07 Physical Exam Vitals: Vital Signs Temp Pulse Resp BP Pulse Ox 04/01/24 07:19 97.5 F L 61 18 120/54 96 04/01/24 03:09 43 L 129/64 96 04/01/24 01:15 98.8 F 59 L 18 128/80 95 03/31/24 19:54 98.1 F 53 L 18 124/66 97 Intake and Output 03/31/24 04/01/24 04/01/24 22:59 06:59 14:59 Other: Voiding Method Toilet Results 03/29/24 11:30 04/01/24 04:06 Comprehensive Metabolic Panel 04/01/24 Range/Units 04:06 Potassium 4.2 (3.5-5.1) mmol/L Current Medications Generic Name Dose Route Start Last Admin Trade Name Freq PRN Reason Stop Dose Admin Albuterol Sulfate 2 puff 03/29/24 14:23 04/01/24 03:43 Albuterol Hfa Inhaler INHALATION 2 puff RT-Q2H PRN Administration Shortness Of Breath Or Wheezing Albuterol Sulfate 2 puff 03/29/24 16:00 04/01/24 08:32 Albuterol Hfa Inhaler INHALATION 2 puff RT-QID FERNANDO Administration Aspirin 81 mg 03/30/24 09:00 04/01/24 08:01 Aspirin 81 Mg PO 81 mg DAILY FERNANDO Administration Budesonide/Formoterol Fumarate 2 puff 03/29/24 20:00 04/01/24 08:33 Symbicort 80-4.5 Mcg Inhaler INHALATION 2 puff RT-BID FERNANDO Administration Cholecalciferol 125 mcg 03/30/24 09:00 04/01/24 08:00 Cholecalciferol 125 Mcg (5000 Iu) Tablet PO 125 mcg DAILY FERNANDO Administration Enoxaparin Sodium 40 mg 03/30/24 09:00 04/01/24 08:00 Enoxaparin 40 Mg/0.4 Ml Syringe SQ Not Given DAILY FERNANDO Guaifenesin/Dextromethorphan 10 ml 03/31/24 13:00 04/01/24 11:22 Guaifenesin-Dm 100-10mg/5ml 10 Ml Cup PO 10 ml Q6HR FERNANDO Administration Sodium Chloride 1,000 mls @ 75 mls/hr 03/29/24 14:15 04/01/24 11:22 Saline 0.9% IV 75 mls/hr .[id number] FERNANDO Administration Levofloxacin 750 mg 03/31/24 14:00 04/01/24 08:01 Levofloxacin 750 Mg Tab PO 750 mg DAILY FERNANDO Administration Protocol Methylprednisolone Sodium Succinate 60 mg 03/29/24 18:00 04/01/24 11:22 Methylprednisolone Sod Succi 125 Mg/2 Ml Vial IV 60 mg Q6HR FERNANDO Administration Naloxone HCl 0.2 mg 03/29/24 14:00 Naloxone 0.4 Mg/Ml 1 Ml Vial IVP Q2M PRN Opioid Reversal Ondansetron HCl 4 mg 03/29/24 14:00 Ondansetron 4 Mg/2 Ml Vial IVP Q6HR PRN Nausea And Vomiting Pantoprazole Sodium 40 mg 03/30/24 07:30 04/01/24 08:01 Pantoprazole 40 Mg Tablet PO 40 mg DAILY@0730 FERNANDO Administration Zinc Sulfate 220 mg 03/30/24 09:00 04/01/24 08:01 Zinc Sulfate 220 Mg Cap PO 220 mg DAILY FERNANDO Administration Intake and Output 03/31/24 04/01/24 04/01/24 22:59 06:59 14:59 Other: Voiding Method Toilet 03/29/24 11:30 04/01/24 04:06
--- NOTE | 2024-04-01 14:27 | CA ---
Transthoracic Echo Report Name: Olive Farfan Age: 63 Gender: F : 1960 Exam Date: 04/01/2024 07:39 Exam Location: [place] [facility] Ht (in): 67 Wt (lb): 150 Ordering Physician: Karolyn Pyle MD Attending/Referring Phys: Machinery Mover Jeanne Castellanos RDCS Procedure CPT: Indications: Bradycardia Cardiac Hx: Covid + Technical Quality: Technically difficult study Contrast 1: Total Dose (mL): Contrast 2: Total Dose (mL): MEASUREMENTS (Male / Female) Normal Values 2D ECHO LV Diastolic Diameter PLAX 5.7 cm 4.2 - 5.9 / 3.9 - 5.3 cm LV Systolic Diameter PLAX 3.6 cm IVS Diastolic Thickness 1.1 cm 0.6 - 1.0 / 0.6 - 0.9 cm LVPW Diastolic Thickness 0.9 cm 0.6 - 1.0 / 0.6 - 0.9 cm LV Relative Wall Thickness 0.4 RV Internal Dim ED PLAX 2.2 cm LA Systolic Diameter LX 4.9 cm 3.0 - 4.0 / 2.7 - 3.8 cm LV Diastolic Volume MOD BP 60.3 cm??? 67 - 155 / 56 - 104 cm??? LV Systolic Volume MOD BP 19.7 cm??? 22 - 58 / 19 - 49 cm??? LV Ejection Fraction MOD BP 67.4 % >= 55 % LV Cardiac Index MOD BP 1332.6 cm???/min???m??? LV Diastolic Volume MOD 4C 73.8 cm??? LV Systolic Volume MOD 4C 24.5 cm??? LV Ejection Fraction MOD 4C 66.8 % LV Cardiac Index MOD 4C 1617.0 cm???/min???m??? LV Diastolic Length 4C 6.6 cm LV Systolic Length 4C 5.5 cm LV Diastolic Volume MOD 2C 48.6 cm??? LV Systolic Volume MOD 2C 15.1 cm??? LV Ejection Fraction MOD 2C 68.9 % LV Cardiac Index MOD 2C 1098.5 cm???/min???m??? LV Diastolic Length 2C 6.8 cm LV Systolic Length 2C 5.2 cm LA Volume 84.4 cm??? 18 - 58 / 22 - 52 cm??? LA Volume Index 46.9 cm???/m??? 16 - 28 cm???/m??? M-MODE Aortic Root Diameter MM 3.2 cm LA Systolic Diameter MM 3.6 cm LA Ao Ratio MM 1.1 AV Cusp Separation MM 1.8 cm DOPPLER TR Peak Velocity 299.0 cm/s TR Peak Gradient 35.8 mmHg Right Ventricular Systolic Press 45.5 mmHg FINDINGS Left Ventricle Left ventricular ejection fraction is estimated at 55-60 %. Mildly increased septal wall thickness. Mildly increased left ventricular diastolic diameter. Normal left ventricular systolic function with no obvious regional wall motion abnormalities. Right Ventricle Normal right ventricular size and function. Mild pulmonary hypertension. Right Atrium Moderate right atrial dilatation. Left Atrium Severely increased left atrial diameter. Severely increased left atrial volume. Mildly increased left atrial area. Mitral Valve Severe mitral regurgitation. Aortic Valve Tricuspid Valve Pulmonic Valve Pericardium Small pericardial effusion. Pericardial effusion located anteriorly. Aorta Normal size aortic root and proximal ascending aorta. CONCLUSIONS Left ventricular ejection fraction 55-60% Mild increased left ventricular wall thickness RVSP 45 Severe mitral regurgitation. Consider PREETI if clinically indicated Small pericardial effusion without tamponade Previewed by: Dr. Pedro Cazares DO (Electronically Signed) Final Date: 01 April 2024 14:26
--- NOTE | 2024-04-01 19:28 | P.PN ---
Subjective Progress Note Date: 04/01/24 This is a 61-year-old female patient was hospitalized for increased dyspnea, cough, yellow sputum production, increased shortness of breath, active bronchospasm and wheezing. The patient got sick approximately 2 weeks ago and the patient had a febrile illness. Subsequently, the condition progressively got worse. She was given a course of Z-Leonardo for primary care physician. She came into the emergency and she tested positive for COVID-19 and COPD is actively in exacerbation. CAT scan of the chest was reviewed and there is no evidence of any pulmonary embolism. It is consistent with COPD. Do not appreciate any pulmonary infiltrates or pneumonia. The patient's pulse ox currently on 4 L of oxygen by nasal cannula and she is on O2 at 1 L. White cell count of 5.6 with a hemoglobin 15.7. D-dimer is 1.5 with a normal coagulation profile. Initial lactic acid level was at 3.1 dropped down to 2.6. Electrolytes are within normal limits. BUN is at 12 with a creatinine of 0.7. The rest of the viral screen was essentially negative. No pleurisy. No hemoptysis. She is known to have COPD. Her baseline FEV1 is in order of 52% of predicted. She is also known to have obstructive sleep apnea on CPAP therapy, coronary artery disease and hypertension. She quit smoking back in 2006. White cell count is at 5.6 with a hemoglobin 15.7. On 03/30/2024, the patient is being seen for a follow-up. Slightly improved compared to yesterday. Continues to have a congested cough. Producing yellow maya sputum. No new labs are available from today and labs are essentially from yesterday. The patient is COVID-19 positive and she has an acuity of exacerbation. She is on IV Solu-Medrol 60 mg every 6 hours. She is on Symbicort and albuterol HFA [id number]. She is also on Lovenox 40 mg for DVT prophylaxis. The procalcitonin level was at 0.03 and a lactic acid level is down to 1.7. No other significant events overnight. In terms of her oxygenation, the patient's pulse ox is currently 93% 2 L of O2 nasal cannula. 03/31/2024, the patient continues to be congested and she is bringing up thick yellowish sputum. The sputum Gram stain and culture is in progress and showing gram-negative bacillus. 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 I am going to start her on empiric antibiotic coverage and I chose Levaquin on this patient. Her procalcitonin level was 0.03. Nevertheless, the amount of sputum is quite extensive and is not typical for COVID-19. Based on that, we will start the patient on empiric antibiotic coverage. Lactic acid level is down to 1.7. The patient remains on oxygen and she remains on 2 L of O2 nasal cannula. Afebrile. No encephalopathy. No nausea or emesis. She is on Symbicort and Ventolin HFA 4 times a day. IV fl uids normal saline at 75 cc an hour. 04/01/2024, creatinine the patient is less bronchospastic and wheezy. Nevertheless, she continues to have episodes of cough, unable to bring up much sputum for now. Sputum sample f was collected during this current admission and it was negative for any acute microbial growth. She remains on steroids. She is on empiric antibiotic coverage with Levaquin. Potassium level is at 4.2 and a magnesium level is at 2.1. Procalcitonin level is negative. She is also being seen by cardiology regarding bradycardia exacerbated by beta-blockers. Metoprolol was held. Objective - Vital Signs Vital signs: Vital Signs Temp 97.5 F L 04/01/24 07:19 Pulse 61 04/01/24 07:19 Resp 18 04/01/24 07:19 BP 120/54 04/01/24 07:19 Pulse Ox 96 04/01/24 07:19 FiO2 Intake & Output 03/31/24 04/01/24 04/01/24 18:59 06:59 18:59 Other: Voiding Method Toilet # Voids 4 - Exam GENERAL EXAM: Alert, pleasant 63-year-old female, on 2 L nasal cannula, comfortable in no apparent distress. HEAD: Normocephalic. EYES: Normal reaction of pupils, equal size. NOSE: Clear with pink turbinates. THROAT: No erythema or exudates. NECK: No masses, no JVD. CHEST: No chest wall deformity. LUNGS: Equal air entry with few scattered axillary wheezes throughout the lung segura bilaterally CVS: S1 and S2 normal with no audible murmur, regular rhythm. ABDOMEN: No hepatosplenomegaly, normal bowel sounds, no guarding or rigidity. SPINE: No scoliosis or deformity SKIN: No rashes CENTRAL NERVOUS SYSTEM: No focal deficits, tone is normal in all 4 extremities. EXTREMITIES: There is no peripheral edema. No clubbing, no cyanosis. Peripheral pulses are intact. - Labs CBC & Chem 7: 03/29/24 11:30 04/01/24 04:06 Labs: Microbiology - Last 24 Hours (Table) 03/30/24 16:10 Gram Stain - Final Sputum Sputum Culture - Final Assessment and Plan Plan: Acute exacerbation of chronic COPD, likely secondary to COVID-19 infection. Acute COVID-19 infection, symptoms started approximately 2 weeks ago. The patient is outside the window for remdesivir. Superinfection with bacteria is felt to be less likely. Reviewed the CAT scan of the chest and it shows no evidence of any pulmonary embolism. D-dimer is at 1.5. No clear airspace disease or consolidations. Acute on chronic hypoxic respiratory failure currently on 1 L of oxygen by nasal cannula. CT angiogram of the chest showed COPD. No evidence of any pulmonary embolism. Chronic obstructive pulmonary disease with an FEV1 to 52% of predicted, oxygen dependent Former smoker, quit in 2006 Obstructive sleep apnea maintained on CPAP at 12 cm of water Coronary artery disease with previous stent placement 2 Raynaud's disease Fibromyalgia Hypertension Anxiety Plan Continue same treatment Continue Levaquin, empiric sputum sample is negative polymicrobial growth Continue current treatment including the bronchodilators check procalcitonin level was at 0.03 Outside the window for remdesivir IV Solu-Medrol 60 mg every 6 hours Hold beta-blockers We'll continue to follow
[2024-04-01] MEDS: METOPROLOL SUCCINATE (ER) 25 MG TAB.ER.24H PO SCH (23:09)
[2024-04-02 11:33] LABS: Glucose,Whole Blood 103 mg/dL (70-110)
--- NOTE | 2024-04-02 13:01 | P.PN ---
Subjective Progress Note Date: 04/02/24 HISTORY OF PRESENTING ILLNESS This is a pleasant 63-year-old with past medical history significant for COPD, fibromyalgia, GERD, CAD with prior stenting, previous tobacco abuse who presents secondary to shortness breath. She has been having a number of issues with shortness of breath or last few months. She was actually seen by Dr. Redd a few months ago secondary to abnormal EKG at PCPs office and underwent workup with echo as well as stress test. Stress test results are not currently available however had been performed approximately 3 weeks ago. Unfortunately over last 2 weeks she has not been feeling well with some increasing cough, shortness breath. She was found to be coded positive and is being treated for COPD exacerbation. Cardiology was consult and secondary to bradycardia. Alia velázquez denies any significant lightheadedness or dizziness. She did have sinus bradycardia with heart rates in the high 40s while sleeping at night. Occasionally she will stand up and get woozy however not frequent and has never had any syncope. She states she feels she is slowly improving. Troponin normal on presentation. Her metoprolol was discontinued and denies any real change in her symptoms. EKG showing normal sinus rhythm with nonspecific T-wave inversions 3 and aVF and occasional PVC. 04/02 Patient is seen and examined. Echocardiogram reveals EF of 55 to 60%, mild increased left ventricular wall thickness, RVSP 45, severe mitral regurgitation. Consider PREETI if clinically indicated. Small pericardial effusion without tamponade. Heart rate has been mostly in the 50s to 70s. She did drop to the 40s a few times during the night. Patient did have a run of nonsustained ventri cular tachycardia of 25-30 beats. Blood pressure 131/62, pulse ox 96% on 2 L nasal cannula. PHYSICAL EXAMINATION Vital signs reviewed. CONSTITUTIONAL: No apparent distress. HEENT: Head is normocephalic. Pupils are equal, round. Sclerae anicteric. Mucous membranes of the mouth are moist. No JVD. No carotid bruit. CHEST EXAMINATION: Lungs are clear to auscultation. No chest wall tenderness is noted on palpation or with deep breathing. HEART EXAMINATION: Regular rate and rhythm. S1, S2 heard. No murmurs, gallops or rub. ABDOMEN: Soft, nontender. Positive bowel sounds. EXTREMITIES: 2+ peripheral pulses, no lower extremity edema and no calf tenderness. NEUROLOGIC EXAMINATION: Patient is awake, alert and oriented x3. ASSESSMENT Asymptomatic sinus bradycardia mainly at night somewhat exacerbated by beta sergey NSVT Shortness breath Acute exacerbation of COPD COVID-19 infection CAD with prior history of PCI Hypertension Hyperlipidemia Occasional PVCs Severe mitral regurgitation PLAN Patient appears asymptomatic for many bradycardia and appears mainly at night. For now we will hold metoprolol however no absolute contraindications and does not appear symptomatic. Also symptoms appear related to COVID-19 infection. Plan for 14-day event monitor at the time of discharge. 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 Further evaluation of MR as an outpatient. Nurse practitioner note has been reviewed, I agree with documented findings and plan of care. Patient was seen and examined. Objective - Vital Signs Vital signs: Vital Signs Temp 97.9 F 04/02/24 01:32 Pulse 56 L 04/02/24 01:32 Resp 18 04/02/24 01:32 BP 131/62 04/02/24 01:32 Pulse Ox 96 04/02/24 01:32 FiO2 Intake & Output 04/01/24 04/02/24 04/02/24 18:59 06:59 18:59 Other: # Voids 1 1 - Labs CBC & Chem 7: 03/29/24 11:30 04/01/24 04:06 Labs: Microbiology - Last 24 Hours (Table) 03/30/24 16:10 Gram Stain - Final Sputum Sputum Culture - Final
[2024-04-02] MEDS: predniSONE 20 MG TAB PO SCH (13:18)
--- NOTE | 2024-04-02 14:18 | P.PN ---
Subjective Progress Note Date: 04/02/24 This is a 61-year-old female patient was hospitalized for increased dyspnea, cough, yellow sputum production, increased shortness of breath, active bronchospasm and wheezing. The patient got sick approximately 2 weeks ago and the patient had a febrile illness. Subsequently, the condition progressively got worse. She was given a course of Z-Leonardo for primary care physician. She came into the emergency and she tested positive for COVID-19 and COPD is actively in exacerbation. CAT scan of the chest was reviewed and there is no evidence of any pulmonary embolism. It is consistent with COPD. Do not appreciate any pulmonary infiltrates or pneumonia. The patient's pulse ox currently on 4 L of oxygen by nasal cannula and she is on O2 at 1 L. White cell count of 5.6 with a hemoglobin 15.7. D-dimer is 1.5 with a normal coagulation profile. Initial lactic acid level was at 3.1 dropped down to 2.6. Electrolytes are within normal limits. BUN is at 12 with a creatinine of 0.7. The rest of the viral screen was essentially negative. No pleurisy. No hemoptysis. She is known to have COPD. Her baseline FEV1 is in order of 52% of predicted. She is also known to have obstructive sleep apnea on CPAP therapy, coronary artery disease and hypertension. She quit smoking back in 2006. White cell count is at 5.6 with a hemoglobin 15.7. On 03/30/2024, the patient is being seen for a follow-up. Slightly improved compared to yesterday. Continues to have a congested cough. Producing yellow maya sputum. No new labs are available from today and labs are essentially from yesterday. The patient is COVID-19 positive and she has an acuity of exacerbation. She is on IV Solu-Medrol 60 mg every 6 hours. She is on Symbicort and albuterol HFA [id number]. She is also on Lovenox 40 mg for DVT prophylaxis. The procalcitonin level was at 0.03 and a lactic acid level is down to 1.7. No other significant events overnight. In terms of her oxygenation, the patient's pulse ox is currently 93% 2 L of O2 nasal cannula. 03/31/2024, the patient continues to be congested and she is bringing up thick yellowish sputum. The sputum Gram stain and culture is in progress and showing gram-negative bacillus. 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 I am going to start her on empiric antibiotic coverage and I chose Levaquin on this patient. Her procalcitonin level was 0.03. Nevertheless, the amount of sputum is quite extensive and is not typical for COVID-19. Based on that, we will start the patient on empiric antibiotic coverage. Lactic acid level is down to 1.7. The patient remains on oxygen and she remains on 2 L of O2 nasal cannula. Afebrile. No encephalopathy. No nausea or emesis. She is on Symbicort and Ventolin HFA 4 times a day. IV fl uids normal saline at 75 cc an hour. 04/01/2024, creatinine the patient is less bronchospastic and wheezy. Nevertheless, she continues to have episodes of cough, unable to bring up much sputum for now. Sputum sample f was collected during this current admission and it was negative for any acute microbial growth. She remains on steroids. She is on empiric antibiotic coverage with Levaquin. Potassium level is at 4.2 and a magnesium level is at 2.1. Procalcitonin level is negative. She is also being seen by cardiology regarding bradycardia exacerbated by beta-blockers. Metoprolol was held. On 04/02/2024, patient is being seen for a follow-up. The patient remains on 2 L of oxygen by nasal cannula. She encountered some sinus bradycardia and the patient was restarted on metoprolol at a dose of 25 mg p.o. daily. This is metoprolol XL. Meanwhile, in terms of COVID-19, the patient remains on IV Solu- Medrol and she can be transition to prednisone burst taper. She remains on Symbicort and Ventolin HFA [id number]. Sputum Gram stain and culture was negative. Chest x-ray was consistent with COPD. She is still feeling fatigued and tired and weak. No other new complaints otherwise for now. She remains on 2 L of oxygen by nasal cannula and her current pulse ox is 96%. No other significant events overnight. Her level of activity is improving and the patient has no nausea vomiting or diarrhea. She continues to have cough which is also improving. Objective - Vital Signs Vital signs: Vital Signs Temp 97.8 F 04/02/24 13:34 Pulse 61 04/02/24 13:34 Resp 18 04/02/24 13:34 BP 128/76 04/02/24 13:34 Pulse Ox 96 04/02/24 13:34 FiO2 Intake & Output 04/01/24 04/02/24 04/02/24 18:59 06:59 18:59 Other: Voiding Method Toilet # Voids 1 1 - Exam GENERAL EXAM: Alert, pleasant 63-year-old female, on 2 L nasal cannula, comfortable in no apparent distress. HEAD: Normocephalic. EYES: Normal reaction of pupils, equal size. NOSE: Clear with pink turbinates. THROAT: No erythema or exudates. NECK: No masses, no JVD. CHEST: No chest wall deformity. LUNGS: Equal air entry with few scattered axillary wheezes throughout the lung segura bilaterally CVS: S1 and S2 normal with no audible murmur, regular rhythm. ABDOMEN: No hepatosplenomegaly, normal bowel sounds, no guarding or rigidity. SPINE: No scoliosis or deformity SKIN: No rashes CENTRAL NERVOUS SYSTEM: No focal deficits, tone is normal in all 4 extremities. EXTREMITIES: There is no peripheral edema. No clubbing, no cyanosis. Peripheral pulses are intact. - Labs CBC & Chem 7: 03/29/24 11:30 04/01/24 04:06 Labs: Microbiology - Last 24 Hours (Table) 03/30/24 16:10 Gram Stain - Final Sputum Sputum Culture - Final Assessment and Plan Plan: Acute exacerbation of chronic COPD, likely secondary to COVID-19 infection. Acute COVID-19 infection, symptoms started approximately 2 weeks ago. The patient is outside the window for remdesivir. Superinfection with bacteria is felt to be less likely. Reviewed the CAT scan of the chest and it shows no evidence of any pulmonary embolism. D-dimer is at 1.5. No clear airspace disease or consolidations. Acute on chronic hypoxic respiratory failure currently on 2 L of oxygen by nasal cannula. CT angiogram of the chest showed COPD. No evidence of any pulmonary embolism. Chronic obstructive pulmonary disease with an FEV1 to 52% of predicted, oxygen dependent Former smoker, quit in 2006 Obstructive sleep apnea maintained on CPAP at 12 cm of water Coronary artery disease with previous stent placement 2 Raynaud's disease Fibromyalgia Hypertension Anxiety Plan Clinically improving Continue Levaquin, empiric Cough and congestion is also subsiding and the patient remains on Symbicort and albuterol HFA [id number] 4 times a day. sputum sample is negative polymicrobial growth Continue current treatment including the bronchodilators check procalcitonin level was at 0.03 Outside the window for remdesivir Stopped IV Solu-Medrol start the patient on prednisone burst taper Restart metoprolol at a lower dose titrate FiO2 We'll continue to follow
[2024-04-02 16:50] LABS: Glucose,Whole Blood 153 mg/dL (70-110)
--- NOTE | 2024-04-02 18:27 | P.PN ---
Subjective Progress Note Date: 04/02/24 Hospital course: Patient is a very pleasant 63-year-old female with a past medical history of CAD, HTN, GERD, COPD oxygen dependent on 2 L. She presented to the ED on 03/29/2024 with a chief complaint of possibly worsening shortness of breath accompanied by fever, chills, productive cough of yellow sputum, and fatigue. She went to go see her PCP Dr. Olivier on and received a IM injection for antibiotic and steroid. She has been taking Azithromycin since but with no relief. In the ED she underwent extensive evaluation. BP 139/58, HR 100, RR 20, 94% on 1L NC. Labs were completed and reviewed. CBC, Coag panel, CMP significant for Hct 46.6, Cl 109, AST 50, ALT 73. Lactic acid 3.1. COVID +. EKG sinus rhythm with PVCs. CTA chest multifocal opacities with no PE. Admitted for further workup and management. Patient's symptoms were not improving and she was having thick greenish sputum so pulmonology started the patient on Levaquin p.o 750 mg daily. Overnight on 03/31/2024 patient developed episodes of asymptomatic bradycardia and cardiology was also consulted. Physical exam: Vital signs reviewed and stable. General: Nontoxic, no distress and appears stated age. Derm: Skin warm and dry, normal coloration for ethnicity. Head: Atraumatic, normocephalic and symmetric. Eyes: EOM's intact, no lid lag, and anicteric sclera Mouth: no lip lesions, mucus membranes moist Cardiovascular: Bradycardic rate, regular rhythm, systolic murmur, positive posterior tibial pulses bilaterally, and cap refill < 2 seconds. Lungs: Respirations even, regular, and unlabored on 2 L O2 via nasal cannula. Lungs diminished greater in right lower lobe. No rhonchi, no rales, no wheezing, and no accessory muscle usage. Abdominal: soft, nontender to palpation, no guarding, no appreciable or ganomegaly Ext: ROM intact. No gross muscle atrophy, no edema, no contractures Neuro: Speech clear, face symmetrical and CN II-XII grossly intact with no noted focal neuro deficits Psych: Alert and oriented to person, place, time, and situation. Appropriate and pleasant affect. Assessment and Plan of Care: COPD with acute exacerbation COVID-19 Chronic hypoxia on 2 to 4 L at home History of heavy tobacco abuse. Quit smoking in 2006 -Patient currently on 2 L nasal cannula. Which is her home O2 -Placed for home oxygen evaluation to evaluate SpO2 with exertion determine oxygen needs -Continue with IV Solu-Medrol 60 mg every 6 hours -Continue with Symbicort 2 puffs twice daily -Continue with albuterol HFA as needed -Patient has a poor baseline. Patient states that she is not at her baseline. Patient states that her main issues dyspnea. She states that at rest she does fine but significantly declines with any exertion. -Pulmonology following, reviewed documentation in chart. 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 -Continue droplet/contact precautions Asymptomatic sinus bradycardia Severe mitral regurgitation CAD -Cardiology following, reviewed documentation in chart. -Echocardiogram completed showing preserved EF of 55 to 60% with mild left ventricular wall thickness and severe mitral regurgitation with small pericardial effusion without tamponade. -Recommend outpatient sleep study to rule out sleep apnea -Initially beta-sergey was discontinued secondary to sinus bradycardia, cardiology evaluated recommending decreased dose of metoprolol 25 mg daily. -Continue aspirin 81 mg daily -Order placed for TSH with free T4. GERD -Continue with Prilosec 40 mg p.o. daily Data and imaging reviewed: Morning labs reviewed. proBNP 4890. Procalcitonin 0.03. Vital signs reviewed. Blood pressure 125/65, heart rate 50, respiratory rate 20, temp 97.8 F, and SpO2 of 94% on 2 L. CODE STATUS: Full Code DVT prophylaxis: Lovenox Anticipated discharge date: Pending clinical course, likely within the next [address]: Home Patient was seen independently by Nurse Pracitioner. This document was prepared using [employer] dictation software. Please allow for errors in security software engineer, while rare they do occur. I reviewed the documentation as provided by the MARYAN above, who is the original author of this note. I agree with the documented assessment and plan, with the following changes: none Objective - Vital Signs Vital signs: Vital Signs Temp 97.8 F 04/02/24 07:49 Pulse 50 L 04/02/24 07:49 Resp 20 04/02/24 07:49 BP 125/65 04/02/24 07:49 Pulse Ox 94 L 04/02/24 07:49 FiO2 Intake & Output 04/01/24 04/02/24 04/02/24 18:59 06:59 18:59 Other: # Voids 1 1 - Labs CBC & Chem 7: 03/29/24 11:30 04/01/24 04:06 Labs: Microbiology - Last 24 Hours (Table) 03/30/24 16:10 Gram Stain - Final Sputum Sputum Culture - Final
[2024-04-02 20:26] LABS: Glucose,Whole Blood 139 mg/dL (70-110)
[2024-04-03 06:58] LABS: Glucose,Whole Blood 104 mg/dL (70-110)
[2024-04-03 07:57] VITALS: BP 127/81; PULSE 62; RESP 17; TEMP 99.1
[2024-04-03 10:16] LABS: HCT 45.3 % (37.2-46.3); HGB 15.1 g/dL (12.0-15.0); MCH 29.7 pg (27.0-32.0); MCHC 33.3 g/dL (32.0-37.0); Mean Platelet Volume 11.4 FL (9.5-12.2); NRBC Per 100 WBC 0 X 10*3/uL (0.00-0.01); Platelet Count 237 X 10*3/uL (140-440); RBC 5.09 X 10*6/uL (4.10-5.20); RDW 12.5 % (11.5-14.5); WBC 10.86 X 10*3/uL (4.50-10.00)
[2024-04-03 10:41] LABS: ALT 78 U/L (8-44); AST 20 U/L (13-35); Albumin 3.4 g/dL (3.8-4.9); Albumin/Globulin Ratio 2.27 Ratio (1.60-3.17); Alkaline Phosphatase 68 U/L (41-126); Blood Urea Nitrogen 20.8 mg/dL (9.0-27.0); Calcium 8.5 mg/dL (8.7-10.3); Chloride 103 mmol/L (96-109); Globulin 1.5 g/dL (1.6-3.3); Glucose 116 mg/dL (70-110); Potassium 4.5 mmol/L (3.5-5.5); Sodium 141 mmol/L (135-145); Total Bilirubin 0.5 mg/dL (0.3-1.2); Total Protein 4.9 g/dL (6.2-8.2)
[2024-04-03 11:59] LABS: Glucose,Whole Blood 79 mg/dL (70-110)
--- NOTE | 2024-04-03 14:32 | P.DS ---
Providers Date of admission: 03/29/24 14:01 Expected date of discharge: 04/03/24 Attending physician: Rashad Cerda Consults: 03/29/24 14:00 Consult Physician Routine Consulting Provider: Makenzie Rogers Consult Reason/Comments: COPD/COVID Do you want consulting provider notified?: Yes 04/01/24 03:58 Consult Physician Routine Consulting Provider: Orlando Malone Consult Reason/Comments: bradycardia Do you want consulting provider notified?: Yes Primary care physician: Justino Olivier Hospital Course: Discharge Diagnosis: COPD with acute exacerbation. COVID-19. Chronic hypoxic respiratory failure on 2 to 4 L continuous home O2. History of heavy tobacco abuse. Quit smoking in 2006. Asymptomatic sinus bradycardia. Severe mitral regurgitation. CAD GERD Hospital course: Patient is a very pleasant 63-year-old female with a past medical history of CAD, HTN, GERD, COPD oxygen dependent on 2 L. She presented to the ED on 03/29/2024 with a chief complaint of possibly worsening shortness of breath accompanied by fever, chills, productive cough of yellow sputum, and fatigue. She went to go see her PCP Dr. Olivier on and received a IM injection for antibiotic and steroid. She has been taking Azithromycin since but with no relief. In the ED she underwent extensive evaluation. BP 139/58, HR 100, RR 20, 94% on 1L NC. Labs were completed and reviewed. CBC, Coag panel, CMP significant for Hct 46.6, Cl 109, AST 50, ALT 73. Lactic acid 3.1. COVID +. EKG sinus rhythm with PVCs. CTA chest multifocal opacities with no PE. Admitted for further workup and management. Patient's symptoms were not improving and she was having thick greenish sputum so pulmonology started the patient on Levaquin p.o 750 mg daily. Overnight on 03/31/2024 patient developed episodes of asymptomatic bradycardia and cardiology was also consulted. Patient completed 5 -day course of Levaquin. She is being discharged home on prednisone taper she remains on baseline home O2 with SpO2 greater than 90% with and without ambulation. Patient instructed to continue droplet precautions at discharge.. 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 Physical exam: Vital signs reviewed and stable. General: Nontoxic, no distress and appears stated age. Derm: Skin warm and dry, normal coloration for ethnicity. Head: Atraumatic, normocephalic and symmetric. Eyes: EOM's intact, no lid lag, and anicteric sclera Mouth: no lip lesions, mucus membranes moist Cardiovascular: Bradycardic rate, regular rhythm, systolic murmur, positive posterior tibial pulses bilaterally, and cap refill < 2 seconds. Lungs: Respirations even, regular, and unlabored on 2 L O2 via nasal cannula. Lungs diminished greater in right lower lobe. No rhonchi, no rales, no wheezing, and no accessory muscle usage. Abdominal: soft, nontender to palpation, no guarding, no appreciable organomegaly Ext: ROM intact. No gross muscle atrophy, no edema, no contractures Neuro: Speech clear, face symmetrical and CN II-XII grossly intact with no noted focal neuro deficits Psych: Alert and oriented to person, place, time, and situation. Appropriate and pleasant affect. A total of 36 minutes of time were spent preparing this complex discharge summary. Pt was discharged on 04/03/2024 at 10:31 AM Patient was seen independently by Nurse Practitioner. This document was prepared using Autopilot dictation software. Please allow for errors in burglar alarm mechanic while rare they do occur. I reviewed the documentation as provided by the MARYAN above, who is the original author of this note. I agree with the documented assessment and plan, with the following changes: none Patient Condition at Discharge: Stable Plan - Discharge Summary Discharge Rx Participant: No New Discharge Prescriptions: New predniSONE See Taper PO DIRECTED 12 Days #30 tab Albuterol Inhaler [Ventolin Hfa Inhaler] 2 puff INHALATION RT-QID #1 inh Continue Metoprolol Succinate (ER) [Toprol XL] 25 mg PO DAILY Aspirin 81 mg PO DAILY Nitroglycerin Sl Tabs [Nitrostat] 0.4 mg SL Q5M PRN PRN Reason: Chest Pain Ipratropium-Albuterol Nebulize [Duoneb 0.5 mg-3 mg/3 ml Soln] 3 ml INHALATION RT-QID Cholecalciferol [Vitamin D3 (125 Mcg = 5000 Iu)] 125 mcg PO DAILY Ascorbic Acid [Vitamin C] 1,000 mg PO DAILY Budesonide [Pulmicort] 0.5 mg INHALATION RT-BID #60 each Beet Root 1,000 mg PO DAILY Zinc Gluconate [Zinc] 50 mg PO DAILY Formoterol Fumarate [Perforomist] 20 mcg INHALATION RT-BID Omeprazole 40 mg PO DAILY Turmeric Root Extract [Turmeric] 500 mg PO DAILY Oregano Oil/Flaxseed Oil [Oregano Oil 50-25 mg Capsule] 1 cap PO DAILY Discontinued Azithromycin [Zithromax] 500 mg PO DAILY Discharge Medication List Aspirin 81 mg PO DAILY 04/18/14 [History] Ipratropium-Albuterol Nebulize [Duoneb 0.5 mg-3 mg/3 ml Soln] 3 ml INHALATION RT-QID 04/18/14 [History] Metoprolol Succinate (ER) [Toprol XL] 25 mg PO DAILY 04/18/14 [History] Nitroglycerin Sl Tabs [Nitrostat] 0.4 mg SL Q5M PRN 04/18/14 [History] Omeprazole 40 mg PO DAILY 01/24/21 [History] Ascorbic Acid [Vitamin C] 1,000 mg PO DAILY 10/11/22 [History] Cholecalciferol [Vitamin D3 (125 Mcg = 5000 Iu)] 125 mcg PO DAILY 10/11/22 [History] Budesonide [Pulmicort] 0.5 mg INHALATION RT-BID #60 each 05/03/23 [Rx] Beet Root 1,000 mg PO DAILY 03/29/24 [History] Formoterol Fumarate [Perforomist] 20 mcg INHALATION RT-BID 03/29/24 [History] Oregano Oil/Flaxseed Oil [Oregano Oil 50-25 mg Capsule] 1 cap PO DAILY 03/29/24 [History] Turmeric Root Extract [Turmeric] 500 mg PO DAILY 03/29/24 [History] Zinc Gluconate [Zinc] 50 mg PO DAILY 03/29/24 [History] Albuterol Inhaler [Ventolin Hfa Inhaler] 2 puff INHALATION RT-QID #1 inh 04/03/24 [Rx] predniSONE See Taper PO DIRECTED 12 Days #30 tab 04/03/24 [Rx] Follow up Appointment(s)/Referral(s): Diana Redd MD [STAFF PHYSICIAN] - 1 Week Justino Olivier MD [Primary Care Provider] - 1-2 days Makenzie Rogers MD [STAFF PHYSICIAN] - 1 Week Patient Instructions/Handouts: Coronavirus Disease 2019 (COVID-19), Droplet Precautions (GEN), COVID-19 and Chronic Health Conditions (DC) Activity/Diet/Wound Care/Special Instructions: Activity: As tolerated. Take breaks as needed. Diet: Heart healthy and carb consistent diet. Avoid salts, or foods with hidden salts such as canned or boxed foods and frozen dinners. Extra salt makes your heart work harder and traps the fluid in your body for longer. 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 Take all of your medications as directed and remember to keep all of your doctor's appointments and follow-up as needed. Thank you for allowing us to participate in your care, it was truly a pleasure having you for our patient!!! . Discharge Disposition: HOME SELF-CARE
--- NOTE | 2024-04-03 16:19 | P.PN ---
Subjective Progress Note Date: 04/03/24 This is a 61-year-old female patient was hospitalized for increased dyspnea, cough, yellow sputum production, increased shortness of breath, active bronchospasm and wheezing. The patient got sick approximately 2 weeks ago and the patient had a febrile illness. Subsequently, the condition progressively got worse. She was given a course of Z-Leonardo for primary care physician. She came into the emergency and she tested positive for COVID-19 and COPD is actively in exacerbation. CAT scan of the chest was reviewed and there is no evidence of any pulmonary embolism. It is consistent with COPD. Do not appreciate any pulmonary infiltrates or pneumonia. The patient's pulse ox currently on 4 L of oxygen by nasal cannula and she is on O2 at 1 L. White cell count of 5.6 with a hemoglobin 15.7. D-dimer is 1.5 with a normal coagulation profile. Initial lactic acid level was at 3.1 dropped down to 2.6. Electrolytes are within normal limits. BUN is at 12 with a creatinine of 0.7. The rest of the viral screen was essentially negative. No pleurisy. No hemoptysis. She is known to have COPD. Her baseline FEV1 is in order of 52% of predicted. She is also known to have obstructive sleep apnea on CPAP therapy, coronary artery disease and hypertension. She quit smoking back in 2006. White cell count is at 5.6 with a hemoglobin 15.7. On 03/30/2024, the patient is being seen for a follow-up. Slightly improved compared to yesterday. Continues to have a congested cough. Producing yellow maya sputum. No new labs are available from today and labs are essentially from yesterday. The patient is COVID-19 positive and she has an acuity of exacerbation. She is on IV Solu-Medrol 60 mg every 6 hours. She is on Symbicort and albuterol HFA [id number]. She is also on Lovenox 40 mg for DVT prophylaxis. The procalcitonin level was at 0.03 and a lactic acid level is down to 1.7. No other significant events overnight. In terms of her oxygenation, the patient's pulse ox is currently 93% 2 L of O2 nasal cannula. 03/31/2024, the patient continues to be congested and she is bringing up thick yellowish sputum. The sputum Gram stain and culture is in progress and showing gram-negative bacillus. 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 I am going to start her on empiric antibiotic coverage and I chose Levaquin on this patient. Her procalcitonin level was 0.03. Nevertheless, the amount of sputum is quite extensive and is not typical for COVID-19. Based on that, we will start the patient on empiric antibiotic coverage. Lactic acid level is down to 1.7. The patient remains on oxygen and she remains on 2 L of O2 nasal cannula. Afebrile. No encephalopathy. No nausea or emesis. She is on Symbicort and Ventolin HFA 4 times a day. IV fl uids normal saline at 75 cc an hour. 04/01/2024, creatinine the patient is less bronchospastic and wheezy. Nevertheless, she continues to have episodes of cough, unable to bring up much sputum for now. Sputum sample f was collected during this current admission and it was negative for any acute microbial growth. She remains on steroids. She is on empiric antibiotic coverage with Levaquin. Potassium level is at 4.2 and a magnesium level is at 2.1. Procalcitonin level is negative. She is also being seen by cardiology regarding bradycardia exacerbated by beta-blockers. Metoprolol was held. On 04/02/2024, patient is being seen for a follow-up. The patient remains on 2 L of oxygen by nasal cannula. She encountered some sinus bradycardia and the patient was restarted on metoprolol at a dose of 25 mg p.o. daily. This is metoprolol XL. Meanwhile, in terms of COVID-19, the patient remains on IV Solu- Medrol and she can be transition to prednisone burst taper. She remains on Symbicort and Ventolin HFA [id number]. Sputum Gram stain and culture was negative. Chest x-ray was consistent with COPD. She is still feeling fatigued and tired and weak. No other new complaints otherwise for now. She remains on 2 L of oxygen by nasal cannula and her current pulse ox is 96%. No other significant events overnight. Her level of activity is improving and the patient has no nausea vomiting or diarrhea. She continues to have cough which is also improving. 04/03/2024, patient is doing well. No new specific complaints. She was started on prednisone burst taper. Still having some limited cough and congestion. Unable to bring up much sputum. Cardiac rhythm is stable and there is no significant bradycardia arrhythmias noted. Blood work shows a white cell count of 20 with a hemoglobin of 15.1 and a platelet count of 237. No other significant events overnight. She is ambulating. She remains on oxygen 2 L/min nasal cannula. Objective - Vital Signs Vital signs: Vital Signs Temp 99.1 F 04/03/24 07:41 Pulse 62 04/03/24 07:41 Resp 17 04/03/24 07:41 BP 127/81 04/03/24 07:41 Pulse Ox 96 04/03/24 08:49 FiO2 Intake & Output 04/02/24 04/03/24 04/03/24 18:59 06:59 18:59 Other: Voiding Method Toilet Toilet Toilet # Voids 2 3 - Exam GENERAL EXAM: Alert, pleasant 63-year-old female, on 2 L nasal cannula, comfortable in no apparent distress. HEAD: Normocephalic. EYES: Normal reaction of pupils, equal size. NOSE: Clear with pink turbinates. THROAT: No erythema or exudates. NECK: No masses, no JVD. CHEST: No chest wall deformity. LUNGS: Equal air entry with few scattered axillary wheezes throughout the lung segura bilaterally CVS: S1 and S2 normal with no audible murmur, regular rhythm. ABDOMEN: No hepatosplenomegaly, normal bowel sounds, no guarding or rigidity. SPINE: No scoliosis or deformity SKIN: No rashes CENTRAL NERVOUS SYSTEM: No focal deficits, tone is normal in all 4 extremities. EXTREMITIES: There is no peripheral edema. No clubbing, no cyanosis. Peripheral pulses are intact. - Labs CBC & Chem 7: 04/03/24 03:31 04/03/24 03:28 Labs: Abnormal Lab Results - Last 24 Hours (Table) 04/02/24 04/02/24 04/03/24 Range/Units 16:49 20:24 03:28 WBC (4.50-10.00) X 10*3/uL Hgb (12.0-15.0) g/dL BUN/Creatinine Ratio 26.00 H (12.00-20.00) Ratio Glucose 116 H (70-110) mg/dL POC Glucose (mg/dL) 153 H 139 H (70-110) mg/dL Calcium 8.5 L (8.7-10.3) mg/dL ALT 78 H (8-44) U/L Total Protein 4.9 L (6.2-8.2) g/dL Albumin 3.4 L (3.8-4.9) g/dL Globulin 1.5 L (1.6-3.3) g/dL TSH 0.313 L (0.350-5.500) UIU/ML 04/03/24 Range/Units 03:31 WBC 10.86 H (4.50-10.00) X 10*3/uL Hgb 15.1 H (12.0-15.0) g/dL BUN/Creatinine Ratio (12.00-20.00) Ratio Glucose (70-110) mg/dL POC Glucose (mg/dL) (70-110) mg/dL Calcium (8.7-10.3) mg/dL ALT (8-44) U/L Total Protein (6.2-8.2) g/dL Albumin (3.8-4.9) g/dL Globulin (1.6-3.3) g/dL TSH (0.350-5.500) UIU/ML Assessment and Plan Plan: Acute exacerbation of chronic COPD, likely secondary to COVID-19 infection. Acute COVID-19 infection, symptoms started approximately 2 weeks ago. The patient is outside the window for remdesivir. Superinfection with bacteria is felt to be less likely. Reviewed the CAT scan of the chest and it shows no evidence of any pulmonary embolism. D-dimer is at 1.5. No clear airspace disease or consolidations. Acute on chronic hypoxic respiratory failure currently on 2 L of oxygen by nasal cannula. CT angiogram of the chest showed COPD. No evidence of any pulmonary embolism. Chronic obstructive pulmonary disease with an FEV1 to 52% of predicted, oxygen dependent Former smoker, quit in 2006 Obstructive sleep apnea maintained on CPAP at 12 cm of water Coronary artery disease with previous stent placement 2 Raynaud's disease Fibromyalgia Hypertension Anxiety Plan Clinically improving and the patient's overall condition is stable and the patient can be discharged home today. Continue steroids with a prednisone burst taper an outpatient basis Breathing medication including nebulized treatments with albuterol Has home O2 Discharge home today to be followed up on outpatient basis
== END 2024-04-03 13:40 | disposition home or self-care (01) | DRG 177 ==
LOC: EC 10:59 → 4SSUR 14:01
PROVIDERS: ADMIT Student in an Organized Health Care Education/Training Program; ATTEND Student in an Organized Health Care Education/Training Program
PROC: 8E0ZXY6 Isolation (ICD-10-PCS; principal; 2024-03-29)
DX: U07.1 COVID-19 (principal); J12.82 Pneumonia due to coronavirus disease 2019; J96.21 Acute and chronic respiratory failure with hypoxia; I31.39 Other pericardial effusion (noninflammatory); E87.20 Acidosis, unspecified; I47.20 Ventricular tachycardia, unspecified; J44.0 Chronic obstructive pulmonary disease with (acute) lower respiratory infection; J44.1 Chronic obstructive pulmonary disease with (acute) exacerbation; Z99.81 Dependence on supplemental oxygen; I10 Essential (primary) hypertension; I34.0 Nonrheumatic mitral (valve) insufficiency; R00.1 Bradycardia, unspecified; K21.9 Gastro-esophageal reflux disease without esophagitis; G47.33 Obstructive sleep apnea (adult) (pediatric); I25.10 Atherosclerotic heart disease of native coronary artery without angina pectoris; I73.00 Raynaud's syndrome without gangrene; M79.7 Fibromyalgia; F41.9 Anxiety disorder, unspecified; E78.5 Hyperlipidemia, unspecified; I49.3 Ventricular premature depolarization; Z79.82 Long term (current) use of aspirin; Z79.51 Long term (current) use of inhaled steroids; I25.2 Old myocardial infarction; Z95.5 Presence of coronary angioplasty implant and graft; Z87.891 Personal history of nicotine dependence; Z79.899 Other long term (current) drug therapy; Z78.9 Other specified health status
CPT/HCPCS: 36415; 71045; 71046; 71275; 80053; 83605; 83735; 83880; 84132; 84145; 84439; 84443; 84484; 85025; 85027; 85379; 85610; 85730; 87070; 87205; 87449; 87636; 93005; 93308; 94640; 94760; 96361; 96365; 96366; 96375; 96376; 99291

== ENCOUNTER → 2024-06-23 | Outpatient (CLI) | payer MEDICARE, OTHER ==
[2024-06-23 14:59] LABS: HCT 46.6 % (37.2-46.3); HGB 15.2 g/dL (12.0-15.0); MCH 29.8 pg (27.0-32.0); MCHC 32.6 g/dL (32.0-37.0); MCV 91.4 FL (80.0-97.0); Mean Platelet Volume 10.5 FL (9.5-12.2); NRBC Per 100 WBC 0 X 10*3/uL (0.00-0.01); Platelet Count 190 X 10*3/uL (140-440); RDW 13.8 % (11.5-14.5); WBC 6.97 X 10*3/uL (4.50-10.00)
[2024-06-23 16:13] LABS: Carbon Dioxide 25.7 mmol/L (21.6-31.8); Chloride 105 mmol/L (96-109); Potassium 4.1 mmol/L (3.5-5.5); Sodium 144 mmol/L (135-145)
== END | disposition home or self-care (01) ==
LOC: LABPAT 11:18
PROVIDERS: ATTEND Internal Medicine Interventional Cardiology
DX: Z01.812 Encounter for preprocedural laboratory examination (principal); I34.0 Nonrheumatic mitral (valve) insufficiency
CPT/HCPCS: 36415; 80051; 82565; 84520; 85027

== ENCOUNTER → 2024-06-30 | Day surgery (SDC) | payer MEDICARE, OTHER ==
[~2024-06-30] MED LIST changes: -ASPIRIN 325 MG TAB PO STA; +ATORVASTATIN 80 MG TAB PO STA; +BENZOCAINE SPRAY 1 CAN TOPICAL PRN; -HEPARIN SODIUM 1,000 UN/ML (10ML VL) IV ONE; -IOPAMIDOL-370 125ML BTL INJ ONE; -LIDOCAINE 1% INJ 10MG/ML (20 ML MDV) SQ ONE; +MIDAZOLAM 2 MG/2 ML VIAL IV PRN; -SODIUM CHLORIDE 0.9% 1,000 ML IV ONE; -SODIUM CHLORIDE 0.9% 1,000 ML in EMPTY BAG 1 BAG IV ONE; -VERAPAMIL SYRINGE (5 MG/10 ML) INTRAARTER ONE; -fentaNYL (PF) 50 MCG/ML 2 ML AMP IV ONE; +fentaNYL (PF) 50 MCG/ML 5 ML AMP IVP PRN
[2024-06-30] MEDS: IV FLUID CONTINUATION 1,000 ML IV ONE ×2 (08:20→08:48)
[2024-06-30] MEDS: ASPIRIN 325 MG TAB PO STA (08:25)
[2024-06-30] MEDS: EMPTY BAG 1 BAG with SODIUM CHLORIDE 0.9% 1,000 ML IV ONE (08:26)
[2024-06-30 08:34] VITALS: TEMP 97.2
[2024-06-30] MEDS: BENZOCAINE SPRAY 1 EACH MM ONE (09:15)
[2024-06-30] MEDS: MIDAZOLAM 2 MG/2 ML VIAL IVP ONE ×2 (09:22→09:25)
[2024-06-30] MEDS: fentaNYL (PF) 50 MCG/ML 2 ML AMP IVP ONE (09:22)
--- NOTE | 2024-06-30 09:40 | P.PCN ---
Date of Procedure: 06/30/24 Description of Procedure: Indication: Mitral regurgitation Procedure Description: After explaining the procedure to the patient, it's risk and complications, blood pressure, heart rate and O2 saturation were monitored. The throat was sprayed with Cetacaine. Patient received 3 mg intravenous Versed, 50 mcg intravenous fentanyl. The probe was introduced into the esophagus without difficulty. Images were obtained. Following that, the probe was removed. There was no immediate complication. Findings: Left atrial size is dilated, left atrial appendage is normal. Left ventricular size and systolic function are normal. The aortic valve is a tricuspid valve and appears to be normal. The mitral valve shows prolapse of the posterior mitral valve leaflets. Tricuspid valve is normal. Pulmonic valve is normal. Descending thoracic aorta appears to be normal. No pericardial effusion was noted. Contrast bubble study revealed no shunting across the interatrial septum. Doppler: Pulse wave and color Doppler were obtained, and revealed severe mitral regurgitation with mild tricuspid regurgitation. There was no shunting across the interatrial septum. Conclusion: 1. Dilated left atrium with normal appearance of the left atrial appendage 2. Normal ventricle size and systolic function 3. Mitral valve prolapse with severe mitral regurgitation with multiple jets 4. Mild tricuspid regurgitation 5. No shunting across the interatrial septum Sedation: 15 minutes
[2024-06-30] MEDS: LIDOCAINE 1% INJ 10MG/ML (20 ML MDV) SQ ONE (09:45)
[2024-06-30] MEDS: VERAPAMIL SYRINGE (5 MG/10 ML) INTRAARTER ONE (09:48)
[2024-06-30] MEDS: HEPARIN SODIUM,PORCINE 10,000 UNIT in SODIUM CHLORIDE 0.9% 1,000 ML IRRIGATION PRN (10:05)
[2024-06-30] MEDS: HEPARIN SODIUM,PORCINE (1 ML) 2,500 UNIT in SODIUM CHLORIDE 0.9% 250 ML IRRIGATION PRN (10:05)
[2024-06-30] MEDS: HEPARIN SODIUM 1,000 UN/ML (10ML VL) IV ONE (10:05)
[2024-06-30] MEDS: IOPAMIDOL-370 100ML BTL INJ ONE (10:17)
[2024-06-30 10:26] LABS: O2 Sat Blood Gas 71.6 %
[2024-06-30 10:27] LABS: O2 Sat Blood Gas 64.1 %
--- NOTE | 2024-06-30 10:36 | P.CARDCATH ---
Date of Procedure: 06/30/24 Description of Procedure: Cardiac Catheterization: The patient is a 63-year-old female with a known history of CAD, status post PCI and stenting, history of mitral valve disease and mitral valve prolapse with severe mitral regurgitation and symptoms of progressive dyspnea. Recommendations were made regarding cardiac catheterization, the risks and the complications were discussed with the patient who is in full understanding and agreement. Procedure Description: Patient was brought to laborer/grade check in fasting semi-sedated state after receiving Fentanyl and Benadryl achieiving moderate conscious sedated state. Using Xylocaine Anesthesia and modified Seldinger technique, a 6-Vietnamese sheath was introduced in the right radial artery . The intravenous catheter in the right cephalic vein was exchanged to a 6 Vietnamese sheath. Right heart catheterization was performed using Tobias-Dany catheter, multiple pressure and samples were obtained, cardiac output by thermodilution was calculated. Subsequently, selective coronary angiography was performed using a 5-Vietnamese 3.5 bend Leora catheter. Multiple views of the coronary artery including hemiaxial views were obtained. The 5 Vietnamese pigtail catheter was used to cross the aortic valve and LVEDP was calculated. A 30 degree ANTHONY view of the left ventricle was obtained. Following that, catheter and sheath were removed. Hemostasis was obtained with deployment of vascular band and compression of the right brachial area. There was no immediate complication. Patient was returned to room in stable condition. Of note, the patient received a total of 3500 units of intravenous heparin as well as intra-arterial verapamil. Findings: Left main: This is a short size vessel, bifurcating into LAD and left circumflex, left main has no obstructive disease. LAD: This is a large size vessel, reaching to the apex with a wraparound apex segment giving rise to small diagonal branch in the midsegment. The LAD and its branches have no obstructive disease Left circumflex: This is a large nondominant vessel giving rise to a large obtuse marginal branch that has no obstructive disease RCA: This is a large dominant vessel bifurcating into PDA and PLV the stented segment in the proximal RCA is patent with minimal plaque of 10% in the midsegment. Left Ventriculogram: Performed in the 30 degree ANTHONY view and revealed a normal left ventricular size and systolic function with 3-4+ mitral regurgitation Hemodynamics: Pulmonary artery systolic of 35 with a diastolic of 5 and a mean of 18 mmHg, right ventricular systolic pressure of 35 with an end-diastolic of 4 mmHg, right atrium A wave of 10, V wave of 6 with a mean of 5 mmHg. There was no gradient across the aortic valve, LVEDP was 10-14 mmHg. Cardiac output by thermodilution 5.2 L/min with an index of 3 L/min/m. Pulmonary artery saturation 72%, right atrium 64% arterial 90%. Cardiac output by Trini 4.8 L/min with an index of 2.7 L/min/m Conclusion: 1. No evidence of restenosis of the stented right coronary artery 2. No obstructive disease in the LAD and left circumflex 3. Normal ventricle size and systolic function with 3-4+ mitral regurgitation 4. No evidence of pulmonary hypertension Recommendations: The patient will continue present therapy, she will be followed closely regarding her mitral valve to see if mitral valve repair is indicated. The findings and the recommendations were discussed with the patient and the family and they were in full understanding and agreement. Duration of sedation is 37 minutes.
[2024-06-30 13:32] VITALS: BP 109/52; RESP 18
[2024-06-30 18:33] VITALS: PULSE 72
== END | disposition home or self-care (01) ==
LOC: CATHCVL 07:41
PROVIDERS: ATTEND Internal Medicine Interventional Cardiology
DX: I08.1 Rheumatic disorders of both mitral and tricuspid valves (principal); J44.9 Chronic obstructive pulmonary disease, unspecified; M19.90 Unspecified osteoarthritis, unspecified site; I25.10 Atherosclerotic heart disease of native coronary artery without angina pectoris; E78.2 Mixed hyperlipidemia; I10 Essential (primary) hypertension; F10.90 Alcohol use, unspecified, uncomplicated; Z87.891 Personal history of nicotine dependence; Z88.0 Allergy status to penicillin; Z88.1 Allergy status to other antibiotic agents; Z88.5 Allergy status to narcotic agent; Z88.8 Allergy status to other drugs, medicaments and biological substances; Z79.899 Other long term (current) drug therapy
CPT/HCPCS: 93312; 93320; 93325; 93460; 85018; 82810; 99152; C1769 ×2; C1894; C1751; J2250; J1644 ×3; J2003; J3010; Q9967

== ENCOUNTER → 2024-12-20 | Outpatient (CLI) | payer MEDICARE | END | disposition home or self-care (01) | LOC: LABWHC1 14:06 | PROVIDERS: ATTEND Nurse Practitioner Adult Health | DX: I34.1 Nonrheumatic mitral (valve) prolapse (principal); R06.02 Shortness of breath | CPT/HCPCS: 36415; 83880 ==